=== PATIENT | male | born 1945 | race Caucasian/White ===

== ENCOUNTER 2017-09-27 11:20 | Outpatient (CLI) | payer MEDICARE | END 2017-09-28 11:21 | disposition EMS.NT | LOC: EMS 11:20 | PROVIDERS: ATTEND Surgery | DX: R68.89 Other general symptoms and signs (principal) ==

== ENCOUNTER 2021-04-19 16:29 | Outpatient (CLI) | payer MEDICARE | END 2021-04-19 16:30 | disposition critical access hospital (66) | LOC: EMS 16:29 | DX: Z03.89 Encounter for observation for other suspected diseases and conditions ruled out (principal); Z74.09 Other reduced mobility | CPT/HCPCS: A0425; A0429 ==

== ENCOUNTER 2021-04-19 17:07 | Observation (INO) | payer MEDICARE ==
--- NOTE | 2021-04-19 17:58 | ED Physician Documentation ---
History of Present Illness - Stated complaint Stated Complaint: BOARDING - Chief complaint Chief Complaint: General - Additonal information Additional information: 75-year-old diabetic male presents to the emergency department requesting that he be sent to an assisted or half-way facility. 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 He was discharged to the [facility] in [place]. After being there for less than 24 hours they do not feel that they can adequately meet his care needs. They feel that he requires too much help with transfer and the patient does not feel safe with his care by himself or with transfers. he reports falling out of his wheelcair twice after being discharged. He has no acute concerns at this time other than the inability to adequately care for himself at [facility]. Review of Systems Constitutional: denies: Fever, Chills Nose: reports: Reviewed and negative Throat: reports: Reviewed and negative Cardiac: reports: Reviewed and negative Respiratory: reports: Reviewed and negative GI: reports: Reviewed and negative : reports: Reviewed and negative Skin: reports: Reviewed and negative Musculoskeletal: reports: Other (Right BKA) PD PAST MEDICAL HISTORY - Past Medical History Cardiovascular: High cholesterol Endocrine/Autoimmune: Type 2 diabetes - Past Surgical History Past Surgical History: Yes Ortho: Spine surgery - Present Medications Home Medications: Ambulatory Orders Medication Instructions Recorded Confirmed Acetaminophen [Tylenol] 650 mg PO Q4HR PRN 04/19/21 04/19/21 Amlodipine Besylate [Norvasc] 10 mg PO DAILY 04/19/21 04/19/21 Carisoprodol [Soma] 350 mg PO DAILY PRN 04/19/21 04/19/21 Ferrous Sulfate 325 mg PO DAILY 04/19/21 04/19/21 Gabapentin [Neurontin] 300 mg PO BID 04/19/21 04/19/21 Hydralazine HCl 100 mg PO TID 04/19/21 04/19/21 Insulin Glargine [Lantus Solostar] 15 unit SQ HS 04/19/21 04/19/21 Lisinopril [Zestril] 40 mg PO DAILY 04/19/21 04/19/21 Melatonin 3 mg PO HS 04/19/21 04/19/21 Morphine ER [Morphine Sulfate ER] 15 mg PO Q4HR PRN 04/19/21 04/19/21 Multivit with Iron,Minerals 1 each PO DAILY 04/19/21 04/19/21 [Complete Senior] Naloxone HCl [Narcan] 4 mg NS PRN PRN 04/19/21 04/19/21 Oxycodone HCl [Roxicodone] 15 mg PO Q4HR PRN 04/19/21 04/19/21 Pantoprazole [Protonix] 40 mg PO DAILY 04/19/21 04/19/21 Tamsulosin [Flomax] 0.4 mg PO DAILY 04/19/21 04/19/21 polyethylene glycoL 3350 [Miralax] 17 gm PO DAILY PRN 04/19/21 04/19/21 - Allergies Allergies/Adverse Reactions: Allergies Allergy/AdvReac Type Severity Reaction Status Date / Time ceftriaxone sodium * Allergy Severe burning in Verified 04/19/21 17:36 [From Rocephin] lungs prednisone Allergy Severe breathing Verified 04/19/21 17:36 problems vancomycin Allergy Severe bleeding Verified 04/19/21 17:36 from eyes and ears NSAIDS (Non-Steroidal Allergy Intermediate stomach Verified 04/19/21 17:36 Anti-Inflamma problems amoxicillin [From Augmentin] Allergy Unknown Verified 04/19/21 17:36 bee venom protein (honey bee) Allergy Anaphylaxis Verified 04/19/21 17:36 cephalexin Allergy Unknown Verified 04/19/21 17:36 ciprofloxacin Allergy abdominal Verified 04/19/21 17:36 pain ciprofloxacin HCl * Allergy abdominal Verified 04/19/21 17:36 [From Cipro] pain clavulanic acid Allergy Unknown Verified 04/19/21 17:36 [From Augmentin] piroxicam [From Feldene] Allergy Unknown Verified 04/19/21 17:36 pravastatin [From Pravachol] Allergy Unknown Verified 04/19/21 17:36 reserpine Allergy Unknown Verified 04/19/21 17:36 rosiglitazone [From Avandia] Allergy Unknown Verified 04/19/21 17:36 - Social History Does the pt smoke?: No Smoking Status: Former smoker Does the pt drink ETOH?: Yes Does the pt have substance abuse?: No - Immunizations Immunizations are current?: Yes PD ED PE NORMAL - General General: Alert and oriented X 3, No acute distress, Well developed/nourished - HEENT HEENT: Atraumatic, Ears normal - Neck Neck: Supple, no meningeal sign - Cardiac Cardiac: RRR, No murmur - Respiratory Respiratory: No respiratory distress, Clear bilaterally - Abdomen Abdomen: Normal bowel sounds, Soft - Back Back: No CVA TTP - Derm Derm: Warm and dry, No rash, Other (Right below the knee amputation. The stump is intact with well approximated suture Lines. No associated erythema or drainage. He does have a left partial great toe amputation. Dressing shows moderate amount of serous bloody drainage. No significant surrounding erythema or edema.) - Extremities Extremities: No deformity, No tenderness to palpate, Other (Right BKA stump intact. No erythema or drainage. Suture lines well approximated.) - Neuro Neuro: Alert and oriented X 3, phlebotomy director 2-12 intact Eye Opening: Spontaneous Motor: Obeys Commands Verbal: Oriented GCS Score: 15 Results - Vitals Vitals: Vital Signs - 24 hr 04/19/21 17:10 Temperature 36.7 C Heart Rate 72 Respiratory 15 Rate Blood Pressure 182/63 H O2 Saturation 99 Oxygen O2 Source Room air - Labs Labs: Laboratory Tests 04/19/21 04/19/21 18:17 18:17 WBC 7.7 RBC 3.95 L Hgb 10.8 L Hct 32.7 L MCV 82.8 MCH 27.3 MCHC 33.0 RDW 15.1 H Plt Count 400 MPV 9.2 Neut # (Auto) 6.3 Lymph # (Auto) 0.7 L [place] # (Auto) 0.5 Eos # (Auto) 0.1 Baso # (Auto) 0.1 Absolute Nucleated RBC 0.00 Nucleated RBC % 0.0 Sodium 129 L Potassium 4.7 Chloride 90 L Carbon Dioxide 28 Anion Gap 11.0 BUN 24 H Creatinine 0.9 Estimated GFR (MDRD) 83 L Glucose 177 H Calcium 9.8 Total Bilirubin 0.5 AST 21 ALT 23 Alkaline Phosphatase 77 Total Protein 8.3 H Albumin 4.1 Globulin 4.2 Albumin/Globulin Ratio 1.0 Lipase 25 PD MEDICAL DECISION MAKING - ED course Complexity details: reviewed results, re-evaluated patient, considered differential, d/w patient ED course: 75-year-old male who has a history of type 2 diabetes presents to the emergency department requesting assistance with either half-way or assisted living. He was discharged from [facility] yesterday after quite a lengthy hospitalization for a lower extremity infection which subsequently resulted in a right BKA. He was discharged to the [facility] in [place] however he has fallen twice out of his wheelchair and they do not feel that he is safe to return there. He is hopeful for assisted living versus half-way. Patient has no other acute medical complaints. He does not feel that he can live independently at this time. The [facility] has refused to take him back Patient screening labs are without acute worrisome findings. I did discuss with the patient that transfer placement to assisted living or half-way is challenging in the emergency department especially through the holiday weekend. In the interim he will board here pending further evaluation by social work in the a.m. 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
[2021-04-19 18:25] LABS: BASOPHILS # (AUTO) 0.1 10^3/uL (0.0-0.1); BASOPHILS % (AUTO) 0.7 %; EOSINOPHILS # (AUTO) 0.1 10^3/uL (0.0-0.7); EOSINOPHILS % (AUTO) 1.3 %; HCT - HEMATOCRIT 32.7 % (42.0-52.0); HGB - HEMOGLOBIN 10.8 g/dL (14.0-18.0); LYMPHOCYTES # (AUTO) 0.7 10^3/uL (1.5-3.5); MEAN CORPUSCULAR HEMOGLOBIN 27.3 pg (27.0-31.0); MEAN CORPUSCULAR VOLUME 82.8 fL (80.0-94.0); MEAN PLATELET VOLUME 9.2 fL (7.4-11.4); MONOCYTES # (AUTO) 0.5 10^3/uL (0.0-1.0); MONOCYTES % (AUTO) 6.3 %; NEUTROPHILS # (AUTO) 6.3 10^3/uL (1.5-6.6); NEUTROPHILS % (AUTO) 82.4 %; PLT - PLATELET COUNT 400 10^3/uL (130-450); RED BLOOD COUNT 3.95 10^6/uL (4.70-6.10); RED CELL DISTRIBUTION WIDTH 15.1 % (12.0-15.0); WHITE BLOOD COUNT 7.7 x10^3/uL (4.8-10.8)
[2021-04-19 18:36] LABS: ALBUMIN 4.1 g/dL (3.2-5.5); BILIRUBIN,TOTAL 0.5 mg/dL (0.2-1.0); CALCIUM 9.8 mg/dL (8.5-10.3); CREATININE 0.9 mg/dL (0.6-1.2); POTASSIUM 4.7 mmol/L (3.5-5.0); TOTAL PROTEIN 8.3 g/dL (6.7-8.2)
--- NOTE | 2021-04-20 12:03 | ED Physician Documentation ---
ED Addendum - Addendum Addendum: 04/20/21 12:03 PT has remained in the ED overnight. Seen by ROSLYN today. He is unable to be received back at [facility] as his care needs exceed what they can provide. ROSLYN is attempting to reach [facility] rehab to discuss re-placing him there, but given the Holiday it is unlikely that this can occur. He is not safe to be discharge directly from the ED without a proper living facility given his inability to transfer from the wheel chair to bed or commode without assistance. A PT ref erral has been placed in the computer I have requested pharmacy to input all his regularly scheduled meds. Will also request glucose checks BID. Hospital bed has been ordered. It is possible that we may be able to crate a swing bed for the patient in the next few days. However until a swing bed is created or a more formal discharge plan is crated, he will continue to board here in the ED At this time he otherwise well appearing, stable vitals and engaging with staff. Eating his meals well.
[2021-04-20] MEDS: lisinopriL 20 MG TABLET PO SCH (13:13)
[2021-04-20] MEDS: FERROUS SULFATE 325 MG TABLET PO STA (13:13)
[2021-04-20] MEDS: GABAPENTIN 300 MG CAPSULE PO SCH ×2 (13:13→21:10)
[2021-04-20] MEDS: amLODIPine 5 MG TABLET PO SCH (13:13)
[2021-04-20] MEDS: TAMSULOSIN 0.4 MG CAPSULE PO SCH (13:13)
[2021-04-20] MEDS: oxyCODONE 5 MG TABLET PO PRN ×2 (14:15→19:37)
[2021-04-20] MEDS: hydrALAZINE 25 MG TABLET PO SCH ×2 (15:10→21:11)
[2021-04-20] MEDS: PANTOPRAZOLE 40 MG TABLET PO SCH (17:26)
[2021-04-20] MEDS: MORPHINE IR 15 MG TABLET PO PRN (17:27)
[2021-04-20] MEDS: INSULIN GLARGINE 300 UNIT/3 ML PEN SUBQ SCH (21:06)
[2021-04-20] MEDS: METHADONE 5 MG TABLET PO PRN (22:23)
[2021-04-21] MEDS: oxyCODONE 5 MG TABLET PO PRN ×4 (02:38→19:39)
[2021-04-21] MEDS: MORPHINE IR 15 MG TABLET PO PRN ×3 (05:39→21:35)
[2021-04-21] MEDS: hydrALAZINE 25 MG TABLET PO SCH ×3 (05:39→21:35)
[2021-04-21] MEDS: PANTOPRAZOLE 40 MG TABLET PO SCH ×2 (07:52→16:35)
[2021-04-21] MEDS: MULTIVITAMIN W/MINERALS TABLET PO SCH (07:55)
[2021-04-21] MEDS: GABAPENTIN 300 MG CAPSULE PO SCH ×2 (08:01→21:35)
[2021-04-21] MEDS: lisinopriL 20 MG TABLET PO SCH (08:01)
[2021-04-21] MEDS: amLODIPine 5 MG TABLET PO SCH (08:01)
[2021-04-21] MEDS: TAMSULOSIN 0.4 MG CAPSULE PO SCH (08:01)
[2021-04-21] MEDS: METHADONE 5 MG TABLET PO PRN ×2 (09:21→23:10)
[2021-04-21] MEDS ORDERED: methocarbamoL 500 MG TABLET PO STA (14:08)
--- NOTE | 2021-04-21 18:02 | ED Physician Documentation ---
ED Addendum - Addendum Addendum: 04/21/21 18:01 Patient remains in the emergency department and has been clinically and hemodynamically stable. He was seen by physical therapy today. Please see their note. Social work continues to look for formal disposition however given the holiday weekend this is a patient that will likely remain in our ER for an extended period of time. He does remain on the appropriately prescribed medications that he was discharged from [facility] with. He has occasionally requested oral pain medicine as well as a muscle relaxer. He has been appropriate in his interactions with staff.
[2021-04-21] MEDS: INSULIN GLARGINE 300 UNIT/3 ML PEN SUBQ SCH (21:45)
[2021-04-21] MEDS ORDERED: INSULIN GLARGINE 300 UNIT/3 ML PEN SUBQ SCH (22:00)
[2021-04-22] MEDS ORDERED: NYSTATIN CREAM 15 GM TUBE TOP STA (00:24)
[2021-04-22] MEDS: COD LIVER OIL/ZINC OXIDE 113 GM TUBE TOP SCH ×3 (00:27→21:37)
[2021-04-22] MEDS: oxyCODONE 5 MG TABLET PO PRN ×5 (01:23→21:42)
[2021-04-22] MEDS ORDERED: CYCLOBENZAPRINE 10 MG TABLET PO STA (02:09)
[2021-04-22] MEDS: MORPHINE IR 15 MG TABLET PO PRN ×2 (02:14→19:44)
[2021-04-22] MEDS: hydrALAZINE 25 MG TABLET PO SCH ×3 (06:04→21:57)
[2021-04-22] MEDS: PANTOPRAZOLE 40 MG TABLET PO SCH ×2 (06:52→15:48)
[2021-04-22] MEDS: amLODIPine 5 MG TABLET PO SCH (09:09)
[2021-04-22] MEDS: FERROUS SULFATE 325 MG TABLET PO STA (09:09)
[2021-04-22] MEDS: TAMSULOSIN 0.4 MG CAPSULE PO SCH (09:10)
[2021-04-22] MEDS: lisinopriL 20 MG TABLET PO SCH (09:10)
[2021-04-22] MEDS: GABAPENTIN 300 MG CAPSULE PO SCH ×2 (09:10→21:37)
[2021-04-22] MEDS: MULTIVITAMIN W/MINERALS TABLET PO SCH (09:10)
[2021-04-22] MEDS: FERROUS SULFATE 325 MG TABLET PO SCH (09:22)
--- NOTE | 2021-04-22 21:12 | ED Physician Documentation ---
ED Addendum - Addendum Addendum: 04/22/21 21:11 Patient remains in the emergency department and is clinically stable. His vital signs have been without worrisome findings. He is eating his meals well. I have made a dose adjustment to his Lantus to reflect blood glucose readings. His Lantus was increased from 70 units to 10 units nightly. Social work will continue to search for a swing bed or appropriate placement. Physical therapy saw the patient yesterday and he does not meet fdc facility requi rements as he is too functional.
[2021-04-22] MEDS: INSULIN GLARGINE 300 UNIT/3 ML PEN SUBQ SCH (21:37)
[2021-04-22] MEDS: polyethylene glycoL 3350 17 GM PACKET PO PRN (21:37)
[2021-04-22] MEDS: METHADONE 5 MG TABLET PO PRN (23:08)
[2021-04-23] MEDS ORDERED: CYCLOBENZAPRINE 10 MG TABLET PO STA (01:25)
[2021-04-23] MEDS: oxyCODONE 5 MG TABLET PO PRN ×5 (01:39→20:11)
[2021-04-23] MEDS: hydrALAZINE 25 MG TABLET PO SCH ×3 (06:39→21:10)
[2021-04-23] MEDS: PANTOPRAZOLE 40 MG TABLET PO SCH ×2 (06:39→16:03)
[2021-04-23] MEDS: lisinopriL 20 MG TABLET PO SCH (08:27)
[2021-04-23] MEDS: GABAPENTIN 300 MG CAPSULE PO SCH ×2 (08:28→21:10)
[2021-04-23] MEDS: amLODIPine 5 MG TABLET PO SCH (08:28)
[2021-04-23] MEDS: MORPHINE IR 15 MG TABLET PO PRN ×2 (08:28→14:03)
[2021-04-23] MEDS: MULTIVITAMIN W/MINERALS TABLET PO SCH (08:28)
[2021-04-23] MEDS: TAMSULOSIN 0.4 MG CAPSULE PO SCH (08:28)
[2021-04-23] MEDS: COD LIVER OIL/ZINC OXIDE 113 GM TUBE TOP SCH ×2 (08:30→21:09)
[2021-04-23] MEDS: CYCLOBENZAPRINE 10 MG TABLET PO PRN (16:54)
[2021-04-23] MEDS: polyethylene glycoL 3350 17 GM PACKET PO PRN (17:29)
[2021-04-23] MEDS: INSULIN GLARGINE 300 UNIT/3 ML PEN SUBQ SCH (21:09)
[2021-04-23] MEDS: METHADONE 5 MG TABLET PO PRN (22:09)
[2021-04-24] MEDS: oxyCODONE 5 MG TABLET PO PRN ×4 (00:10→20:52)
[2021-04-24] MEDS: hydrALAZINE 25 MG TABLET PO SCH ×3 (05:55→21:22)
[2021-04-24] MEDS: PANTOPRAZOLE 40 MG TABLET PO SCH ×2 (09:23→15:41)
[2021-04-24] MEDS: MULTIVITAMIN W/MINERALS TABLET PO SCH (09:23)
[2021-04-24] MEDS: amLODIPine 5 MG TABLET PO SCH (09:51)
[2021-04-24] MEDS: GABAPENTIN 300 MG CAPSULE PO SCH ×2 (09:51→20:52)
[2021-04-24] MEDS: lisinopriL 20 MG TABLET PO SCH (09:51)
[2021-04-24] MEDS: TAMSULOSIN 0.4 MG CAPSULE PO SCH (09:51)
[2021-04-24] MEDS: FERROUS SULFATE 325 MG TABLET PO SCH (09:51)
[2021-04-24] MEDS: MORPHINE IR 15 MG TABLET PO PRN ×2 (11:49→18:20)
[2021-04-24] MEDS: COD LIVER OIL/ZINC OXIDE 113 GM TUBE TOP SCH ×2 (13:13→20:55)
[2021-04-24] MEDS ORDERED: LACTULOSE 10 GM /15 ML UDC PO STA (16:36)
[2021-04-24] MEDS ORDERED: BACITRACIN ZINC OINT 1 PACKET TOP STA (16:36)
--- NOTE | 2021-04-24 16:39 | ED Physician Documentation ---
ED Addendum - Addendum Addendum: 04/24/21 16:37The patient states he has not had a bowel movement in the last several days despite MiraLAX. He asked for a little stronger medication. He states he is had "a sweet tasting liquid in the past" that worked well. I presume its lactulose. We can give a dose for him. He also asked to have his stump wound looked at which has had surgery a month ago and was due to have suture removal tomorrow by date. It is looking well at this point without any signs of infection. We can have the sutures and alfredito removed today and some ointment and rebandaged. Social work states there is a possibility he may build to go back to [facility] tomorrow if provided better care with walker or wheelchair etc. and home visits.
[2021-04-24] MEDS: INSULIN GLARGINE 300 UNIT/3 ML PEN SUBQ SCH (20:54)
[2021-04-25] MEDS: MORPHINE IR 15 MG TABLET PO PRN ×3 (00:04→17:32)
[2021-04-25] MEDS: CYCLOBENZAPRINE 10 MG TABLET PO PRN ×3 (02:15→19:01)
[2021-04-25] MEDS: oxyCODONE 5 MG TABLET PO PRN ×5 (05:43→23:52)
[2021-04-25] MEDS: hydrALAZINE 25 MG TABLET PO SCH ×3 (05:43→21:39)
[2021-04-25] MEDS: PANTOPRAZOLE 40 MG TABLET PO SCH ×2 (05:44→16:01)
[2021-04-25] MEDS: amLODIPine 5 MG TABLET PO SCH (10:09)
[2021-04-25] MEDS: MULTIVITAMIN W/MINERALS TABLET PO SCH (10:09)
[2021-04-25] MEDS: GABAPENTIN 300 MG CAPSULE PO SCH ×2 (10:09→21:31)
[2021-04-25] MEDS: FERROUS SULFATE 325 MG TABLET PO SCH (10:09)
[2021-04-25] MEDS: METHADONE 5 MG TABLET PO PRN (10:10)
[2021-04-25] MEDS: COD LIVER OIL/ZINC OXIDE 113 GM TUBE TOP SCH ×2 (10:11→21:38)
[2021-04-25] MEDS: TAMSULOSIN 0.4 MG CAPSULE PO SCH (10:13)
[2021-04-25] MEDS: lisinopriL 20 MG TABLET PO SCH (10:13)
[2021-04-25] MEDS: INSULIN GLARGINE 300 UNIT/3 ML PEN SUBQ SCH (21:31)
[2021-04-25] MEDS: polyethylene glycoL 3350 17 GM PACKET PO PRN (21:38)
[2021-04-26] MEDS: MORPHINE IR 15 MG TABLET PO PRN ×3 (02:15→21:16)
[2021-04-26] MEDS: oxyCODONE 5 MG TABLET PO PRN ×4 (04:34→23:00)
[2021-04-26] MEDS: CYCLOBENZAPRINE 10 MG TABLET PO PRN ×2 (04:34→15:31)
[2021-04-26] MEDS: hydrALAZINE 25 MG TABLET PO SCH ×3 (06:16→21:12)
[2021-04-26] MEDS: METHADONE 5 MG TABLET PO PRN ×2 (06:17→14:00)
[2021-04-26] MEDS: PANTOPRAZOLE 40 MG TABLET PO SCH ×2 (08:22→15:31)
[2021-04-26] MEDS: lisinopriL 20 MG TABLET PO SCH (08:22)
[2021-04-26] MEDS: amLODIPine 5 MG TABLET PO SCH (08:23)
[2021-04-26] MEDS: MULTIVITAMIN W/MINERALS TABLET PO SCH (08:23)
[2021-04-26] MEDS: TAMSULOSIN 0.4 MG CAPSULE PO SCH (08:23)
[2021-04-26] MEDS: GABAPENTIN 300 MG CAPSULE PO SCH ×2 (08:23→21:12)
[2021-04-26] MEDS: COD LIVER OIL/ZINC OXIDE 113 GM TUBE TOP SCH ×2 (09:07→21:13)
[2021-04-26] MEDS: polyethylene glycoL 3350 17 GM PACKET PO PRN (11:25)
[2021-04-26] MEDS: INSULIN GLARGINE 300 UNIT/3 ML PEN SUBQ SCH (21:12)
[2021-04-27] MEDS: MORPHINE IR 15 MG TABLET PO PRN ×3 (01:19→19:25)
[2021-04-27] MEDS: CYCLOBENZAPRINE 10 MG TABLET PO PRN ×2 (01:19→09:29)
[2021-04-27] MEDS: PANTOPRAZOLE 40 MG TABLET PO SCH ×2 (06:29→19:20)
[2021-04-27] MEDS: hydrALAZINE 25 MG TABLET PO SCH ×3 (06:29→20:53)
[2021-04-27] MEDS: oxyCODONE 5 MG TABLET PO PRN ×5 (06:29→23:32)
[2021-04-27] MEDS: lisinopriL 20 MG TABLET PO SCH (09:29)
[2021-04-27] MEDS: MULTIVITAMIN W/MINERALS TABLET PO SCH (09:29)
[2021-04-27] MEDS: FERROUS SULFATE 325 MG TABLET PO SCH (09:29)
[2021-04-27] MEDS: TAMSULOSIN 0.4 MG CAPSULE PO SCH (09:29)
[2021-04-27] MEDS: GABAPENTIN 300 MG CAPSULE PO SCH ×2 (09:30→20:53)
[2021-04-27] MEDS: amLODIPine 5 MG TABLET PO SCH (09:30)
[2021-04-27] MEDS: METHADONE 5 MG TABLET PO PRN (09:30)
--- NOTE | 2021-04-27 12:37 | ED Physician Documentation ---
History of Present Illness - Stated complaint Stated Complaint: BOARDING - Chief complaint Chief Complaint: General - Additonal information Additional information: 33-year-old male remains in the emergency department pending placement. It has proven difficult to find him [place] appropriate [place]. A new PT consult was ordered today and in conversation with the physical therapist she is going to make recommendations for group home facility placement. He will need group home for care of his left great toe wound as well as assistance with his ADLs. Though he is able to transfer safely he does have impulsivity and balance issues that would qualify him for group home. Review of the chart reveals that his blood sugars are consistently greater than 160. His Lantus will be increased to 15 units every afternoon. He otherwise remains hemodynamically and psychologically stable. PD PAST MEDICAL HISTORY - Past Medical History Past Medical History: Yes Cardiovascular: High cholesterol Endocrine/Autoimmune: Type 2 diabetes - Past Surgical History Past Surgical History: Yes Ortho: Spine surgery - Present Medications Home Medications: Ambulatory Orders Medication Instructions Recorded Confirmed Acetaminophen [Tylenol] 650 mg PO Q4HR PRN 04/19/21 04/19/21 Amlodipine Besylate [Norvasc] 10 mg PO DAILY 04/19/21 04/19/21 Carisoprodol [Soma] 350 mg PO DAILY PRN 04/19/21 04/19/21 Ferrous Sulfate 325 mg PO DAILY 04/19/21 04/19/21 Gabapentin [Neurontin] 300 mg PO BID 04/19/21 04/19/21 Hydralazine HCl 100 mg PO TID 04/19/21 04/19/21 Insulin Glargine [Lantus Solostar] 15 unit SQ HS 04/19/21 04/19/21 Lisinopril [Zestril] 40 mg PO DAILY 04/19/21 04/19/21 Melatonin 3 mg PO HS 04/19/21 04/19/21 Morphine ER [Morphine Sulfate ER] 15 mg PO Q4HR PRN 04/19/21 04/19/21 Multivit with Iron,Minerals 1 each PO DAILY 04/19/21 04/19/21 [Complete Senior] Naloxone HCl [Narcan] 4 mg NS PRN PRN 04/19/21 04/19/21 Oxycodone HCl [Roxicodone] 15 mg PO Q4HR PRN 04/19/21 04/19/21 Pantoprazole [Protonix] 40 mg PO DAILY 04/19/21 04/19/21 Tamsulosin [Flomax] 0.4 mg PO DAILY 04/19/21 04/19/21 polyethylene glycoL 3350 [Miralax] 17 gm PO DAILY PRN 04/19/21 04/19/21 - Allergies Allergies/Adverse Reactions: Allergies Allergy/AdvReac Type Severity Reaction Status Date / Time ceftriaxone sodium * Allergy Severe burning in Verified 04/19/21 17:36 [From Rocephin] lungs prednisone Allergy Severe breathing Verified 04/19/21 17:36 problems vancomycin Allergy Severe bleeding Verified 04/19/21 17:36 from eyes and ears NSAIDS (Non-Steroidal Allergy Intermediate stomach Verified 04/19/21 17:36 Anti-Inflamma problems amoxicillin [From Augmentin] Allergy Unknown Verified 04/19/21 17:36 bee venom protein (honey bee) Allergy Anaphylaxis Verified 04/19/21 17:36 cephalexin Allergy Unknown Verified 04/19/21 17:36 ciprofloxacin Allergy abdominal Verified 04/19/21 17:36 pain ciprofloxacin HCl * Allergy abdominal Verified 04/19/21 17:36 [From Cipro] pain clavulanic acid Allergy Unknown Verified 04/19/21 17:36 [From Augmentin] piroxicam [From Feldene] Allergy Unknown Verified 04/19/21 17:36 pravastatin [From Pravachol] Allergy Unknown Verified 04/19/21 17:36 reserpine Allergy Unknown Verified 04/19/21 17:36 rosiglitazone [From Avandia] Allergy Unknown Verified 04/19/21 17:36 - Social History Does the pt smoke?: No Smoking Status: Former smoker Does the pt drink ETOH?: Yes Does the pt have substance abuse?: No - Immunizations Immunizations are current?: Yes Results - Vitals Vitals: Vital Signs - 24 hr 04/26/21 04/26/21 04/27/21 13:55 21:11 06:17 Temperature 36.5 C Heart Rate 70 72 Respiratory 16 16 Rate Blood Pressure 143/66 H 156/54 H 149/61 H O2 Saturation 98 99 Oxygen O2 Source Room air - Labs Labs: Laboratory Tests 04/19/21 04/19/21 18:17 18:17 WBC 7.7 RBC 3.95 L Hgb 10.8 L Hct 32.7 L MCV 82.8 MCH 27.3 MCHC 33.0 RDW 15.1 H Plt Count 400 MPV 9.2 Neut # (Auto) 6.3 Lymph # (Auto) 0.7 L [place] # (Auto) 0.5 Eos # (Auto) 0.1 Baso # (Auto) 0.1 Absolute Nucleated RBC 0.00 Nucleated RBC % 0.0 Sodium 129 L Potassium 4.7 Chloride 90 L Carbon Dioxide 28 Anion Gap 11.0 BUN 24 H Creatinine 0.9 Estimated GFR (MDRD) 83 L Glucose 177 H Calcium 9.8 Total Bilirubin 0.5 AST 21 ALT 23 Alkaline Phosphatase 77 Total Protein 8.3 H Albumin 4.1 Globulin 4.2 Albumin/Globulin Ratio 1.0 Lipase 25 Departure - Departure Clinical Impression: Hx of right BKA, Left great toe amputee, Mobility impaired DMII (diabetes mellitus, type 2) Qualifiers: Diabetes mellitus termite helper insulin use: with fci use Diabetes mellitus complication status: with skin complications Diabetes mellitus complication detail: with other skin complication Qualified Code(s): E11.628 - Type 2 diabetes mellitus with other skin complications
[2021-04-27] MEDS: COD LIVER OIL/ZINC OXIDE 113 GM TUBE TOP SCH ×2 (13:00→20:42)
[2021-04-27] MEDS: INSULIN GLARGINE 300 UNIT/3 ML PEN SUBQ SCH (20:52)
[2021-04-27] MEDS: polyethylene glycoL 3350 17 GM PACKET PO PRN (23:33)
[2021-04-28] MEDS: MORPHINE IR 15 MG TABLET PO PRN ×3 (01:16→22:36)
[2021-04-28] MEDS: CYCLOBENZAPRINE 10 MG TABLET PO PRN ×2 (03:08→12:03)
[2021-04-28] MEDS: hydrALAZINE 25 MG TABLET PO SCH ×3 (06:09→21:18)
[2021-04-28] MEDS: oxyCODONE 5 MG TABLET PO PRN ×3 (06:16→19:28)
[2021-04-28] MEDS: PANTOPRAZOLE 40 MG TABLET PO SCH ×2 (06:50→15:03)
[2021-04-28] MEDS: amLODIPine 5 MG TABLET PO SCH (08:23)
[2021-04-28] MEDS: MULTIVITAMIN W/MINERALS TABLET PO SCH (08:23)
[2021-04-28] MEDS: COD LIVER OIL/ZINC OXIDE 113 GM TUBE TOP SCH ×2 (08:24→21:18)
[2021-04-28] MEDS: lisinopriL 20 MG TABLET PO SCH (08:24)
[2021-04-28] MEDS: GABAPENTIN 300 MG CAPSULE PO SCH ×2 (08:24→21:18)
[2021-04-28] MEDS: TAMSULOSIN 0.4 MG CAPSULE PO SCH (08:24)
[2021-04-28] MEDS: METHADONE 5 MG TABLET PO PRN (14:17)
[2021-04-28] MEDS: INSULIN GLARGINE 300 UNIT/3 ML PEN SUBQ SCH (21:18)
[2021-04-29] MEDS: MORPHINE IR 15 MG TABLET PO PRN ×3 (05:51→21:54)
[2021-04-29] MEDS: hydrALAZINE 25 MG TABLET PO SCH ×3 (05:52→21:51)
[2021-04-29] MEDS: PANTOPRAZOLE 40 MG TABLET PO SCH ×2 (05:52→15:40)
[2021-04-29] MEDS: oxyCODONE 5 MG TABLET PO PRN ×2 (08:24→18:16)
[2021-04-29] MEDS: GABAPENTIN 300 MG CAPSULE PO SCH ×2 (08:56→21:52)
[2021-04-29] MEDS: lisinopriL 20 MG TABLET PO SCH (08:56)
[2021-04-29] MEDS: amLODIPine 5 MG TABLET PO SCH (08:56)
[2021-04-29] MEDS: MULTIVITAMIN W/MINERALS TABLET PO SCH (08:56)
[2021-04-29] MEDS: COD LIVER OIL/ZINC OXIDE 113 GM TUBE TOP SCH ×2 (08:56→21:45)
[2021-04-29] MEDS: TAMSULOSIN 0.4 MG CAPSULE PO SCH (08:57)
[2021-04-29] MEDS: polyethylene glycoL 3350 17 GM PACKET PO PRN (11:39)
--- NOTE | 2021-04-29 11:55 | ED Physician Documentation ---
ED Addendum - Addendum Addendum: 04/29/21 11:52 75-year-old male who has a history of diabetes as well as recent right BKA and left great toe amputation remains in the emergency department pending placement. Continue to seek evaluation with social work for placement in a [place] associated retirement facility or [place] approved housing. Recently seen by us physical therapy who recommended further rehab and retirement placement. Wounds have recently been evaluated all appear clean and without signs of infection. Great toe amputation has been dressed with Xeroform and shows no signs of active infection or drainage. He remains on routine maintenance medications. Fasting sugars in the morning have been in the 150s to the 180s. We will increase his Lantus to 18 units every afternoon.
[2021-04-29] MEDS: METHADONE 5 MG TABLET PO PRN (15:04)
[2021-04-29] MEDS: CYCLOBENZAPRINE 10 MG TABLET PO PRN (15:04)
[2021-04-29] MEDS: ACETAMINOPHEN 325 MG TABLET PO PRN (18:16)
[2021-04-29] MEDS: INSULIN GLARGINE 300 UNIT/3 ML PEN SUBQ SCH (21:50)
[2021-04-30] MEDS: CYCLOBENZAPRINE 10 MG TABLET PO PRN ×2 (01:13→23:36)
[2021-04-30] MEDS: oxyCODONE 5 MG TABLET PO PRN ×4 (01:14→23:36)
[2021-04-30] MEDS: MORPHINE IR 15 MG TABLET PO PRN ×3 (04:08→21:01)
[2021-04-30] MEDS: ACETAMINOPHEN 325 MG TABLET PO PRN ×3 (04:08→21:01)
[2021-04-30] MEDS: hydrALAZINE 25 MG TABLET PO SCH ×3 (06:29→21:25)
[2021-04-30] MEDS: PANTOPRAZOLE 40 MG TABLET PO SCH ×2 (06:30→15:49)
[2021-04-30] MEDS: MULTIVITAMIN W/MINERALS TABLET PO SCH (08:48)
[2021-04-30] MEDS: TAMSULOSIN 0.4 MG CAPSULE PO SCH (08:48)
[2021-04-30] MEDS: lisinopriL 20 MG TABLET PO SCH (08:48)
[2021-04-30] MEDS: amLODIPine 5 MG TABLET PO SCH (08:49)
[2021-04-30] MEDS: GABAPENTIN 300 MG CAPSULE PO SCH ×2 (08:49→21:01)
[2021-04-30] MEDS: FERROUS SULFATE 325 MG TABLET PO SCH (08:50)
[2021-04-30] MEDS: COD LIVER OIL/ZINC OXIDE 113 GM TUBE TOP SCH ×2 (08:51→21:01)
[2021-04-30] MEDS: INSULIN GLARGINE 300 UNIT/3 ML PEN SUBQ SCH (21:03)
[2021-04-30] MEDS: polyethylene glycoL 3350 17 GM PACKET PO PRN (22:58)
[2021-05-01] MEDS: oxyCODONE 5 MG TABLET PO PRN ×4 (06:04→22:46)
[2021-05-01] MEDS: hydrALAZINE 25 MG TABLET PO SCH ×3 (06:05→22:35)
[2021-05-01] MEDS: PANTOPRAZOLE 40 MG TABLET PO SCH ×2 (06:28→16:58)
[2021-05-01] MEDS: GABAPENTIN 300 MG CAPSULE PO SCH ×2 (08:07→21:20)
[2021-05-01] MEDS: MULTIVITAMIN W/MINERALS TABLET PO SCH (08:07)
[2021-05-01] MEDS: COD LIVER OIL/ZINC OXIDE 113 GM TUBE TOP SCH ×2 (08:07→21:46)
[2021-05-01] MEDS: amLODIPine 5 MG TABLET PO SCH (08:07)
[2021-05-01] MEDS: MORPHINE IR 15 MG TABLET PO PRN (08:08)
[2021-05-01] MEDS: lisinopriL 20 MG TABLET PO SCH (08:08)
[2021-05-01] MEDS: TAMSULOSIN 0.4 MG CAPSULE PO SCH (08:08)
[2021-05-01 08:59] LABS: RAPID STREP SCREEN Negative (Negative)
--- NOTE | 2021-05-01 13:21 | ED Physician Documentation ---
ED Addendum - Addendum Addendum: 05/01/21 13:12 Patient continues to board in the emergency department pending placement at either appropriate [facility]ci facility or [place] associated [place] residency. Nursing staff has expressed concern to the provider about the volume and frequency of his chronic pain medications. I have asked our pharmacist to evaluate his current pain regimen. We will transition the methadone from as needed to scheduled dosing of15 mg of methadone 3 times daily. We will discontinue the immediate release morphine but continue the as needed oxycodone every 4 hours. Over a few days time we may be able to titrate up the methadone to a possible goal of 20-25 mg TID. However ultimately he may require a dose of 60 mg TID, though this is a titration that should be done closely over time. Our pharmacist has discussed patient's pain medication regimen with his pain physician. Their ultimate goal was to transition the patient solely to methadone and discontinue the IR oxycodone and morphine, which has proven a difficult task. Patient remains clinically stable. His fasting a.m. blood sugar was improved this morning after increasing his Lantus to 18 mg nightly. He remains hemodynamically stable tolerating diet. His wounds otherwise appear clean without signs of infection. Social work continues to evaluate placement options.
--- NOTE | 2021-05-01 13:29 | PHARMACY PROGRESS NOTE ---
- Best Possible Medication History Admit Date and Time: Patient in ED Processed by: Pharmacy Requested by LES Frank to evaluate and recommend pain regimen in this opiate tolerant gentleman. Patient is treated for chronic pain by Dr. Ash Min at [facility]. His current regimen consists of methadone 10mg q3-4H, immediate release oxycodone 15mg q4H and immediate release morphine 15mg q4H, all as needed. In an effort to reduce the use of as needed medications, I am recommending to start with a scheduled dose of methadone at 15mg three times daily with as needed oxycodone 15 mg q4h and stopping the morphine. The plan is to titrate the methadone up to 20 or 25 mg TID and to reduce the need for as needed medications. Staff should monitor for any signs or symptoms of opiate over use while we are titrating the methadone dose up.
[2021-05-01] MEDS: METHADONE 5 MG TABLET PO SCH ×2 (14:41→22:35)
[2021-05-01] MEDS: ACETAMINOPHEN 325 MG TABLET PO PRN (16:58)
[2021-05-01] MEDS: INSULIN GLARGINE 300 UNIT/3 ML PEN SUBQ SCH (22:37)
[2021-05-02] MEDS: CYCLOBENZAPRINE 10 MG TABLET PO PRN ×2 (04:02→13:42)
[2021-05-02] MEDS: oxyCODONE 5 MG TABLET PO PRN ×4 (04:02→18:21)
[2021-05-02] MEDS: METHADONE 5 MG TABLET PO SCH ×3 (06:27→21:44)
[2021-05-02] MEDS: hydrALAZINE 25 MG TABLET PO SCH ×3 (06:27→21:43)
[2021-05-02] MEDS: PANTOPRAZOLE 40 MG TABLET PO SCH ×2 (06:27→16:42)
[2021-05-02] MEDS: ACETAMINOPHEN 325 MG TABLET PO PRN ×2 (06:31→18:20)
[2021-05-02] MEDS: GABAPENTIN 300 MG CAPSULE PO SCH ×2 (09:26→21:43)
[2021-05-02] MEDS: TAMSULOSIN 0.4 MG CAPSULE PO SCH (09:26)
[2021-05-02] MEDS: MULTIVITAMIN W/MINERALS TABLET PO SCH (09:27)
[2021-05-02] MEDS: FERROUS SULFATE 325 MG TABLET PO SCH (09:27)
[2021-05-02] MEDS: amLODIPine 5 MG TABLET PO SCH (09:27)
[2021-05-02] MEDS: lisinopriL 20 MG TABLET PO SCH (09:27)
[2021-05-02] MEDS: COD LIVER OIL/ZINC OXIDE 113 GM TUBE TOP SCH ×2 (09:28→21:59)
--- NOTE | 2021-05-02 17:12 | ED Physician Documentation ---
ED Addendum - Addendum Addendum: 05/02/21 17:10Patient on regular medications and diet. Performing ADLs himself here. SW note states potential [facility] requesting updated OT notes re: IADLs as they need him to be independent on ADLs to receive him.
[2021-05-02] MEDS ORDERED: MORPHINE ER 15 MG TABLET PO STA (18:35)
--- NOTE | 2021-05-02 18:37 | ED Physician Documentation ---
ED Addendum - Addendum Addendum: 05/02/21 18:35 RN came and states that the patient is not having his pain controlled on the new medication regimen. Unclear why the morphine was stopped prior to the methadone being increased. Recommend contacting his pain doctor tomorrow for clarification.
[2021-05-02] MEDS: polyethylene glycoL 3350 17 GM PACKET PO PRN (21:42)
[2021-05-02] MEDS: INSULIN GLARGINE 300 UNIT/3 ML PEN SUBQ SCH (21:47)
[2021-05-03] MEDS: CYCLOBENZAPRINE 10 MG TABLET PO PRN ×2 (01:32→15:16)
[2021-05-03] MEDS: oxyCODONE 5 MG TABLET PO PRN ×4 (01:32→23:58)
[2021-05-03] MEDS: ACETAMINOPHEN 325 MG TABLET PO PRN ×2 (02:27→20:20)
[2021-05-03] MEDS: PANTOPRAZOLE 40 MG TABLET PO SCH ×2 (06:17→17:13)
[2021-05-03] MEDS: hydrALAZINE 25 MG TABLET PO SCH ×3 (06:17→21:19)
[2021-05-03] MEDS: METHADONE 5 MG TABLET PO SCH ×3 (06:17→21:20)
[2021-05-03] MEDS: MULTIVITAMIN W/MINERALS TABLET PO SCH (11:27)
[2021-05-03] MEDS: GABAPENTIN 300 MG CAPSULE PO SCH ×2 (11:27→21:18)
[2021-05-03] MEDS: amLODIPine 5 MG TABLET PO SCH (11:27)
[2021-05-03] MEDS: lisinopriL 20 MG TABLET PO SCH (11:27)
[2021-05-03] MEDS: COD LIVER OIL/ZINC OXIDE 113 GM TUBE TOP SCH ×2 (11:28→21:18)
[2021-05-03] MEDS: TAMSULOSIN 0.4 MG CAPSULE PO SCH (11:28)
[2021-05-03] MEDS: INSULIN GLARGINE 300 UNIT/3 ML PEN SUBQ SCH (21:18)
[2021-05-04] MEDS: CYCLOBENZAPRINE 10 MG TABLET PO PRN (02:12)
[2021-05-04] MEDS: polyethylene glycoL 3350 17 GM PACKET PO PRN (03:10)
[2021-05-04] MEDS: hydrALAZINE 25 MG TABLET PO SCH ×3 (06:17→21:10)
[2021-05-04] MEDS: METHADONE 5 MG TABLET PO SCH ×3 (06:50→21:10)
[2021-05-04] MEDS: PANTOPRAZOLE 40 MG TABLET PO SCH ×2 (06:57→16:43)
[2021-05-04] MEDS: GABAPENTIN 300 MG CAPSULE PO SCH ×2 (09:34→21:02)
[2021-05-04] MEDS: lisinopriL 20 MG TABLET PO SCH (09:34)
[2021-05-04] MEDS: FERROUS SULFATE 325 MG TABLET PO SCH (09:34)
[2021-05-04] MEDS: MULTIVITAMIN W/MINERALS TABLET PO SCH (09:34)
[2021-05-04] MEDS: amLODIPine 5 MG TABLET PO SCH (09:34)
[2021-05-04] MEDS: TAMSULOSIN 0.4 MG CAPSULE PO SCH (09:34)
[2021-05-04] MEDS: oxyCODONE 5 MG TABLET PO PRN ×3 (09:35→23:16)
[2021-05-04] MEDS: ACETAMINOPHEN 325 MG TABLET PO PRN ×2 (09:35→14:08)
[2021-05-04] MEDS: COD LIVER OIL/ZINC OXIDE 113 GM TUBE TOP SCH ×2 (09:35→21:02)
[2021-05-04] MEDS: INSULIN GLARGINE 300 UNIT/3 ML PEN SUBQ SCH (21:02)
[2021-05-05] MEDS ORDERED: CIPROFLOXACIN 250 MG TABLET PO STA (01:00)
--- NOTE | 2021-05-05 01:05 | ED Physician Documentation ---
ED Addendum - Addendum Addendum: 05/05/21 01:01 I was asked by ED RN to assess patient's left 2nd toe; patient has been noting swelling and redness of the toe. On my exam, there is erythema and swelling of the left 2nd toe without fluctuance or discharge. Will start BID cipro for possible infection (cellulitis). He lists several antibiotic allergies, but cipro is listed under "intolerance", and patient and I discussed this. He says it causes some GI upset but willing to try the cipro and this can be changed should he develop GI symptoms that he feels are too uncomfortable to tolerate.
[2021-05-05] MEDS: CYCLOBENZAPRINE 10 MG TABLET PO PRN (01:34)
[2021-05-05] MEDS: METHADONE 5 MG TABLET PO SCH ×3 (06:25→13:36)
[2021-05-05] MEDS: hydrALAZINE 25 MG TABLET PO SCH ×3 (06:27→21:32)
[2021-05-05] MEDS: PANTOPRAZOLE 40 MG TABLET PO SCH ×2 (06:27→17:23)
[2021-05-05] MEDS: lisinopriL 20 MG TABLET PO SCH (08:52)
[2021-05-05] MEDS: GABAPENTIN 300 MG CAPSULE PO SCH ×2 (08:52→21:13)
[2021-05-05] MEDS: FERROUS SULFATE 325 MG TABLET PO SCH (08:52)
[2021-05-05] MEDS: amLODIPine 5 MG TABLET PO SCH (08:54)
[2021-05-05] MEDS: COD LIVER OIL/ZINC OXIDE 113 GM TUBE TOP SCH ×2 (08:55→21:13)
[2021-05-05] MEDS: TAMSULOSIN 0.4 MG CAPSULE PO SCH (08:55)
[2021-05-05] MEDS: MULTIVITAMIN W/MINERALS TABLET PO SCH (08:55)
[2021-05-05] MEDS ORDERED: CIPROFLOXACIN 250 MG TABLET PO SCH ×2 (09:00→21:00)
--- NOTE | 2021-05-05 14:19 | CONSULTATION NOTE ---
Referring Provider Name of Referring Provider:: Dr. 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 pt report Dr. Hina Alcaraz [employer] did surgery for him at [facility]. pt was discharged to the [facility] in [place]. But The [facility] do not feel that they can adequately meet pt's care needs Per ER's note, then pt has been already boarding to our ER for 14 days. our social services specialist was consulted for replacement for pt. Today medical team was consulted for medical management for pt and Dr. Maria asked me consult for medical management for pt at ER. The only complaint pt has on today is that he just find his left second toe has mild erythema and mild swelling, comparing when he was discharged from [facility] two weeks ago. He denies fever, chill, pain, shortness of breath, chest pain. he report he has good energy and good appetite as well. History - Past Medical History Cardiovascular: reports: High cholesterol Endocrine/Autoimmune: reports: Type 2 diabetes MRSA Hx?: Yes - Past Surgical History Ortho: reports: Spine surgery Meds/Allgy - Home Medications Home Medications: Ambulatory Orders Medication Instructions Recorded Confirmed Acetaminophen [Tylenol] 650 mg PO Q4HR PRN 04/19/21 04/19/21 Amlodipine Besylate [Norvasc] 10 mg PO DAILY 04/19/21 04/19/21 Carisoprodol [Soma] 350 mg PO DAILY PRN 04/19/21 04/19/21 Ferrous Sulfate 325 mg PO DAILY 04/19/21 04/19/21 Gabapentin [Neurontin] 300 mg PO BID 04/19/21 04/19/21 Hydralazine HCl 100 mg PO TID 04/19/21 04/19/21 Insulin Glargine [Lantus Solostar] 15 unit SQ HS 04/19/21 04/19/21 Lisinopril [Zestril] 40 mg PO DAILY 04/19/21 04/19/21 Melatonin 3 mg PO HS 04/19/21 04/19/21 Morphine ER [Morphine Sulfate ER] 15 mg PO Q4HR PRN 04/19/21 04/19/21 Multivit with Iron,Minerals 1 each PO DAILY 04/19/21 04/19/21 [Complete Senior] Naloxone HCl [Narcan] 4 mg NS PRN PRN 04/19/21 04/19/21 Oxycodone HCl [Roxicodone] 15 mg PO Q4HR PRN 04/19/21 04/19/21 Pantoprazole [Protonix] 40 mg PO DAILY 04/19/21 04/19/21 Tamsulosin [Flomax] 0.4 mg PO DAILY 04/19/21 04/19/21 polyethylene glycoL 3350 [Miralax] 17 gm PO DAILY PRN 04/19/21 04/19/21 - Allergies Allergies/Adverse Reactions: Allergies Allergy/AdvReac Type Severity Reaction Status Date / Time ceftriaxone sodium * Allergy Severe burning in Verified 04/19/21 17:36 [From Rocephin] lungs prednisone Allergy Severe breathing Verified 04/19/21 17:36 problems vancomycin Allergy Severe bleeding Verified 04/19/21 17:36 from eyes and ears NSAIDS (Non-Steroidal Allergy Intermediate stomach Verified 04/19/21 17:36 Anti-Inflamma problems amoxicillin [From Augmentin] Allergy Unknown Verified 04/19/21 17:36 bee venom protein (honey bee) Allergy Anaphylaxis Verified 04/19/21 17:36 cephalexin Allergy Unknown Verified 04/19/21 17:36 ciprofloxacin Allergy abdominal Verified 04/19/21 17:36 pain ciprofloxacin HCl * Allergy abdominal Verified 04/19/21 17:36 [From Cipro] pain clavulanic acid Allergy Unknown Verified 04/19/21 17:36 [From Augmentin] piroxicam [From Feldene] Allergy Unknown Verified 04/19/21 17:36 pravastatin [From Pravachol] Allergy Unknown Verified 04/19/21 17:36 reserpine Allergy Unknown Verified 04/19/21 17:36 rosiglitazone [From Avandia] Allergy Unknown Verified 04/19/21 17:36 Review of Systems - Constitutional Constitutional: denies: Fever, Chills, Poor appetite - Eyes Eyes: denies: Pain - Ears, Nose & Throat Ears, Nose & Throat: denies: Ear pain - Cardiovascular Cariovascular: denies: Palpitations, Chest pain, Exertional dyspnea, Decr. exercise tolerance - Respiratory Respiratory: denies: Cough, Sputum production, SOB at rest, SOB with exertion - Gastrointestinal Gastrointestinal: denies: Abdominal pain, Diarrhea, Nausea, Vomiting - Genitourinary Genitourinary: denies: Dysuria - Musculoskeletal Musculoskeletal: denies: Muscle pain - Integumentary Integumentary: reports: Rash - Neurological Neurological: denies: General weakness, Focal weakness, Headache, Seizures, Incoordination, Slurred speech - Psychiatric Psychiatric: denies: Depression Exam - Vital Signs Vital Signs: Vital Signs x48h Temp Pulse Resp BP Pulse Ox 05/05/21 06:25 36.5 C 82 16 166/65 H 100 - Physical Exam General Appearance: positive: No acute distress, Alert. negative: Lethargic Eyes Bilateral: positive: Normal inspection, No lid inflammation ENT: positive: ENT inspection nml, No signs of dehydration. negative: Purulent nasal drainage Neck: positive: Nml inspection, Trachea midline. negative: Tracheal deviation Respiratory: positive: Chest non-tender, No respiratory distress. negative: Wheezes Cardiovascular: positive: Regular rate & rhythm. negative: Tachycardia, Bradycardia, Systolic murmur Peripheral Pulses: positive: 2+ Abdomen: positive: Non-tender, Nml bowel sounds, No distention. negative: Tenderness Back: positive: Nml inspection Skin: positive: Warm, Dry. negative: Cyanosis Extremities: positive: Other (pt has right BKA. left big toe is covered with xeroform, its dressing is dry and no drainage, no indication infection at surgery site on left big toe. Second toe has mild erythema and mild swelling, has well ROM.) Neurologic/Psychiatric: positive: Oriented x3, Motor nml, Sensation nml, Mood/affect nml. negative: Weakness, Sensory loss, Facial droop, Slurred/abnml speech, Depressed mood/affect Conclusion/Plan - Problem List (1) Cellulitis Conclusion/Plan: pt's left second toe appear mild erythema, and mild swelling. pt has no fever, and Hemodynamically stable. MRI of left foot on 03/28/21 at [facility] did not reveal osteomyelitis or significant concern on his left second toe. Since pt's left second toe just appear mild erythema and mild swelling, if clinically pt still does not improve after treatment, then we may consider further image study. pt has hx of many medications allergies. we will order Clindamycin and Probiotics, lab monitor, check lactic acid, and blood culture, order CBC/BMP lab monitor. Qualifiers: Site of cellulitis: extremity Site of cellulitis of extremity: lower extremity Laterality: left Qualified Code(s): L03.116 - Cellulitis of left lower limb (2) DMII (diabetes mellitus, type 2) Conclusion/Plan: pt had hx of uncontrolled diabetes and diabetes complication leading to amputation. resume home Lantus, ER already reconcile home lantus, add slide scale, hypoglycemia protocol, check A1C, check glucose ACHS, and carb control diet. 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 pt may continue followup with surgeon as out-pt, we will continue dressing change, wound care, continue consult with social services specialist for Disposition planning. (4) HTN (hypertension) Conclusion/Plan: we will resume home BP medications, and vital sign monitor (5) Chronic pain Conclusion/Plan: we will resume his home pain control regimen, pt may followup with his PCP to continue his pain management as out-pt. - Lab Results Fish Bones: 05/05/21 14:40 05/05/21 14:40
--- NOTE | 2021-05-05 14:46 | ED Physician Documentation ---
ED Addendum - Addendum Addendum: 05/05/21 14:46 Patient continues to board in the emergency department pending placement. Seen by the psychiatric social worker today. He was presented to the hospitalist to transfer to the floor given his prolonged length of stay and they are agreeable.
[2021-05-05 15:01] LABS: BASOPHILS # (AUTO) 0.1 10^3/uL (0.0-0.1); EOSINOPHILS # (AUTO) 0.3 10^3/uL (0.0-0.7); EOSINOPHILS % (AUTO) 3.6 %; HCT - HEMATOCRIT 34.1 % (42.0-52.0); HGB - HEMOGLOBIN 10.9 g/dL (14.0-18.0); LYMPHOCYTES # (AUTO) 1.4 10^3/uL (1.5-3.5); LYMPHOCYTES % (AUTO) 14.7 %; MEAN CORPUSCULAR HEMOGLOBIN 26.4 pg (27.0-31.0); MEAN CORPUSCULAR VOLUME 82.6 fL (80.0-94.0); MEAN PLATELET VOLUME 9.9 fL (7.4-11.4); MONOCYTES # (AUTO) 0.7 10^3/uL (0.0-1.0); MONOCYTES % (AUTO) 6.9 %; NEUTROPHILS # (AUTO) 6.9 10^3/uL (1.5-6.6); NEUTROPHILS % (AUTO) 73.5 %; PLT - PLATELET COUNT 326 10^3/uL (130-450); RED BLOOD COUNT 4.13 10^6/uL (4.70-6.10); RED CELL DISTRIBUTION WIDTH 15.6 % (12.0-15.0); WHITE BLOOD COUNT 9.4 x10^3/uL (4.8-10.8)
[2021-05-05 15:06] LABS: CALCIUM 9.3 mg/dL (8.5-10.3); POTASSIUM 4.6 mmol/L (3.5-5.0)
[2021-05-05 16:11] LABS: B. PARAPERTUSSIS- RESP PCR PAN NOT DETECTED; B. PERTUSSIS- RESP PCR PANEL NOT DETECTED; C. PNEUMONIAE- RESP PCR PANEL NOT DETECTED; CORONAVIRUS 229E-RESP PCR NOT DETECTED; CORONAVIRUS HKU1-RESP PCR NOT DETECTED; CORONAVIRUS NL63-RESP PCR NOT DETECTED; CORONAVIRUS OC43-RESP PCR NOT DETECTED; HUMAN METAPNEUMOVIRUS NOT DETECTED; INFLUENZA A- RESP PCR PANEL NOT DETECTED; INFLUENZA B - RESP PCR PANEL NOT DETECTED; M. PNEUMONIAE- RESP PCR PANEL NOT DETECTED; PARAINFLUENZA VIRUS 1 NOT DETECTED; PARAINFLUENZA VIRUS 2 NOT DETECTED; PARAINFLUENZA VIRUS 3 NOT DETECTED; PARAINFLUENZA VIRUS 4 NOT DETECTED; RHINOVIRUS/ENTEROVIRUS DETECTED; RSV- RESP PCR PANEL NOT DETECTED; SARS-CoV-2 -RESP PCR PANEL NOT DETECTED
[2021-05-05] MEDS: SACCHAROMYCES BOULARDII 250 MG CAPSULE PO SCH (17:23)
[2021-05-05] MEDS: CLINDAMYCIN 150 MG CAPSULE PO SCH ×2 (17:23→21:32)
[2021-05-05] MEDS: INSULIN ASPART 300 UNIT/3 ML PEN SUBQ SCH ×2 (17:24→21:12)
[2021-05-05] MEDS: oxyCODONE 5 MG TABLET PO PRN (17:48)
[2021-05-05] MEDS: SODIUM CHLORIDE 0.9% 1,000 ML IV SCH (18:07)
[2021-05-05] MEDS: INSULIN GLARGINE 300 UNIT/3 ML PEN SUBQ SCH (21:12)
[2021-05-05] MEDS: MORPHINE ER 15 MG TABLET PO PRN (21:33)
[2021-05-06] MEDS: MORPHINE ER 15 MG TABLET PO PRN ×4 (02:00→19:18)
[2021-05-06] MEDS: CYCLOBENZAPRINE 10 MG TABLET PO PRN ×3 (02:00→21:32)
[2021-05-06] MEDS: oxyCODONE 5 MG TABLET PO PRN ×4 (03:47→21:28)
[2021-05-06] MEDS: SODIUM CHLORIDE 0.9% 1,000 ML IV SCH (03:48)
[2021-05-06] MEDS: CLINDAMYCIN 150 MG CAPSULE PO SCH ×3 (05:58→21:28)
[2021-05-06] MEDS: PANTOPRAZOLE 40 MG TABLET PO SCH ×2 (05:59→16:12)
[2021-05-06] MEDS ORDERED: hydrALAZINE 25 MG TABLET PO ONE (06:15)
[2021-05-06] MEDS: hydrALAZINE 25 MG TABLET PO SCH ×3 (06:16→21:32)
[2021-05-06 07:12] LABS: BASOPHILS # (AUTO) 0.1 10^3/uL (0.0-0.1); BASOPHILS % (AUTO) 0.9 %; EOSINOPHILS # (AUTO) 0.3 10^3/uL (0.0-0.7); EOSINOPHILS % (AUTO) 3.4 %; HCT - HEMATOCRIT 32.8 % (42.0-52.0); HGB - HEMOGLOBIN 10.5 g/dL (14.0-18.0); LYMPHOCYTES # (AUTO) 1.2 10^3/uL (1.5-3.5); LYMPHOCYTES % (AUTO) 15.7 %; MEAN CORPUSCULAR HEMOGLOBIN 26.5 pg (27.0-31.0); MEAN CORPUSCULAR VOLUME 82.8 fL (80.0-94.0); MEAN PLATELET VOLUME 10.1 fL (7.4-11.4); MONOCYTES # (AUTO) 0.7 10^3/uL (0.0-1.0); MONOCYTES % (AUTO) 8.7 %; NEUTROPHILS # (AUTO) 5.4 10^3/uL (1.5-6.6); PLT - PLATELET COUNT 309 10^3/uL (130-450); RED BLOOD COUNT 3.96 10^6/uL (4.70-6.10); RED CELL DISTRIBUTION WIDTH 15.4 % (12.0-15.0); WHITE BLOOD COUNT 7.6 x10^3/uL (4.8-10.8)
[2021-05-06 07:29] LABS: CALCIUM 9.1 mg/dL (8.5-10.3); CREATININE 0.9 mg/dL (0.6-1.2); POTASSIUM 4.7 mmol/L (3.5-5.0)
[2021-05-06] MEDS: INSULIN ASPART 300 UNIT/3 ML PEN SUBQ SCH ×4 (08:27→21:29)
[2021-05-06] MEDS ORDERED: PANTOPRAZOLE 40 MG TABLET PO SCH (09:00)
[2021-05-06] MEDS ORDERED: NON FORMULARY MED (Ferrous Sulfate [Ferrous Sulfate] 325 MG Tablet.Dr) PO SCH (09:00)
[2021-05-06] MEDS ORDERED: NON FORMULARY MED (Lisinopril [Zestril] 40 MG Tablet) PO SCH (09:00)
[2021-05-06 09:04] LABS: ESTIMATED AVERAGE GLUCOSE 177 mg/dL (70-100); HEMOGLOBIN A1c% 7.8 % (4.27-6.07)
[2021-05-06] MEDS: ENOXAPARIN 40 MG/0.4 ML SYRINGE SUBQ SCH (09:23)
[2021-05-06] MEDS: lisinopriL 20 MG TABLET PO SCH (09:24)
[2021-05-06] MEDS: TAMSULOSIN 0.4 MG CAPSULE PO SCH (09:24)
[2021-05-06] MEDS: GABAPENTIN 300 MG CAPSULE PO SCH ×2 (09:24→21:27)
[2021-05-06] MEDS: amLODIPine 5 MG TABLET PO SCH (09:25)
[2021-05-06] MEDS: COD LIVER OIL/ZINC OXIDE 113 GM TUBE TOP SCH ×2 (10:29→21:33)
[2021-05-06] MEDS: MULTIVITAMIN W/MINERALS TABLET PO SCH (10:30)
[2021-05-06] MEDS: SACCHAROMYCES BOULARDII 250 MG CAPSULE PO SCH ×2 (10:30→16:12)
[2021-05-06] MEDS: polyethylene glycoL 3350 17 GM PACKET PO PRN (11:52)
--- NOTE | 2021-05-06 11:54 | PROVIDER PROGRESS NOTE ---
Subjective - Prog Note Date Prog Note Date: 05/06/21 Prog Note Time: 11:52 - Subjective Subjective: Patient is awaiting placement. He has no acute medical needs other than needing instruction in wound care for his leg. He is awaiting placement to find a formerly [facility] housing for himself since he is in a wheelchair and needs some help. Physical therapy has seen him twice in the emergency room. Other than safety issues with regards to his wheelchair use, they did not have any recommendations for formal PT needs or occupational therapy needs. Wound care has seen him once. He is getting routine wound care and patient has had a stump. He was transferred from the emergency room to [facility] on May 05 for bed management. There is no acute medical need for the patient in the hospital. Again, we are waiting him to be placed in a safe facility for discharge. He is currently getting his routine oral medications. Initially the provider who accepted the transfer from the emergency room was mistaken and thinking that this patient was an observation or inpatient. He is not. As such IV medications and routine blood draws will be discontinued. The patient himself states that he is comfortable. No new pain problems. He is afebrile. Blood pressure is consistently elevated at 161 and up to 188 systolic. Current Medications - Current Medications Current Medications: Active Medications Acetaminophen (Acetaminophen 325 Mg Tablet) 650 mg PO Q4HR PRN PRN Reason: Pain or Fever > 38C (100.4F) Last Admin: 05/04/21 14:08 Dose: 650 mg Documented by: Amlodipine Besylate (Amlodipine 5 Mg Tablet) 10 mg PO DAILY [facility] Last Admin: 05/06/21 09:25 Dose: 10 mg Documented by: Clindamycin HCl (Clindamycin 150 Mg Capsule) 300 mg PO Q8HR [facility] Last Admin: 05/06/21 05:58 Dose: 300 mg Documented by: Cyclobenzaprine HCl (Cyclobenzaprine 10 Mg Tablet) 10 mg PO TID PRN PRN Reason: Spasms Last Admin: 05/06/21 02:00 Dose: 10 mg Documented by: Enoxaparin Sodium (Enoxaparin 40 Mg/0.4 Ml Syringe) 40 mg SUBQ DAILY [facility] Last Admin: 05/06/21 09:23 Dose: 40 mg Documented by: Ferrous Sulfate (Ferrous Sulfate 325 Mg Tablet) 325 mg PO Q48H [facility] Last Admin: 12/10/21 08:52 Dose: 325 mg Documented by: Gabapentin (Gabapentin 300 Mg Capsule) 300 mg PO BID [facility] Last Admin: 05/06/21 09:24 Dose: 300 mg Documented by: Hydralazine HCl (Hydralazine 25 Mg Tablet) 100 mg PO TID [facility] Last Admin: 05/06/21 06:16 Dose: 100 mg Documented by: Insulin Aspart (Insulin Aspart 300 Unit/3 Ml Pen) 1 - 5 unit SUBQ 0800,1200,1700,2100 [facility]; Protocol Last Admin: 05/06/21 11:42 Dose: Not Given Documented by: Insulin Glargine (Insulin Glargine 300 Unit/3 Ml Pen) 18 unit SUBQ QPM [facility] Last Admin: 05/05/21 21:12 Dose: 18 unit Documented by: Lisinopril (Lisinopril 20 Mg Tablet) 40 mg PO DAILY [facility] Last Admin: 05/06/21 09:24 Dose: 40 mg Documented by: Morphine Sulfate (Morphine Er 15 Mg Tablet) 15 mg PO Q4HR PRN PRN Reason: PAIN Last Admin: 05/06/21 05:59 Dose: 15 mg Documented by: Multivitamins/Minerals (Multivitamin W/Minerals Tablet) 1 tab PO DAILYWM [facility] Last Admin: 05/06/21 10:30 Dose: 1 tab Documented by: Ondansetron HCl (Ondansetron 4 Mg/2 Ml Vial) 4 mg IVP Q6HR PRN PRN Reason: Nausea / Vomiting Oxycodone HCl (Oxycodone 5 Mg Tablet) 15 mg PO Q4HR PRN PRN Reason: PAIN Last Admin: 05/06/21 09:24 Dose: 15 mg Documented by: Pantoprazole Sodium (Pantoprazole 40 Mg Tablet) 40 mg PO BIDAC [facility] Last Admin: 05/06/21 05:59 Dose: 40 mg Documented by: Polyethylene Glycol (Polyethylene Glycol 3350 17 Gm Packet) 17 gm PO DAILY PRN PRN Reason: CONSTIPATION Last Admin: 05/04/21 03:10 Dose: 17 gm Documented by: Saccharomyces Boulardii (Saccharomyces Boulardii 250 Mg Capsule) 500 mg PO BIDWM [facility] Last Admin: 05/06/21 10:30 Dose: 500 mg Documented by: Tamsulosin HCl (Tamsulosin 0.4 Mg Capsule) 0.4 mg PO DAILY [facility] Last Admin: 05/06/21 09:24 Dose: 0.4 mg Documented by: Zinc Oxide (Cod Liver Oil/Zinc Oxide 113 Gm Tube) 1 gm TOP BID [facility] Last Admin: 05/06/21 10:29 Dose: Not Given Documented by: Acetaminophen [Tylenol] 650 mg PO Q4HR PRN 04/19/21 Amlodipine Besylate [Norvasc] 10 mg PO DAILY 04/19/21 Carisoprodol [Soma] 350 mg PO DAILY PRN 04/19/21 Ferrous Sulfate 325 mg PO DAILY 04/19/21 Gabapentin [Neurontin] 300 mg PO BID 04/19/21 Hydralazine HCl 100 mg PO TID 04/19/21 Insulin Glargine [Lantus Solostar] 15 unit SQ HS 04/19/21 Lisinopril [Zestril] 40 mg PO DAILY 04/19/21 Melatonin 3 mg PO HS 04/19/21 Morphine ER [Morphine Sulfate ER] 15 mg PO Q4HR PRN 04/19/21 Multivit with Iron,Minerals [Complete Senior] 1 each PO DAILY 04/19/21 Naloxone HCl [Narcan] 4 mg NS PRN PRN 04/19/21 Oxycodone HCl [Roxicodone] 15 mg PO Q4HR PRN 04/19/21 Pantoprazole [Protonix] 40 mg PO DAILY 04/19/21 Tamsulosin [Flomax] 0.4 mg PO DAILY 04/19/21 polyethylene glycoL 3350 [Miralax] 17 gm PO DAILY PRN 04/19/21 Objective - Vital Signs/Intake & Output Reviewed Vital Signs: Yes Vital Signs: Vital Signs x48h Temp Pulse Resp BP Pulse Ox 05/06/21 08:09 36.7 C 73 16 161/72 H 96 05/06/21 06:00 37.2 C 78 16 164/57 H 97 Intake & Output: Intake & Output 05/03/21 05/04/21 05/05/21 05/06/21 23:59 23:59 23:59 23:59 Intake Total 240 1448.333 Balance 240 1448.333 - Objective General Appearance: positive: No acute distress, Alert, Other (75-year-old white gentleman, looks older than stated age, sitting up in chair, alert, lucid) Eyes Bilateral: positive: PERRL, EOMI ENT: positive: No signs of dehydration Neck: positive: No JVD. negative: Stiff neck Respiratory: positive: No respiratory distress. negative: Wheezes, Rales, Rhonchi Cardiovascular: positive: Regular rate & rhythm, No murmur, No gallop Abdomen: positive: Non-tender, No organomegaly, Nml bowel sounds, No distention Skin: positive: Warm, Dry Extremities: positive: Full ROM, No pedal edema, Other (Right BKA stump wrapped with dressing, Left great toe partial amputation) Neurologic/Psychiatric: positive: Oriented x3, CN's nml (2-12), Motor nml - Lab Results Fish Bones: 05/06/21 06:41 05/06/21 06:41 Other Labs: Lab Results x24hrs 05/06/21 05/06/21 05/06/21 Range/Units 06:41 06:41 06:41 WBC 7.6 (4.8-10.8) x10^3/uL RBC 3.96 L (4.70-6.10) 10^6/uL Hgb 10.5 L (14.0-18.0) g/dL Hct 32.8 L (42.0-52.0) % MCV 82.8 (80.0-94.0) fL MCH 26.5 L (27.0-31.0) pg MCHC 32.0 (32.0-36.0) g/dL RDW 15.4 H (12.0-15.0) % Plt Count 309 (130-450) 10^3/uL MPV 10.1 (7.4-11.4) fL Neut # (Auto) 5.4 (1.5-6.6) 10^3/uL Lymph # (Auto) 1.2 L (1.5-3.5) 10^3/uL [place] # (Auto) 0.7 (0.0-1.0) 10^3/uL Eos # (Auto) 0.3 (0.0-0.7) 10^3/uL Baso # (Auto) 0.1 (0.0-0.1) 10^3/uL Absolute Nucleated RBC 0.00 x10^3/uL Nucleated RBC % 0.0 /100WBC Sodium 134 L (135-145) mmol/L Potassium 4.7 (3.5-5.0) mmol/L Chloride 96 L (101-111) mmol/L Carbon Dioxide 29 (21-32) mmol/L Anion Gap 9.0 (6-13) BUN 26 H (6-20) mg/dL Creatinine 0.9 (0.6-1.2) mg/dL Estimated GFR (MDRD) 83 L (>89) Glucose 110 H (70-100) mg/dL Estimat Average Glucose 177 H (70-100) mg/dL Hemoglobin A1c % 7.8 H (4.27-6.07) % Lactic Acid (0.5-2.2) mmol/L Calcium 9.1 (8.5-10.3) mg/dL Nasal Adenovirus (PCR) Nasal B. parapertussis DNA (PCR) Nasal Coronavir 229E PCR Nasal Coronavir HKU1 PCR Nasal Coronavir NL63 PCR Nasal Coronavir OC43 PCR Nasal Enterovir/Rhinovir PCR Nasal Influenza B PCR Nasal Influenza A PCR Nasal Parainfluen 1 PCR Nasal Parainfluen 2 PCR Nasal Parainfluen 3 PCR Nasal Parainfluen 4 PCR Nasal RSV (PCR) Nasal B.pertussis DNA PCR Nasal C.pneumoniae (PCR) Javi Human Metapneumo PCR Nasal M.pneumoniae (PCR) Nasal SARS-CoV-2 (PCR) 05/05/21 05/05/21 05/05/21 Range/Units 15:05 14:40 14:40 WBC (4.8-10.8) x10^3/uL RBC (4.70-6.10) 10^6/uL Hgb (14.0-18.0) g/dL Hct (42.0-52.0) % MCV (80.0-94.0) fL MCH (27.0-31.0) pg MCHC (32.0-36.0) g/dL RDW (12.0-15.0) % Plt Count (130-450) 10^3/uL MPV (7.4-11.4) fL Neut # (Auto) (1.5-6.6) 10^3/uL Lymph # (Auto) (1.5-3.5) 10^3/uL [place] # (Auto) (0.0-1.0) 10^3/uL Eos # (Auto) (0.0-0.7) 10^3/uL Baso # (Auto) (0.0-0.1) 10^3/uL Absolute Nucleated RBC x10^3/uL Nucleated RBC % /100WBC Sodium 132 L (135-145) mmol/L Potassium 4.6 (3.5-5.0) mmol/L Chloride 92 L (101-111) mmol/L Carbon Dioxide 29 (21-32) mmol/L Anion Gap 11.0 (6-13) BUN 32 H (6-20) mg/dL Creatinine 1.0 (0.6-1.2) mg/dL Estimated GFR (MDRD) 73 L (>89) Glucose 117 H (70-100) mg/dL Estimat Average Glucose (70-100) mg/dL Hemoglobin A1c % (4.27-6.07) % Lactic Acid 0.8 (0.5-2.2) mmol/L Calcium 9.3 (8.5-10.3) mg/dL Nasal Adenovirus (PCR) NOT DETECTED Nasal B. parapertussis DNA (PCR) NOT DETECTED Nasal Coronavir 229E PCR NOT DETECTED Nasal Coronavir HKU1 PCR NOT DETECTED Nasal Coronavir NL63 PCR NOT DETECTED Nasal Coronavir OC43 PCR NOT DETECTED Nasal Enterovir/Rhinovir PCR DETECTED A Nasal Influenza B PCR NOT DETECTED Nasal Influenza A PCR NOT DETECTED Nasal Parainfluen 1 PCR NOT DETECTED Nasal Parainfluen 2 PCR NOT DETECTED Nasal Parainfluen 3 PCR NOT DETECTED Nasal Parainfluen 4 PCR NOT DETECTED Nasal RSV (PCR) NOT DETECTED Nasal B.pertussis DNA PCR NOT DETECTED Nasal C.pneumoniae (PCR) NOT DETECTED Javi Human Metapneumo PCR NOT DETECTED Nasal M.pneumoniae (PCR) NOT DETECTED Nasal SARS-CoV-2 (PCR) NOT DETECTED 05/05/21 Range/Units 14:40 WBC 9.4 (4.8-10.8) x10^3/uL RBC 4.13 L (4.70-6.10) 10^6/uL Hgb 10.9 L (14.0-18.0) g/dL Hct 34.1 L (42.0-52.0) % MCV 82.6 (80.0-94.0) fL MCH 26.4 L (27.0-31.0) pg MCHC 32.0 (32.0-36.0) g/dL RDW 15.6 H (12.0-15.0) % Plt Count 326 (130-450) 10^3/uL MPV 9.9 (7.4-11.4) fL Neut # (Auto) 6.9 H (1.5-6.6) 10^3/uL Lymph # (Auto) 1.4 L (1.5-3.5) 10^3/uL [place] # (Auto) 0.7 (0.0-1.0) 10^3/uL Eos # (Auto) 0.3 (0.0-0.7) 10^3/uL Baso # (Auto) 0.1 (0.0-0.1) 10^3/uL Absolute Nucleated RBC 0.00 x10^3/uL Nucleated RBC % 0.0 /100WBC Sodium (135-145) mmol/L Potassium (3.5-5.0) mmol/L Chloride (101-111) mmol/L Carbon Dioxide (21-32) mmol/L Anion Gap (6-13) BUN (6-20) mg/dL Creatinine (0.6-1.2) mg/dL Estimated GFR (MDRD) (>89) Glucose (70-100) mg/dL Estimat Average Glucose (70-100) mg/dL Hemoglobin A1c % (4.27-6.07) % Lactic Acid (0.5-2.2) mmol/L Calcium (8.5-10.3) mg/dL Nasal Adenovirus (PCR) Nasal B. parapertussis DNA (PCR) Nasal Coronavir 229E PCR Nasal Coronavir HKU1 PCR Nasal Coronavir NL63 PCR Nasal Coronavir OC43 PCR Nasal Enterovir/Rhinovir PCR Nasal Influenza B PCR Nasal Influenza A PCR Nasal Parainfluen 1 PCR Nasal Parainfluen 2 PCR Nasal Parainfluen 3 PCR Nasal Parainfluen 4 PCR Nasal RSV (PCR) Nasal B.pertussis DNA PCR Nasal C.pneumoniae (PCR) Javi Human Metapneumo PCR Nasal M.pneumoniae (PCR) Nasal SARS-CoV-2 (PCR) ABX Reporting Has patient been on IV antibiotics over the past 48 hours?: No Assessment/Plan - Problem List (1) Cellulitis Impression: On transfer from ER: pt's left second toe appear mild erythema, and mild swelling. pt has no fever, and Hemodynamically stable. MRI of left foot on 03/28/21 at [place] did not reveal osteomyelitis or significant concern on his left second toe. Since pt's left second toe just appear mild erythema and mild swelling, if clinically pt still does not improve after treatment, then we may consider further image study. pt has hx of many medications allergies. We placed the patient on clindamycin and probiotics. Repeat lab studies showed a white cell count that is normal at 7.6. He has no fever. Lactic acid was 0.8. We will stop daily labs. We may get them once week depending on his statu s here. Qualifiers: Site of cellulitis: extremity Site of cellulitis of extremity: lower extremity Laterality: left Qualified Code(s): L03.116 - Cellulitis of left lower limb (2) DMII (diabetes mellitus, type 2) Conclusion/Plan: pt had hx of uncontrolled diabetes and diabetes complication leading to amputation. resume home Lantus, ER already reconcile home lantus, add slide scale, hypoglycemia protocol, check A1C, check glucose ACHS, and carb control diet. On review of glucose from May 03, May 04, May 05 he is relatively stable. No higher than 178 for the last 3 days. This morning he is 97, at lunch he is 138. No change in medications. 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 pt may continue followup with surgeon as out-pt, we will continue dressing change, wound care, continue consult with outreach and education social worker for Disposition planning. Physical therapy has reviewed his chart today. He was seen twice in the ER and does not have any new needs. As such she will not be getting physical therapy and we will focus on dressing changes that he can learn to do. Wound care. And we will continue to work toward discharge to a safe environment. At this time those options are: Transfer to jail facility ([facility]) with Medicaid [facility] inpatient rehab (they have no beds and as of yesterday there were 7 people ahead of him) Go home to independent transitional housing with home health in [place] (needs to be able to demonstrate ambulation and self sufficiency)[facility] voucher. He has the vouchers and now SW trying to find the hotel/house in [place]. (4) HTN (hypertension) Conclusion/Plan: we will resume home BP medications, and vital sign monitor. He is on Zestril and Norvasc with high blood pressures. Theoretically beta-blockers are contraindicated in a diabetic. Nevertheless I will add beta-lilliam to see if I can get him down to acceptable levels. (5) Chronic pain Conclusion/Plan: we will resume his home pain control regimen, pt may followup with his PCP to continue his pain management as out-pt. He states that he spends his days at the [facility], and [facility] at night. Home medications for pain are gabapentin and occasionally oxycodone. Here he has been getting extended release morphine every 4 hours. He does have a history of opioid overuse. As such I will stop the extended release and slowly tapered over the next few days. I explained to him that he can have 1 or the other but not both alternating Qualifiers: Qualified Code(s): L03.116 - Cellulitis of left lower limb
[2021-05-06] MEDS: ACETAMINOPHEN 325 MG TABLET PO PRN (21:27)
[2021-05-06] MEDS: INSULIN GLARGINE 300 UNIT/3 ML PEN SUBQ SCH (21:30)
[2021-05-07] MEDS: IBUPROFEN 400 MG TABLET PO PRN (01:10)
[2021-05-07] MEDS: MORPHINE ER 15 MG TABLET PO PRN ×5 (01:10→21:50)
[2021-05-07] MEDS: PANTOPRAZOLE 40 MG TABLET PO SCH ×2 (06:09→17:15)
[2021-05-07] MEDS: hydrALAZINE 25 MG TABLET PO SCH ×3 (06:09→21:54)
[2021-05-07] MEDS: CLINDAMYCIN 150 MG CAPSULE PO SCH ×3 (06:09→22:04)
[2021-05-07] MEDS: CYCLOBENZAPRINE 10 MG TABLET PO PRN ×2 (06:23→14:33)
[2021-05-07] MEDS: INSULIN ASPART 300 UNIT/3 ML PEN SUBQ SCH ×4 (07:41→21:57)
[2021-05-07] MEDS: MULTIVITAMIN W/MINERALS TABLET PO SCH (09:43)
[2021-05-07] MEDS: SACCHAROMYCES BOULARDII 250 MG CAPSULE PO SCH ×2 (09:43→17:15)
[2021-05-07] MEDS: COD LIVER OIL/ZINC OXIDE 113 GM TUBE TOP SCH ×2 (09:43→22:04)
[2021-05-07] MEDS: amLODIPine 5 MG TABLET PO SCH (09:43)
[2021-05-07] MEDS: lisinopriL 20 MG TABLET PO SCH (09:44)
[2021-05-07] MEDS: GABAPENTIN 300 MG CAPSULE PO SCH ×2 (09:44→21:55)
[2021-05-07] MEDS: ENOXAPARIN 40 MG/0.4 ML SYRINGE SUBQ SCH (09:44)
[2021-05-07] MEDS: TAMSULOSIN 0.4 MG CAPSULE PO SCH (09:44)
[2021-05-07] MEDS: ACETAMINOPHEN 325 MG TABLET PO PRN (10:13)
--- NOTE | 2021-05-07 18:35 | PROVIDER PROGRESS NOTE ---
Progress Note April 07, 2021. 6:32 PM Patient is continuing to await placement. He asked about outpatient work-up for bilateral shoulder pain and wondered if he can get outpatient x-rays and a shoulder injection while he was here. I explained to him that he is a border. We are merely waiting for him to be placed in a safe facility and he is not technically admitted to the hospital. While we are here to feed him, give him his medications, and teach him how to do wound dressing care, he is not in observation status or inpatient status. Medications are unchanged. We continue to supply pain medicines, and antibiotics for a left foot cellulitis. He is also on medications for GERD, pain, urinary retention. All or p.o. Temperature is 37. Pulse 68. Blood pressure 156/56. Respirations 18. 100% on room air. He is a 6 foot tall gentleman who weighs 83.9 kg in his wheelchair. Comfortable. Alert. Lucid speech patterns. Lung are clear. Regular rate and rhythm. Abdomen soft. Right BKA wrapped. Stump looks clean when wrapping and dressing is taken down. Nursing is working with him on teaching him how to do his own dressing changes. Left foot has an area of toe drainage at the great toe that was partially amputated. He is getting antibiotics for that. Minimal redness and drainage. Only in that area and nothing above that or around that. Assessment/plan patient has multiple medical problems that are not acute. We are waiting for a safe disposition for him to be sent to his facility. Physical therapy feels the patient no longer qualifies for physical therapy at a SNF. As such we are trying to discharge him to a hotel or house with vouchers from the [facility] and to be followed up by home health.
[2021-05-07] MEDS: oxyCODONE 5 MG TABLET PO PRN (19:02)
[2021-05-07] MEDS: INSULIN GLARGINE 300 UNIT/3 ML PEN SUBQ SCH (22:00)
[2021-05-08] MEDS: oxyCODONE 5 MG TABLET PO PRN ×5 (00:35→20:54)
[2021-05-08] MEDS: CYCLOBENZAPRINE 10 MG TABLET PO PRN (04:00)
[2021-05-08] MEDS: PANTOPRAZOLE 40 MG TABLET PO SCH ×2 (06:44→16:30)
[2021-05-08] MEDS: CLINDAMYCIN 150 MG CAPSULE PO SCH ×3 (06:44→20:55)
[2021-05-08] MEDS: hydrALAZINE 25 MG TABLET PO SCH ×3 (06:45→20:56)
[2021-05-08] MEDS: MORPHINE ER 15 MG TABLET PO PRN ×4 (07:06→23:54)
--- NOTE | 2021-05-08 07:51 | PROVIDER PROGRESS NOTE ---
Assessment/Plan - Problem List (1) Cellulitis Qualifiers: Site of cellulitis: extremity Site of cellulitis of extremity: toe Laterality: left Qualified Code(s): L03.032 - Cellulitis of left toe Assessment/Plan: Wound site healing well. On clindamycin 300 mg p.o. every 8 hours. Patient is able to do his own wound dressing. Awaiting placement. (2) Chronic pain Assessment/Plan: On gabapentin, morphine, oxycodone and ibuprofen p.o. 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 Sliding scale insulin. Accu-Cheks before every meal and at bedtime. (4) HTN (hypertension) Assessment/Plan: Low the pain and hydralazine p.o. - Current Meds Current Meds: Current Medications Generic Name Dose Route Start Last Admin Trade Name Freq PRN Reason Stop Dose Admin Acetaminophen 650 mg 04/20/21 12:11 05/07/21 10:13 Acetaminophen 325 Mg Tablet PO 650 mg Q4HR PRN Administration Pain or Fever > 38C (100.4F) Amlodipine Besylate 10 mg 04/20/21 13:00 05/07/21 09:43 Amlodipine 5 Mg Tablet PO 10 mg DAILY [facility] Administration Clindamycin HCl 300 mg 05/05/21 17:00 05/08/21 06:44 Clindamycin 150 Mg Capsule PO 300 mg Q8HR [facility]ET Administration Cyclobenzaprine HCl 10 mg 04/23/21 16:33 05/08/21 04:00 Cyclobenzaprine 10 Mg Tablet PO 10 mg TID PRN Administration Spasms Enoxaparin Sodium 40 mg 05/06/21 09:00 05/07/21 09:44 Enoxaparin 40 Mg/0.4 Ml Syringe SUBQ 40 mg DAILY [facility]JEET Administration Ferrous Sulfate 325 mg 04/22/21 09:00 05/05/21 08:52 Ferrous Sulfate 325 Mg Tablet PO 325 mg Q48H [facility] Administration Gabapentin 300 mg 04/20/21 13:00 05/07/21 21:55 Gabapentin 300 Mg Capsule PO 300 mg BID [facility]JEET Administration Hydralazine HCl 100 mg 04/20/21 14:00 05/08/21 06:45 Hydralazine 25 Mg Tablet PO 100 mg TID [facility]JEET Administration Ibuprofen 400 mg 05/06/21 20:27 05/07/21 01:10 Ibuprofen 400 Mg Tablet PO 400 mg Q6HR PRN Administration PAIN Insulin Aspart 1 - 5 unit 05/05/21 17:00 05/07/21 21:57 Insulin Aspart 300 Unit/3 Ml Pen SUBQ 1 unit 0800,1200,1700,2100 [facility] Administration Protocol Insulin Glargine 18 unit 04/29/21 21:00 05/07/21 22:00 Insulin Glargine 300 Unit/3 Ml Pen SUBQ 18 unit QPM [facility]JEET Administration Lisinopril 40 mg 04/20/21 13:00 05/07/21 09:44 Lisinopril 20 Mg Tablet PO 40 mg DAILY [facility] Administration Morphine Sulfate 15 mg 05/05/21 15:21 05/08/21 07:06 Morphine Er 15 Mg Tablet PO 15 mg Q4HR PRN Administration PAIN Multivitamins/Minerals 1 tab 04/21/21 08:00 05/07/21 09:43 Multivitamin W/Minerals Tablet PO 1 tab DAILYWM [facility] Administration Oxycodone HCl 15 mg 04/20/21 12:27 05/08/21 04:31 Oxycodone 5 Mg Tablet PO 15 mg Q4HR PRN Administration PAIN Pantoprazole Sodium 40 mg 04/20/21 16:00 05/08/21 06:44 Pantoprazole 40 Mg Tablet PO 40 mg BIDAC [facility] Administration Polyethylene Glycol 17 gm 04/20/21 12:19 05/06/21 11:52 Polyethylene Glycol 3350 17 Gm Packet PO 17 gm DAILY PRN Administration CONSTIPATION Saccharomyces Boulardii 500 mg 05/05/21 17:00 05/07/21 17:15 Saccharomyces Boulardii 250 Mg Capsule PO 500 mg BIDWM [facility]JE[facility] Administration Tamsulosin HCl 0.4 mg 04/20/21 13:00 05/07/21 09:44 Tamsulosin 0.4 Mg Capsule PO 0.4 mg DAILY MANJEET Administration Zinc Oxide 1 gm 04/21/21 23:45 05/07/21 22:04 Cod Liver Oil/Zinc Oxide 113 Gm Tube TOP 1 gm BID MANJEET Administration - Lab Result Fish Bone Diagrams: 05/06/21 06:41 05/06/21 06:41 Subjective - Subjective Patient Reports: Other (Patient was resting comfortably in bed at time of exam. He complained of not sleeping well last night. His shoulder pain persists. Wound site on his left big toe and second toe appears to be healing well. There is no drainage.) Objective Vital Signs: Vital Signs - 24 hr 05/07/21 05/08/21 05/08/21 21:56 00:40 06:50 Temperature 36.7 C Heart Rate [ 72 74 Brachial] Respiratory 16 Rate Blood Pressure 159/55 H 180/69 H 174/63 H [Left Brachial artery] O2 Saturation 98 Oxygen O2 Source Room air I&O (Last 24 Hrs): Intake and Output Totals x24h 05/06/21 05/07/21 05/08/21 23:59 23:59 23:59 Intake Total 3971.333 1140 240 Balance 3971.333 1140 240 General: Alert, Oriented x3, Mild distress HEENT: PERRLA, EOMI Neck: Supple, No JVD Neuro: Alert, Non Focal, Oriented Times 3 Cardiovascular: Regular rate Respiratory: Chest non-tender, No respiratory distress, Breath sounds nml Abdomen: Normal bowel sounds, Soft, No tenderness, No masses Extremities: No clubbing, No edema Skin: No rashes Comments/Notes: Wound site on left great toe and second toe appears to be healing well. There is no drainage from site. Minimal redness. - Results Results: Laboratory Results WBC 7.6 x10^3/uL (4.8-10.8) 05/06/21 06:41 RBC 3.96 10^6/uL (4.70-6.10) L 05/06/21 06:41 Hgb 10.5 g/dL (14.0-18.0) L 05/06/21 06:41 Hct 32.8 % (42.0-52.0) L 05/06/21 06:41 MCV 82.8 fL (80.0-94.0) 05/06/21 06:41 MCH 26.5 pg (27.0-31.0) L 05/06/21 06:41 MCHC 32.0 g/dL (32.0-36.0) 05/06/21 06:41 RDW 15.4 % (12.0-15.0) H 05/06/21 06:41 Plt Count 309 10^3/uL (130-450) 05/06/21 06:41 MPV 10.1 fL (7.4-11.4) 05/06/21 06:41 Neut # (Auto) 5.4 10^3/uL (1.5-6.6) 05/06/21 06:41 Lymph # (Auto) 1.2 10^3/uL (1.5-3.5) L 05/06/21 06:41 [place] # (Auto) 0.7 10^3/uL (0.0-1.0) 05/06/21 06:41 Eos # (Auto) 0.3 10^3/uL (0.0-0.7) 05/06/21 06:41 Baso # (Auto) 0.1 10^3/uL (0.0-0.1) 05/06/21 06:41 Absolute Nucleated RBC 0.00 x10^3/uL 05/06/21 06:41 Nucleated RBC % 0.0 /100WBC 05/06/21 06:41 Sodium 134 mmol/L (135-145) L 05/06/21 06:41 Potassium 4.7 mmol/L (3.5-5.0) 05/06/21 06:41 Chloride 96 mmol/L (101-111) L 05/06/21 06:41 Carbon Dioxide 29 mmol/L (21-32) 05/06/21 06:41 Anion Gap 9.0 (6-13) 05/06/21 06:41 BUN 26 mg/dL (6-20) H 05/06/21 06:41 Creatinine 0.9 mg/dL (0.6-1.2) 05/06/21 06:41 Estimated GFR (MDRD) 83 (>89) L 05/06/21 06:41 Glucose 110 mg/dL (70-100) H 05/06/21 06:41 POC Whole Bld Glucose 115 mg/dL (70 - 100) H 05/08/21 07:48 Estimat Average Glucose 177 mg/dL (70-100) H 05/06/21 06:41 Hemoglobin A1c % 7.8 % (4.27-6.07) H 05/06/21 06:41 Lactic Acid 0.8 mmol/L (0.5-2.2) 05/05/21 14:40 Calcium 9.1 mg/dL (8.5-10.3) 05/06/21 06:41 Total Bilirubin 0.5 mg/dL (0.2-1.0) 04/19/21 18:17 AST 21 IU/L (10-42) 04/19/21 18:17 ALT 23 IU/L (10-60) 04/19/21 18:17 Alkaline Phosphatase 77 IU/L (42-121) 04/19/21 18:17 Total Protein 8.3 g/dL (6.7-8.2) H 04/19/21 18:17 Albumin 4.1 g/dL (3.2-5.5) 04/19/21 18:17 Globulin 4.2 g/dL (2.1-4.2) 04/19/21 18:17 Albumin/Globulin Ratio 1.0 (1.0-2.2) 04/19/21 18:17 Lipase 25 U/L (22-51) 04/19/21 18:17 Nasal Adenovirus (PCR) NOT DETECTED 05/05/21 15:05 Nasal B. parapertussis DNA (PCR) NOT DETECTED 05/05/21 15:05 Nasal Coronavir 229E PCR NOT DETECTED 05/05/21 15:05 Nasal Coronavir HKU1 PCR NOT DETECTED 05/05/21 15:05 Nasal Coronavir NL63 PCR NOT DETECTED 05/05/21 15:05 Nasal Coronavir OC43 PCR NOT DETECTED 05/05/21 15:05 Nasal Enterovir/Rhinovir PCR DETECTED A 05/05/21 15:05 Nasal Influenza B PCR NOT DETECTED 05/05/21 15:05 Nasal Influenza A PCR NOT DETECTED 05/05/21 15:05 Nasal Parainfluen 1 PCR NOT DETECTED 05/05/21 15:05 Nasal Parainfluen 2 PCR NOT DETECTED 05/05/21 15:05 Nasal Parainfluen 3 PCR NOT DETECTED 05/05/21 15:05 Nasal Parainfluen 4 PCR NOT DETECTED 05/05/21 15:05 Nasal RSV (PCR) NOT DETECTED 05/05/21 15:05 Nasal B.pertussis DNA PCR NOT DETECTED 05/05/21 15:05 Nasal C.pneumoniae (PCR) NOT DETECTED 05/05/21 15:05 Javi Human Metapneumo PCR NOT DETECTED 05/05/21 15:05 Nasal M.pneumoniae (PCR) NOT DETECTED 05/05/21 15:05 Nasal SARS-CoV-2 (PCR) NOT DETECTED 05/05/21 15:05 Group A Strep Rapid Negative (Negative) 05/01/21 08:40 ABX Reporting Has patient been on IV antibiotics over the past 48 hours?: No
[2021-05-08] MEDS: INSULIN ASPART 300 UNIT/3 ML PEN SUBQ SCH ×4 (08:05→20:59)
[2021-05-08] MEDS: ACETAMINOPHEN 325 MG TABLET PO PRN ×3 (09:49→23:54)
[2021-05-08] MEDS: amLODIPine 5 MG TABLET PO SCH (09:52)
[2021-05-08] MEDS: SACCHAROMYCES BOULARDII 250 MG CAPSULE PO SCH ×2 (09:52→16:30)
[2021-05-08] MEDS: TAMSULOSIN 0.4 MG CAPSULE PO SCH (09:52)
[2021-05-08] MEDS: MULTIVITAMIN W/MINERALS TABLET PO SCH (09:52)
[2021-05-08] MEDS: GABAPENTIN 300 MG CAPSULE PO SCH ×2 (09:52→20:55)
[2021-05-08] MEDS: ENOXAPARIN 40 MG/0.4 ML SYRINGE SUBQ SCH (09:54)
[2021-05-08] MEDS: lisinopriL 20 MG TABLET PO SCH (09:55)
[2021-05-08] MEDS: FERROUS SULFATE 325 MG TABLET PO SCH (11:01)
[2021-05-08] MEDS: COD LIVER OIL/ZINC OXIDE 113 GM TUBE TOP SCH ×2 (11:14→20:56)
[2021-05-08] MEDS: INSULIN GLARGINE 300 UNIT/3 ML PEN SUBQ SCH (20:59)
[2021-05-09] MEDS ORDERED: SODIUM CHLORIDE FLUSH 0.9% 10 ML SYRINGE IVP PRN (02:15)
[2021-05-09] MEDS: oxyCODONE 5 MG TABLET PO PRN ×4 (03:20→18:25)
[2021-05-09] MEDS: diphenhydrAMINE 25 MG CAPSULE PO PRN (03:20)
[2021-05-09] MEDS: PANTOPRAZOLE 40 MG TABLET PO SCH ×2 (05:47→16:45)
[2021-05-09] MEDS: CYCLOBENZAPRINE 10 MG TABLET PO PRN ×3 (05:47→21:05)
[2021-05-09] MEDS: ACETAMINOPHEN 325 MG TABLET PO PRN ×3 (05:47→18:21)
[2021-05-09] MEDS: CLINDAMYCIN 150 MG CAPSULE PO SCH ×3 (05:47→21:05)
[2021-05-09] MEDS: MORPHINE ER 15 MG TABLET PO PRN ×4 (05:48→21:04)
[2021-05-09] MEDS: hydrALAZINE 25 MG TABLET PO SCH ×3 (05:48→21:05)
[2021-05-09] MEDS: TAMSULOSIN 0.4 MG CAPSULE PO SCH (08:53)
[2021-05-09] MEDS: INSULIN ASPART 300 UNIT/3 ML PEN SUBQ SCH ×4 (08:59→21:05)
[2021-05-09] MEDS: amLODIPine 5 MG TABLET PO SCH (08:59)
[2021-05-09] MEDS: SACCHAROMYCES BOULARDII 250 MG CAPSULE PO SCH ×2 (08:59→16:46)
[2021-05-09] MEDS: ENOXAPARIN 40 MG/0.4 ML SYRINGE SUBQ SCH (08:59)
[2021-05-09] MEDS: MULTIVITAMIN W/MINERALS TABLET PO SCH (08:59)
[2021-05-09] MEDS: GABAPENTIN 300 MG CAPSULE PO SCH ×2 (09:00→21:04)
[2021-05-09] MEDS: SODIUM CHLORIDE FLUSH 0.9% 10 ML SYRINGE IVP SCH ×2 (09:00→16:46)
[2021-05-09] MEDS: IBUPROFEN 400 MG TABLET PO PRN ×2 (09:00→21:05)
[2021-05-09] MEDS: lisinopriL 20 MG TABLET PO SCH (09:00)
[2021-05-09] MEDS: COD LIVER OIL/ZINC OXIDE 113 GM TUBE TOP SCH ×2 (12:54→21:06)
--- NOTE | 2021-05-09 13:26 | PROVIDER PROGRESS NOTE ---
Assessment/Plan - Problem List (1) Cellulitis Qualifiers: Site of cellulitis: extremity Site of cellulitis of extremity: toe Laterality: left Qualified Code(s): L03.032 - Cellulitis of left toe Assessment/Plan: 05/09 improved, swelling is significantly reduced, erythema also reduced. continue antibiotics and probiotics. continue wound care for first toe. pt had amputation on left first toe recently. the surgery site appear no infection but need dressing change. pt's left second toe appear mild erythema, and mild swelling. pt has no fever, and Hemodynamically stable. MRI of left foot on 03/28/21 at [facility] did not reveal osteomyelitis or significant concern on his left second toe. Since pt's left second toe just appear mild erythema and mild swelling, if clinically pt still does not improve after treatment, then we may consider further image study. pt has hx of many medications allergies. we will order Clindamycin and Probiotics, lab monitor, check lactic acid, and blood culture, order CBC/BMP lab monitor. (2) DMII (diabetes mellitus, type 2) Conclusion/Plan: 05/09, glucose is slight elevated, will increase slide scale, continue glucose check and Hypoglycemia protocol pt had hx of uncontrolled diabetes and diabetes complication leading to amputation. resume home Lantus, ER already reconcile home lantus, add slide scale, hypoglycemia protocol, check A1C, check glucose ACHS, and carb control diet. (3) Mobility impaired Conclusion/Plan: 1214, We will continue consult with social work for discharge planning. 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 pt may continue followup with surgeon as out-pt, we will continue dressing change, wound care, continue consult with social worker delinquency prevention for Disposition planning. (4) HTN (hypertension) Conclusion/Plan: we will resume home BP medications, and vital sign monitor (5) Chronic pain Conclusion/Plan: we will resume his home pain control regimen, pt may followup with his PCP to continue his pain management as out-pt. 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 - Current Meds Current Meds: Current Medications Generic Name Dose Route Start Last Admin Trade Name Freq PRN Reason Stop Dose Admin Acetaminophen 650 mg 04/20/21 12:11 05/09/21 12:53 Acetaminophen 325 Mg Tablet PO 650 mg Q4HR PRN Administration Pain or Fever > 38C (100.4F) Amlodipine Besylate 10 mg 04/20/21 13:00 05/09/21 08:59 Amlodipine 5 Mg Tablet PO 10 mg DAILY [facility]JE[facility] Administration Clindamycin HCl 300 mg 05/05/21 17:00 05/09/21 05:47 Clindamycin 150 Mg Capsule PO 300 mg Q8HR [facility]JEET Administration Cyclobenzaprine HCl 10 mg 04/23/21 16:33 05/09/21 05:47 Cyclobenzaprine 10 Mg Tablet PO 10 mg TID PRN Administration Spasms Diphenhydramine HCl 25 mg 05/08/21 17:31 05/09/21 03:20 Diphenhydramine 25 Mg Capsule PO 25 mg QPM PRN Administration Insomnia Enoxaparin Sodium 40 mg 05/06/21 09:00 05/09/21 08:59 Enoxaparin 40 Mg/0.4 Ml Syringe SUBQ 40 mg DAILY [facility]JEET Administration Ferrous Sulfate 325 mg 04/22/21 09:00 05/08/21 11:01 Ferrous Sulfate 325 Mg Tablet PO 325 mg Q48H [facility]JEET Administration Gabapentin 300 mg 04/20/21 13:00 05/09/21 09:00 Gabapentin 300 Mg Capsule PO 300 mg BID [facility]JEET Administration Hydralazine HCl 100 mg 04/20/21 14:00 05/09/21 05:48 Hydralazine 25 Mg Tablet PO 100 mg TID MANJEET Administration Ibuprofen 400 mg 05/06/21 20:27 05/09/21 09:00 Ibuprofen 400 Mg Tablet PO 400 mg Q6HR PRN Administration PAIN Insulin Aspart 1 - 5 unit 05/05/21 17:00 05/09/21 12:52 Insulin Aspart 300 Unit/3 Ml Pen SUBQ 1 unit 0800,1200,1700,2100 [facility] Administration Protocol Insulin Glargine 18 unit 04/29/21 21:00 05/08/21 20:59 Insulin Glargine 300 Unit/3 Ml Pen SUBQ 18 unit QPM [facility]JEET Administration Lisinopril 40 mg 04/20/21 13:00 05/09/21 09:00 Lisinopril 20 Mg Tablet PO 40 mg DAILY [facility]JE[facility] Administration Morphine Sulfate 15 mg 05/05/21 15:21 05/09/21 12:53 Morphine Er 15 Mg Tablet PO 15 mg Q4HR PRN Administration PAIN Multivitamins/Minerals 1 tab 04/21/21 08:00 05/09/21 08:59 Multivitamin W/Minerals Tablet PO 1 tab DAILYWM [facility] Administration Oxycodone HCl 15 mg 04/20/21 12:27 05/09/21 09:01 Oxycodone 5 Mg Tablet PO 15 mg Q4HR PRN Administration PAIN Pantoprazole Sodium 40 mg 04/20/21 16:00 05/09/21 05:47 Pantoprazole 40 Mg Tablet PO 40 mg BIDAC [facility]JE[facility] Administration Polyethylene Glycol 17 gm 04/20/21 12:19 05/06/21 11:52 Polyethylene Glycol 3350 17 Gm Packet PO 17 gm DAILY PRN Administration CONSTIPATION Saccharomyces Boulardii 500 mg 05/05/21 17:00 05/09/21 08:59 Saccharomyces Boulardii 250 Mg Capsule PO 500 mg BIDWM [facility]JE[facility] Administration Sodium Chloride 10 ml 05/09/21 09:00 05/09/21 09:00 Sodium Chloride Flush 0.9% 10 Ml Syringe IVP 10 ml 0100,0900,1700 [facility]JE[facility] Administration Tamsulosin HCl 0.4 mg 04/20/21 13:00 05/09/21 08:53 Tamsulosin 0.4 Mg Capsule PO Not Given DAILY [facility]JEET Zinc Oxide 1 gm 04/21/21 23:45 05/09/21 12:54 Cod Liver Oil/Zinc Oxide 113 Gm Tube TOP Not Given BID MANJEET - Lab Result Fish Bone Diagrams: 05/06/21 06:41 05/06/21 06:41 - Additional Planning My Orders: My Active Orders 05/09/21 02:15 Sodium Chloride Flush 0.9% [Normal Saline Flush 0.9%] 10 ml IVP PRN PRN 05/09/21 09:00 Sodium Chloride Flush 0.9% [Normal Saline Flush 0.9%] 10 ml IVP 0100,0900,1700 Subjective - Subjective Patient Reports: Resting Comfortably Objective Vital Signs: Vital Signs - 24 hr 05/08/21 05/08/21 05/09/21 16:05 23:44 07:51 Temperature 36.7 C 37 C Heart Rate [ 81 75 73 Brachial] Respiratory 16 16 Rate Blood Pressure 176/64 H 150/60 H 169/61 H [Left Brachial artery] O2 Saturation 98 97 Oxygen O2 Source Room air I&O (Last 24 Hrs): Intake and Output Totals x24h 05/07/21 05/08/21 05/09/21 23:59 23:59 23:59 Intake Total 1140 1900 540 Balance 1140 1900 540 General: Alert, Oriented x3, No acute distress HEENT: Atraumatic Neck: Supple Lymphatic: no adenopathy Neuro: Alert, Non Focal, Oriented Times 3 Cardiovascular: Regular rate, Normal S1, Normal S2 Respiratory: Chest non-tender, No respiratory distress Abdomen: Normal bowel sounds, Soft - Results Results: Laboratory Results WBC 7.6 x10^3/uL (4.8-10.8) 05/06/21 06:41 RBC 3.96 10^6/uL (4.70-6.10) L 05/06/21 06:41 Hgb 10.5 g/dL (14.0-18.0) L 05/06/21 06:41 Hct 32.8 % (42.0-52.0) L 05/06/21 06:41 MCV 82.8 fL (80.0-94.0) 05/06/21 06:41 MCH 26.5 pg (27.0-31.0) L 05/06/21 06:41 MCHC 32.0 g/dL (32.0-36.0) 05/06/21 06:41 RDW 15.4 % (12.0-15.0) H 05/06/21 06:41 Plt Count 309 10^3/uL (130-450) 05/06/21 06:41 MPV 10.1 fL (7.4-11.4) 05/06/21 06:41 Neut # (Auto) 5.4 10^3/uL (1.5-6.6) 05/06/21 06:41 Lymph # (Auto) 1.2 10^3/uL (1.5-3.5) L 05/06/21 06:41 [place] # (Auto) 0.7 10^3/uL (0.0-1.0) 05/06/21 06:41 Eos # (Auto) 0.3 10^3/uL (0.0-0.7) 05/06/21 06:41 Baso # (Auto) 0.1 10^3/uL (0.0-0.1) 05/06/21 06:41 Absolute Nucleated RBC 0.00 x10^3/uL 05/06/21 06:41 Nucleated RBC % 0.0 /100WBC 05/06/21 06:41 Sodium 134 mmol/L (135-145) L 05/06/21 06:41 Potassium 4.7 mmol/L (3.5-5.0) 05/06/21 06:41 Chloride 96 mmol/L (101-111) L 05/06/21 06:41 Carbon Dioxide 29 mmol/L (21-32) 05/06/21 06:41 Anion Gap 9.0 (6-13) 05/06/21 06:41 BUN 26 mg/dL (6-20) H 05/06/21 06:41 Creatinine 0.9 mg/dL (0.6-1.2) 05/06/21 06:41 Estimated GFR (MDRD) 83 (>89) L 05/06/21 06:41 Glucose 110 mg/dL (70-100) H 05/06/21 06:41 POC Whole Bld Glucose 156 mg/dL (70 - 100) H 05/09/21 10:56 Estimat Average Glucose 177 mg/dL (70-100) H 05/06/21 06:41 Hemoglobin A1c % 7.8 % (4.27-6.07) H 05/06/21 06:41 Lactic Acid 0.8 mmol/L (0.5-2.2) 05/05/21 14:40 Calcium 9.1 mg/dL (8.5-10.3) 05/06/21 06:41 Total Bilirubin 0.5 mg/dL (0.2-1.0) 04/19/21 18:17 AST 21 IU/L (10-42) 04/19/21 18:17 ALT 23 IU/L (10-60) 04/19/21 18:17 Alkaline Phosphatase 77 IU/L (42-121) 04/19/21 18:17 Total Protein 8.3 g/dL (6.7-8.2) H 04/19/21 18:17 Albumin 4.1 g/dL (3.2-5.5) 04/19/21 18:17 Globulin 4.2 g/dL (2.1-4.2) 04/19/21 18:17 Albumin/Globulin Ratio 1.0 (1.0-2.2) 04/19/21 18:17 Lipase 25 U/L (22-51) 04/19/21 18:17 Nasal Adenovirus (PCR) NOT DETECTED 05/05/21 15:05 Nasal B. parapertussis DNA (PCR) NOT DETECTED 05/05/21 15:05 Nasal Coronavir 229E PCR NOT DETECTED 05/05/21 15:05 Nasal Coronavir HKU1 PCR NOT DETECTED 05/05/21 15:05 Nasal Coronavir NL63 PCR NOT DETECTED 05/05/21 15:05 Nasal Coronavir OC43 PCR NOT DETECTED 05/05/21 15:05 Nasal Enterovir/Rhinovir PCR DETECTED A 05/05/21 15:05 Nasal Influenza B PCR NOT DETECTED 05/05/21 15:05 Nasal Influenza A PCR NOT DETECTED 05/05/21 15:05 Nasal Parainfluen 1 PCR NOT DETECTED 05/05/21 15:05 Nasal Parainfluen 2 PCR NOT DETECTED 05/05/21 15:05 Nasal Parainfluen 3 PCR NOT DETECTED 05/05/21 15:05 Nasal Parainfluen 4 PCR NOT DETECTED 05/05/21 15:05 Nasal RSV (PCR) NOT DETECTED 05/05/21 15:05 Nasal B.pertussis DNA PCR NOT DETECTED 05/05/21 15:05 Nasal C.pneumoniae (PCR) NOT DETECTED 05/05/21 15:05 Javi Human Metapneumo PCR NOT DETECTED 05/05/21 15:05 Nasal M.pneumoniae (PCR) NOT DETECTED 05/05/21 15:05 Nasal SARS-CoV-2 (PCR) NOT DETECTED 05/05/21 15:05 Group A Strep Rapid Negative (Negative) 05/01/21 08:40 ABX Reporting Has patient been on IV antibiotics over the past 48 hours?: Yes Current Medications - Current Medications Current Medications: Active Medications Acetaminophen (Acetaminophen 325 Mg Tablet) 650 mg PO Q4HR PRN PRN Reason: Pain or Fever > 38C (100.4F) Last Admin: 05/09/21 12:53 Dose: 650 mg Documented by: Amlodipine Besylate (Amlodipine 5 Mg Tablet) 10 mg PO DAILY [facility] Last Admin: 05/09/21 08:59 Dose: 10 mg Documented by: Clindamycin HCl (Clindamycin 150 Mg Capsule) 300 mg PO Q8HR [facility] Last Admin: 05/09/21 05:47 Dose: 300 mg Documented by: Cyclobenzaprine HCl (Cyclobenzaprine 10 Mg Tablet) 10 mg PO TID PRN PRN Reason: Spasms Last Admin: 05/09/21 05:47 Dose: 10 mg Documented by: Diphenhydramine HCl (Diphenhydramine 25 Mg Capsule) 25 mg PO QPM PRN PRN Reason: Insomnia Last Admin: 05/09/21 03:20 Dose: 25 mg Documented by: Enoxaparin Sodium (Enoxaparin 40 Mg/0.4 Ml Syringe) 40 mg SUBQ DAILY [facility] Last Admin: 05/09/21 08:59 Dose: 40 mg Documented by: Ferrous Sulfate (Ferrous Sulfate 325 Mg Tablet) 325 mg PO Q48H [facility] Last Admin: 05/08/21 11:01 Dose: 325 mg Documented by: Gabapentin (Gabapentin 300 Mg Capsule) 300 mg PO BID [facility] Last Admin: 05/09/21 09:00 Dose: 300 mg Documented by: Hydralazine HCl (Hydralazine 25 Mg Tablet) 100 mg PO TID [facility] Last Admin: 05/09/21 05:48 Dose: 100 mg Documented by: Ibuprofen (Ibuprofen 400 Mg Tablet) 400 mg PO Q6HR PRN PRN Reason: PAIN Last Admin: 05/09/21 09:00 Dose: 400 mg Documented by: Insulin Aspart (Insulin Aspart 300 Unit/3 Ml Pen) 2 - 10 unit SUBQ 0800,1200,1700,2100 [facility]; Protocol Insulin Glargine (Insulin Glargine 300 Unit/3 Ml Pen) 18 unit SUBQ QPM [facility] Last Admin: 05/08/21 20:59 Dose: 18 unit Documented by: Lisinopril (Lisinopril 20 Mg Tablet) 40 mg PO DAILY [facility] Last Admin: 05/09/21 09:00 Dose: 40 mg Documented by: Morphine Sulfate (Morphine Er 15 Mg Tablet) 15 mg PO Q4HR PRN PRN Reason: PAIN Last Admin: 05/09/21 12:53 Dose: 15 mg Documented by: Multivitamins/Minerals (Multivitamin W/Minerals Tablet) 1 tab PO DAILYWM [facility] Last Admin: 05/09/21 08:59 Dose: 1 tab Documented by: Ondansetron HCl (Ondansetron 4 Mg/2 Ml Vial) 4 mg IVP Q6HR PRN PRN Reason: Nausea / Vomiting Oxycodone HCl (Oxycodone 5 Mg Tablet) 15 mg PO Q4HR PRN PRN Reason: PAIN Last Admin: 05/09/21 09:01 Dose: 15 mg Documented by: Pantoprazole Sodium (Pantoprazole 40 Mg Tablet) 40 mg PO BIDAC [facility] Last Admin: 05/09/21 05:47 Dose: 40 mg Documented by: Polyethylene Glycol (Polyethylene Glycol 3350 17 Gm Packet) 17 gm PO DAILY PRN PRN Reason: CONSTIPATION Last Admin: 05/06/21 11:52 Dose: 17 gm Documented by: Saccharomyces Boulardii (Saccharomyces Boulardii 250 Mg Capsule) 500 mg PO BIDWM [facility] Last Admin: 05/09/21 08:59 Dose: 500 mg Documented by: Sodium Chloride (Sodium Chloride Flush 0.9% 10 Ml Syringe) 10 ml IVP 0100,0900,1700 [facility] Last Admin: 05/09/21 09:00 Dose: 10 ml Documented by: Sodium Chloride (Sodium Chloride Flush 0.9% 10 Ml Syringe) 10 ml IVP PRN PRN PRN Reason: Per Line Care protocol Tamsulosin HCl (Tamsulosin 0.4 Mg Capsule) 0.4 mg PO DAILY [facility] Last Admin: 05/09/21 08:53 Dose: Not Given Documented by: Zinc Oxide (Cod Liver Oil/Zinc Oxide 113 Gm Tube) 1 gm TOP BID [facility] Last Admin: 05/09/21 12:54 Dose: Not Given Documented by: Acetaminophen [Tylenol] 650 mg PO Q4HR PRN 04/19/21 Amlodipine Besylate [Norvasc] 10 mg PO DAILY 04/19/21 Carisoprodol [Soma] 350 mg PO DAILY PRN 04/19/21 Ferrous Sulfate 325 mg PO DAILY 04/19/21 Gabapentin [Neurontin] 300 mg PO BID 04/19/21 Hydralazine HCl 100 mg PO TID 04/19/21 Insulin Glargine [Lantus Solostar] 15 unit SQ HS 04/19/21 Lisinopril [Zestril] 40 mg PO DAILY 04/19/21 Melatonin 3 mg PO HS 04/19/21 Morphine ER [Morphine Sulfate ER] 15 mg PO Q4HR PRN 04/19/21 Multivit with Iron,Minerals [Complete Senior] 1 each PO DAILY 04/19/21 Naloxone HCl [Narcan] 4 mg NS PRN PRN 04/19/21 Oxycodone HCl [Roxicodone] 15 mg PO Q4HR PRN 04/19/21 Pantoprazole [Protonix] 40 mg PO DAILY 04/19/21 Tamsulosin [Flomax] 0.4 mg PO DAILY 04/19/21 polyethylene glycoL 3350 [Miralax] 17 gm PO DAILY PRN 04/19/21
[2021-05-09] MEDS: polyethylene glycoL 3350 17 GM PACKET PO PRN (16:46)
[2021-05-09] MEDS: INSULIN GLARGINE 300 UNIT/3 ML PEN SUBQ SCH (21:06)
[2021-05-10] MEDS: oxyCODONE 5 MG TABLET PO PRN ×4 (00:24→18:17)
[2021-05-10] MEDS: ACETAMINOPHEN 325 MG TABLET PO PRN ×4 (00:29→21:45)
[2021-05-10] MEDS: SODIUM CHLORIDE FLUSH 0.9% 10 ML SYRINGE IVP SCH ×3 (00:30→17:14)
[2021-05-10] MEDS: diphenhydrAMINE 25 MG CAPSULE PO PRN ×2 (00:36→21:51)
[2021-05-10] MEDS: CYCLOBENZAPRINE 10 MG TABLET PO PRN ×2 (00:37→21:51)
[2021-05-10] MEDS: MORPHINE ER 15 MG TABLET PO PRN ×4 (03:39→20:47)
[2021-05-10] MEDS: IBUPROFEN 400 MG TABLET PO PRN ×3 (03:40→18:17)
[2021-05-10] MEDS: hydrALAZINE 25 MG TABLET PO SCH ×3 (06:57→21:50)
[2021-05-10] MEDS: PANTOPRAZOLE 40 MG TABLET PO SCH ×2 (06:58→16:35)
[2021-05-10] MEDS: CLINDAMYCIN 150 MG CAPSULE PO SCH ×3 (06:58→21:44)
[2021-05-10] MEDS: INSULIN ASPART 300 UNIT/3 ML PEN SUBQ SCH ×4 (07:53→21:42)
--- NOTE | 2021-05-10 08:25 | XRAY Report ---
PROCEDURE: Foot 2 View LT INDICATIONS: second toe infection, pt is diabetes TECHNIQUE: 2 views of the foot were acquired. COMPARISON: None. FINDINGS: Bones: First digit distal phalanx partial resection. No osseous erosion is identified. There is oste ophytosis in the mid foot. Interphalangeal joint space narrowing. Small plantar calcaneal spur. No fr actures or dislocations. No suspicious bony lesions. Soft tissues: No tibiotalar joint effusion. Achilles tendon appears normal. IMPRESSION: No osseous erosion is identified. First digit distal phalanx partial resection. If high suspicion for osteomyelitis consider three-phase bone scan or MRI. Reviewed by: Santos Salcedo MD on 05/10/2021 8:24 AM [facility] Approved by: Santos Salcedo MD on 05/10/2021 8:24 AM [facility] Station ID: [id number]
[2021-05-10] MEDS: FERROUS SULFATE 325 MG TABLET PO SCH (09:32)
[2021-05-10] MEDS: GABAPENTIN 300 MG CAPSULE PO SCH ×2 (09:32→20:47)
[2021-05-10] MEDS: ENOXAPARIN 40 MG/0.4 ML SYRINGE SUBQ SCH (09:32)
[2021-05-10] MEDS: SACCHAROMYCES BOULARDII 250 MG CAPSULE PO SCH ×2 (09:32→17:13)
[2021-05-10] MEDS: amLODIPine 5 MG TABLET PO SCH (09:32)
[2021-05-10] MEDS: COD LIVER OIL/ZINC OXIDE 113 GM TUBE TOP SCH ×2 (09:32→21:42)
[2021-05-10] MEDS: TAMSULOSIN 0.4 MG CAPSULE PO SCH (09:32)
[2021-05-10] MEDS: lisinopriL 20 MG TABLET PO SCH (09:32)
[2021-05-10] MEDS: MULTIVITAMIN W/MINERALS TABLET PO SCH (10:48)
--- NOTE | 2021-05-10 14:35 | PROVIDER PROGRESS NOTE ---
Assessment/Plan - Problem List (1) Cellulitis Qualifiers: Site of cellulitis: extremity Site of cellulitis of extremity: toe Laterality: left Qualified Code(s): L03.032 - Cellulitis of left toe Assessment/Plan: 05/10 stable. pt had Xray of his left foot which showed no osseous erosion is identified, no suspicious bony lesion. pt is happy about the image study result. continue finish antibiotics treatment course. since pt had hx of uncontrolled diabetes foot infection and amputation from infection, expected pt had two weeks antibiotics treatment to control his infection, and continue probiotics as well. 05/09 improved, swelling is significantly reduced, erythema also reduced. contin ue antibiotics and probiotics. continue wound care for first toe. pt had amputation on left first toe recently. the surgery site appear no infection but need dressing change. pt's left second toe appear mild erythema, and mild swelling. pt has no fever, and Hemodynamically stable. MRI of left foot on 03/28/21 at [place] did not reveal osteomyelitis or significant concern on his left second toe. Since pt's left second toe just appear mild erythema and mild swelling, if clinically pt still does not improve after treatment, then we may consider further image study. pt has hx of many medications allergies. we will order Clindamycin and Probiotics, lab monitor, check lactic acid, and blood culture, order CBC/BMP lab monitor. (2) DMII (diabetes mellitus, type 2) Conclusion/Plan: 05/10 good control glucose level, continue current slide scale, continue glucose check and Hypoglycemia protocol 05/09, glucose is slight elevated, will increase slide scale, continue glucose check and Hypoglycemia protocol pt had hx of uncontrolled diabetes and diabetes complication leading to amputation. resume home Lantus, ER already reconcile home lantus, add slide scale, hypoglycemia protocol, check A1C, check glucose ACHS, and carb control diet. (3) Mobility impaired Conclusion/Plan: 05/09, We will continue consult with social work for discharge planning. 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 pt may continue followup with surgeon as out-pt, we will continue d ressing change, wound care, continue consult with director social for Disposition planning. (4) HTN (hypertension) Conclusion/Plan: we will resume home BP medications, and vital sign monitor (5) Chronic pain Conclusion/Plan: we will resume his home pain control regimen, pt may followup with his PCP to continue his pain management as out-pt. (2) DMII (diabetes mellitus, type 2) Qualifiers: Diabetes mellitus skilled nursing insulin use: with skilled nursing use Diabetes mellitus complication status: with skin complications Diabetes mellitus complication detail: with other skin complication Qualified Code(s): E11.628 - Type 2 diabetes mellitus with other skin complications; Z79.4 - long-term (cur rent) use of insulin - Current Meds Current Meds: Current Medications Generic Name Dose Route Start Last Admin Trade Name Freq PRN Reason Stop Dose Admin Acetaminophen 650 mg 04/20/21 12:11 05/10/21 09:34 Acetaminophen 325 Mg Tablet PO 650 mg Q4HR PRN Administration Pain or Fever > 38C (100.4F) Amlodipine Besylate 10 mg 04/20/21 13:00 05/10/21 09:32 Amlodipine 5 Mg Tablet PO 10 mg DAILY [facility] Administration Clindamycin HCl 300 mg 05/05/21 17:00 05/10/21 13:58 Clindamycin 150 Mg Capsule PO 300 mg Q8HR [facility] Administration Cyclobenzaprine HCl 10 mg 04/23/21 16:33 05/10/21 00:37 Cyclobenzaprine 10 Mg Tablet PO 10 mg TID PRN Administration Spasms Diphenhydramine HCl 25 mg 05/08/21 17:31 05/10/21 00:36 Diphenhydramine 25 Mg Capsule PO 25 mg QPM PRN Administration Insomnia Enoxaparin Sodium 40 mg 05/06/21 09:00 05/10/21 09:32 Enoxaparin 40 Mg/0.4 Ml Syringe SUBQ 40 mg DAILY [facility] Administration Ferrous Sulfate 325 mg 04/22/21 09:00 05/10/21 09:32 Ferrous Sulfate 325 Mg Tablet PO 325 mg Q48H [facility] Administration Gabapentin 300 mg 04/20/21 13:00 05/10/21 09:32 Gabapentin 300 Mg Capsule PO 300 mg BID [facility] Administration Hydralazine HCl 100 mg 04/20/21 14:00 05/10/21 13:57 Hydralazine 25 Mg Tablet PO 100 mg TID [facility] Administration Ibuprofen 400 mg 05/06/21 20:27 05/10/21 09:33 Ibuprofen 400 Mg Tablet PO 400 mg Q6HR PRN Administration PAIN Insulin Aspart 2 - 10 unit 05/09/21 17:00 05/10/21 11:40 Insulin Aspart 300 Unit/3 Ml Pen SUBQ Not Given 0800,1200,1700,2100 [facility] Protocol Insulin Glargine 18 unit 04/29/21 21:00 05/09/21 21:06 Insulin Glargine 300 Unit/3 Ml Pen SUBQ 18 unit QPM [facility] Administration Lisinopril 40 mg 04/20/21 13:00 05/10/21 09:32 Lisinopril 20 Mg Tablet PO 40 mg DAILY [facility] Administration Morphine Sulfate 15 mg 05/05/21 15:21 05/10/21 09:33 Morphine Er 15 Mg Tablet PO 15 mg Q4HR PRN Administration PAIN Multivitamins/Minerals 1 tab 04/21/21 08:00 05/10/21 10:48 Multivitamin W/Minerals Tablet PO 1 tab DAILYWM [facility] Administration Oxycodone HCl 15 mg 04/20/21 12:27 05/10/21 13:59 Oxycodone 5 Mg Tablet PO 15 mg Q4HR PRN Administration PAIN Pantoprazole Sodium 40 mg 04/20/21 16:00 05/10/21 06:58 Pantoprazole 40 Mg Tablet PO 40 mg BIDAC [facility] Administration Polyethylene Glycol 17 gm 04/20/21 12:19 05/09/21 16:46 Polyethylene Glycol 3350 17 Gm Packet PO 17 gm DAILY PRN Administration CONSTIPATION Saccharomyces Boulardii 500 mg 05/05/21 17:00 05/10/21 09:32 Saccharomyces Boulardii 250 Mg Capsule PO 500 mg BIDWM [facility] Administration Sodium Chloride 10 ml 05/09/21 09:00 05/10/21 09:32 Sodium Chloride Flush 0.9% 10 Ml Syringe IVP 10 ml 0100,0900,1700 [facility] Administration Tamsulosin HCl 0.4 mg 04/20/21 13:00 05/10/21 09:32 Tamsulosin 0.4 Mg Capsule PO Not Given DAILY [facility] Zinc Oxide 1 gm 04/21/21 23:45 05/10/21 09:32 Cod Liver Oil/Zinc Oxide 113 Gm Tube TOP Not Given BID [facility] - Lab Result Fish Bone Diagrams: 05/06/21 06:41 05/06/21 06:41 - Additional Planning My Orders: My Active Orders 05/09/21 17:00 Insulin Aspart [NovoLOG] 2 - 10 unit SUBQ 0800,1200,1700,2100 Subjective - Subjective Patient Reports: Feeling Better, Resting Comfortably Objective Vital Signs: Vital Signs - 24 hr 05/09/21 05/10/21 21:07 07:48 Temperature 36.6 C Heart Rate [ 77 64 Brachial] Respiratory 16 Rate Blood Pressure 162/68 H 161/62 H [Left Brachial artery] O2 Saturation 97 Oxygen O2 Source Room air I&O (Last 24 Hrs): Intake and Output Totals x24h 05/08/21 05/09/21 05/10/21 23:59 23:59 23:59 Intake Total 1900 1820 960 Balance 1900 1820 960 General: Alert, Oriented x3, Cooperative, No acute distress HEENT: Atraumatic Neck: Supple Lymphatic: no adenopathy Neuro: Alert, Non Focal, Oriented Times 3 Cardiovascular: Regular rate, Normal S1, Normal S2 Respiratory: Chest non-tender, No respiratory distress Abdomen: Normal bowel sounds, Soft, No tenderness Extremities: Other (left second toe has slight erythema, improved from previous, and swelling is nearly resolved.) - Results Results: Laboratory Results WBC 7.6 x10^3/uL (4.8-10.8) 05/06/21 06:41 RBC 3.96 10^6/uL (4.70-6.10) L 05/06/21 06:41 Hgb 10.5 g/dL (14.0-18.0) L 05/06/21 06:41 Hct 32.8 % (42.0-52.0) L 05/06/21 06:41 MCV 82.8 fL (80.0-94.0) 05/06/21 06:41 MCH 26.5 pg (27.0-31.0) L 05/06/21 06:41 MCHC 32.0 g/dL (32.0-36.0) 05/06/21 06:41 RDW 15.4 % (12.0-15.0) H 05/06/21 06:41 Plt Count 309 10^3/uL (130-450) 05/06/21 06:41 MPV 10.1 fL (7.4-11.4) 05/06/21 06:41 Neut # (Auto) 5.4 10^3/uL (1.5-6.6) 05/06/21 06:41 Lymph # (Auto) 1.2 10^3/uL (1.5-3.5) L 05/06/21 06:41 [place] # (Auto) 0.7 10^3/uL (0.0-1.0) 05/06/21 06:41 Eos # (Auto) 0.3 10^3/uL (0.0-0.7) 05/06/21 06:41 Baso # (Auto) 0.1 10^3/uL (0.0-0.1) 05/06/21 06:41 Absolute Nucleated RBC 0.00 x10^3/uL 05/06/21 06:41 Nucleated RBC % 0.0 /100WBC 05/06/21 06:41 Sodium 134 mmol/L (135-145) L 05/06/21 06:41 Potassium 4.7 mmol/L (3.5-5.0) 05/06/21 06:41 Chloride 96 mmol/L (101-111) L 05/06/21 06:41 Carbon Dioxide 29 mmol/L (21-32) 05/06/21 06:41 Anion Gap 9.0 (6-13) 05/06/21 06:41 BUN 26 mg/dL (6-20) H 05/06/21 06:41 Creatinine 0.9 mg/dL (0.6-1.2) 05/06/21 06:41 Estimated GFR (MDRD) 83 (>89) L 05/06/21 06:41 Glucose 110 mg/dL (70-100) H 05/06/21 06:41 POC Whole Bld Glucose 134 mg/dL (70 - 100) H 05/10/21 11:03 Estimat Average Glucose 177 mg/dL (70-100) H 05/06/21 06:41 Hemoglobin A1c % 7.8 % (4.27-6.07) H 05/06/21 06:41 Lactic Acid 0.8 mmol/L (0.5-2.2) 05/05/21 14:40 Calcium 9.1 mg/dL (8.5-10.3) 05/06/21 06:41 Total Bilirubin 0.5 mg/dL (0.2-1.0) 04/19/21 18:17 AST 21 IU/L (10-42) 04/19/21 18:17 ALT 23 IU/L (10-60) 04/19/21 18:17 Alkaline Phosphatase 77 IU/L (42-121) 04/19/21 18:17 Total Protein 8.3 g/dL (6.7-8.2) H 04/19/21 18:17 Albumin 4.1 g/dL (3.2-5.5) 04/19/21 18:17 Globulin 4.2 g/dL (2.1-4.2) 04/19/21 18:17 Albumin/Globulin Ratio 1.0 (1.0-2.2) 04/19/21 18:17 Lipase 25 U/L (22-51) 04/19/21 18:17 Nasal Adenovirus (PCR) NOT DETECTED 05/05/21 15:05 Nasal B. parapertussis DNA (PCR) NOT DETECTED 05/05/21 15:05 Nasal Coronavir 229E PCR NOT DETECTED 05/05/21 15:05 Nasal Coronavir HKU1 PCR NOT DETECTED 05/05/21 15:05 Nasal Coronavir NL63 PCR NOT DETECTED 05/05/21 15:05 Nasal Coronavir OC43 PCR NOT DETECTED 05/05/21 15:05 Nasal Enterovir/Rhinovir PCR DETECTED A 05/05/21 15:05 Nasal Influenza B PCR NOT DETECTED 05/05/21 15:05 Nasal Influenza A PCR NOT DETECTED 05/05/21 15:05 Nasal Parainfluen 1 PCR NOT DETECTED 05/05/21 15:05 Nasal Parainfluen 2 PCR NOT DETECTED 05/05/21 15:05 Nasal Parainfluen 3 PCR NOT DETECTED 05/05/21 15:05 Nasal Parainfluen 4 PCR NOT DETECTED 05/05/21 15:05 Nasal RSV (PCR) NOT DETECTED 05/05/21 15:05 Nasal B.pertussis DNA PCR NOT DETECTED 05/05/21 15:05 Nasal C.pneumoniae (PCR) NOT DETECTED 05/05/21 15:05 Javi Human Metapneumo PCR NOT DETECTED 05/05/21 15:05 Nasal M.pneumoniae (PCR) NOT DETECTED 05/05/21 15:05 Nasal SARS-CoV-2 (PCR) NOT DETECTED 05/05/21 15:05 Group A Strep Rapid Negative (Negative) 05/01/21 08:40 ABX Reporting Has patient been on IV antibiotics over the past 48 hours?: Yes Current Medications - Current Medications Current Medications: Active Medications Acetaminophen (Acetaminophen 325 Mg Tablet) 650 mg PO Q4HR PRN PRN Reason: Pain or Fever > 38C (100.4F) Last Admin: 05/10/21 09:34 Dose: 650 mg Documented by: Amlodipine Besylate (Amlodipine 5 Mg Tablet) 10 mg PO DAILY [facility] Last Admin: 05/10/21 09:32 Dose: 10 mg Documented by: Clindamycin HCl (Clindamycin 150 Mg Capsule) 300 mg PO Q8HR [facility] Last Admin: 05/10/21 13:58 Dose: 300 mg Documented by: Cyclobenzaprine HCl (Cyclobenzaprine 10 Mg Tablet) 10 mg PO TID PRN PRN Reason: Spasms Last Admin: 05/10/21 00:37 Dose: 10 mg Documented by: Diphenhydramine HCl (Diphenhydramine 25 Mg Capsule) 25 mg PO QPM PRN PRN Reason: Insomnia Last Admin: 05/10/21 00:36 Dose: 25 mg Documented by: Enoxaparin Sodium (Enoxaparin 40 Mg/0.4 Ml Syringe) 40 mg SUBQ DAILY [facility] Last Admin: 05/10/21 09:32 Dose: 40 mg Documented by: Ferrous Sulfate (Ferrous Sulfate 325 Mg Tablet) 325 mg PO Q48H [facility] Last Admin: 05/10/21 09:32 Dose: 325 mg Documented by: Gabapentin (Gabapentin 300 Mg Capsule) 300 mg PO BID [facility] Last Admin: 05/10/21 09:32 Dose: 300 mg Documented by: Hydralazine HCl (Hydralazine 25 Mg Tablet) 100 mg PO TID [facility] Last Admin: 05/10/21 13:57 Dose: 100 mg Documented by: Ibuprofen (Ibuprofen 400 Mg Tablet) 400 mg PO Q6HR PRN PRN Reason: PAIN Last Admin: 05/10/21 09:33 Dose: 400 mg Documented by: Insulin Aspart (Insulin Aspart 300 Unit/3 Ml Pen) 2 - 10 unit SUBQ 0800,1200,1700,2100 [facility]; Protocol Last Admin: 05/10/21 11:40 Dose: Not Given Documented by: Insulin Glargine (Insulin Glargine 300 Unit/3 Ml Pen) 18 unit SUBQ QPM [facility] Last Admin: 05/09/21 21:06 Dose: 18 unit Documented by: Lisinopril (Lisinopril 20 Mg Tablet) 40 mg PO DAILY [facility] Last Admin: 05/10/21 09:32 Dose: 40 mg Documented by: Morphine Sulfate (Morphine Er 15 Mg Tablet) 15 mg PO Q4HR PRN PRN Reason: PAIN Last Admin: 05/10/21 09:33 Dose: 15 mg Documented by: Multivitamins/Minerals (Multivitamin W/Minerals Tablet) 1 tab PO DAILYWM [facility] Last Admin: 05/10/21 10:48 Dose: 1 tab Documented by: Ondansetron HCl (Ondansetron 4 Mg/2 Ml Vial) 4 mg IVP Q6HR PRN PRN Reason: Nausea / Vomiting Oxycodone HCl (Oxycodone 5 Mg Tablet) 15 mg PO Q4HR PRN PRN Reason: PAIN Last Admin: 05/10/21 13:59 Dose: 15 mg Documented by: Pantoprazole Sodium (Pantoprazole 40 Mg Tablet) 40 mg PO BIDAC [facility] Last Admin: 05/10/21 06:58 Dose: 40 mg Documented by: Polyethylene Glycol (Polyethylene Glycol 3350 17 Gm Packet) 17 gm PO DAILY PRN PRN Reason: CONSTIPATION Last Admin: 05/09/21 16:46 Dose: 17 gm Documented by: Saccharomyces Boulardii (Saccharomyces Boulardii 250 Mg Capsule) 500 mg PO BIDW M [facility] Last Admin: 05/10/21 09:32 Dose: 500 mg Documented by: Sodium Chloride (Sodium Chloride Flush 0.9% 10 Ml Syringe) 10 ml IVP 0100,0900,1700 [facility] Last Admin: 05/10/21 09:32 Dose: 10 ml Documented by: Sodium Chloride (Sodium Chloride Flush 0.9% 10 Ml Syringe) 10 ml IVP PRN PRN PRN Reason: Per Line Care protocol Tamsulosin HCl (Tamsulosin 0.4 Mg Capsule) 0.4 mg PO DAILY [facility] Last Admin: 05/10/21 09:32 Dose: Not Given Documented by: Zinc Oxide (Cod Liver Oil/Zinc Oxide 113 Gm Tube) 1 gm TOP BID [facility] Last Admin: 05/10/21 09:32 Dose: Not Given Documented by: Acetaminophen [Tylenol] 650 mg PO Q4HR PRN 04/19/21 Amlodipine Besylate [Norvasc] 10 mg PO DAILY 04/19/21 Carisoprodol [Soma] 350 mg PO DAILY PRN 04/19/21 Ferrous Sulfate 325 mg PO DAILY 04/19/21 Gabapentin [Neurontin] 300 mg PO BID 04/19/21 Hydralazine HCl 100 mg PO TID 04/19/21 Insulin Glargine [Lantus Solostar] 15 unit SQ HS 04/19/21 Lisinopril [Zestril] 40 mg PO DAILY 04/19/21 Melatonin 3 mg PO HS 04/19/21 Morphine ER [Morphine Sulfate ER] 15 mg PO Q4HR PRN 04/19/21 Multivit with Iron,Minerals [Complete Senior] 1 each PO DAILY 04/19/21 Naloxone HCl [Narcan] 4 mg NS PRN PRN 04/19/21 Oxycodone HCl [Roxicodone] 15 mg PO Q4HR PRN 04/19/21 Pantoprazole [Protonix] 40 mg PO DAILY 04/19/21 Tamsulosin [Flomax] 0.4 mg PO DAILY 04/19/21 polyethylene glycoL 3350 [Miralax] 17 gm PO DAILY PRN 04/19/21
[2021-05-10] MEDS: INSULIN GLARGINE 300 UNIT/3 ML PEN SUBQ SCH (21:43)
[2021-05-11] MEDS: oxyCODONE 5 MG TABLET PO PRN ×4 (01:02→17:19)
[2021-05-11] MEDS: IBUPROFEN 400 MG TABLET PO PRN ×2 (01:03→21:29)
[2021-05-11] MEDS: SODIUM CHLORIDE FLUSH 0.9% 10 ML SYRINGE IVP SCH ×3 (01:04→17:20)
[2021-05-11] MEDS: MORPHINE ER 15 MG TABLET PO PRN ×4 (03:45→21:28)
[2021-05-11] MEDS: ACETAMINOPHEN 325 MG TABLET PO PRN ×2 (03:45→17:19)
[2021-05-11] MEDS: hydrALAZINE 25 MG TABLET PO SCH ×3 (06:16→21:31)
[2021-05-11] MEDS: CYCLOBENZAPRINE 10 MG TABLET PO PRN (06:17)
[2021-05-11] MEDS: CLINDAMYCIN 150 MG CAPSULE PO SCH ×3 (06:17→21:28)
[2021-05-11] MEDS: PANTOPRAZOLE 40 MG TABLET PO SCH ×2 (06:17→17:20)
[2021-05-11] MEDS: INSULIN ASPART 300 UNIT/3 ML PEN SUBQ SCH ×4 (09:13→21:30)
[2021-05-11] MEDS: MULTIVITAMIN W/MINERALS TABLET PO SCH (09:14)
[2021-05-11] MEDS: amLODIPine 5 MG TABLET PO SCH (09:14)
[2021-05-11] MEDS: SACCHAROMYCES BOULARDII 250 MG CAPSULE PO SCH ×2 (09:14→17:20)
[2021-05-11] MEDS: COD LIVER OIL/ZINC OXIDE 113 GM TUBE TOP SCH ×2 (09:15→21:28)
[2021-05-11] MEDS: lisinopriL 20 MG TABLET PO SCH (09:15)
[2021-05-11] MEDS: GABAPENTIN 300 MG CAPSULE PO SCH ×2 (09:15→21:28)
[2021-05-11] MEDS: TAMSULOSIN 0.4 MG CAPSULE PO SCH (09:16)
[2021-05-11] MEDS: ENOXAPARIN 40 MG/0.4 ML SYRINGE SUBQ SCH (09:19)
--- NOTE | 2021-05-11 14:16 | PROVIDER PROGRESS NOTE ---
Assessment/Plan - Problem List (1) Cellulitis Qualifiers: Site of cellulitis: extremity Site of cellulitis of extremity: toe Laterality: left Qualified Code(s): L03.032 - Cellulitis of left toe Assessment/Plan: 05/11 stable, pt is comfortable sleeping at the bed, no complaints per nurse. pt has hx of chronic pain, he ask his pain meds on time per nurse report. 05/10 stable. pt had Xray of his left foot which showed no osseous erosion is identified, no suspicious bony lesion. pt is happy about the image study result. continue finish antibiotics treatment course. since pt had hx of uncontrolled diabetes foot infection and amputation from infection, expected pt had two weeks antibiotics treatment to control his infection, and continue probiotics as well. 05/09 improved, swelling is significantly reduced, erythema also reduced. continue antibiotics and probiotics. continue wound care for first toe. pt had amputation on left first toe recently. the surgery site appear no infection but need dressing change. pt's left second toe appear mild erythema, and mild swelling. pt has no fever, and Hemodynamically stable. MRI of left foot on 03/28/21 at [facility] did not reveal osteomyelitis or significant concern on his left second toe. Since pt's left second toe just appear mild erythema and mild swelling, if clinically pt still does not improve after treatment, then we may consider further image study. pt has hx of many medications allergies. we will order Clindamycin and Pr obiotics, lab monitor, check lactic acid, and blood culture, order CBC/BMP lab monitor. (2) DMII (diabetes mellitus, type 2) Conclusion/Plan: 05/11 controlled glucose level, continue slide scale, glucose check and Hypoglycemia protocol 05/10 good control glucose level, continue current slide scale, continue glucose check and Hypoglycemia protocol 05/09, glucose is slight elevated, will increase slide scale, continue glucose check and Hypoglycemia protocol pt had hx of uncontrolled diabetes and diabetes complication leading to amputation. resume home Lantus, ER already reconcile home lantus, add slide scale, hypoglycemia protocol, check A1C, check glucose ACHS, and carb control diet. (3) Mobility impaired Conclusion/Plan: 05/09, We will continue consult with social work for discharge planning. 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 pt may continue followup with surgeon as out-pt, we will continue dressing change, wound care, continue consult with health social work professor for Disposition planning. (4) HTN (hypertension) Conclusion/Plan: we will resume home BP medications, and vital sign monitor (5) Chronic pain Conclusion/Plan: we will resume his home pain control regimen, pt may followup with his PCP to continue his pain management as out-pt. (2) DMII (diabetes mellitus, type 2) Qualifiers: Diabetes mellitus watermelon inspector insulin use: with correction use Diabetes mellitus complication status: with skin complications Diabetes mellitus complication detail: with other skin complication Qualified Code(s): E11.628 - Type 2 diabetes mellitus with other skin complications; Z79.4 - group home (current) use of insulin - Current Meds Current Meds: Current Medications Generic Name Dose Route Start Last Admin Trade Name Freq PRN Reason Stop Dose Admin Acetaminophen 650 mg 04/20/21 12:11 05/11/21 03:45 Acetaminophen 325 Mg Tablet PO 650 mg Q4HR PRN Administration Pain or Fever > 38C (100.4F) Amlodipine Besylate 10 mg 04/20/21 13:00 05/11/21 09:14 Amlodipine 5 Mg Tablet PO 10 mg DAILY [facility] Administration Clindamycin HCl 300 mg 05/05/21 17:00 05/11/21 06:17 Clindamycin 150 Mg Capsule PO 300 mg Q8HR [facility] Administration Cyclobenzaprine HCl 10 mg 04/23/21 16:33 05/11/21 06:17 Cyclobenzaprine 10 Mg Tablet PO 10 mg TID PRN Administration Spasms Diphenhydramine HCl 25 mg 05/08/21 17:31 05/10/21 21:51 Diphenhydramine 25 Mg Capsule PO 25 mg QPM PRN Administration Insomnia Enoxaparin Sodium 40 mg 05/06/21 09:00 05/11/21 09:19 Enoxaparin 40 Mg/0.4 Ml Syringe SUBQ 40 mg DAILY [facility] Administration Ferrous Sulfate 325 mg 04/22/21 09:00 05/10/21 09:32 Ferrous Sulfate 325 Mg Tablet PO 325 mg Q48H [facility] Administration Gabapentin 300 mg 04/20/21 13:00 05/11/21 09:15 Gabapentin 300 Mg Capsule PO 300 mg BID [facility] Administration Hydralazine HCl 100 mg 04/20/21 14:00 05/11/21 06:16 Hydralazine 25 Mg Tablet PO 100 mg TID [facility] Administration Ibuprofen 400 mg 05/06/21 20:27 05/11/21 01:03 Ibuprofen 400 Mg Tablet PO 400 mg Q6HR PRN Administration PAIN Insulin Aspart 2 - 10 unit 05/09/21 17:00 05/11/21 11:59 Insulin Aspart 300 Unit/3 Ml Pen SUBQ Not Given 0800,1200,1700,2100 [facility] Protocol Insulin Glargine 18 unit 04/29/21 21:00 05/10/21 21:43 Insulin Glargine 300 Unit/3 Ml Pen SUBQ 18 unit QPM [facility] Administration Lisinopril 40 mg 04/20/21 13:00 05/11/21 09:15 Lisinopril 20 Mg Tablet PO 40 mg DAILY [facility] Administration Morphine Sulfate 15 mg 05/05/21 15:21 05/11/21 09:28 Morphine Er 15 Mg Tablet PO 15 mg Q4HR PRN Administration PAIN Multivitamins/Minerals 1 tab 04/21/21 08:00 05/11/21 09:14 Multivitamin W/Minerals Tablet PO 1 tab DAILYWM [facility] Administration Oxycodone HCl 15 mg 04/20/21 12:27 05/11/21 12:07 Oxycodone 5 Mg Tablet PO 15 mg Q4HR PRN Administration PAIN Pantoprazole Sodium 40 mg 04/20/21 16:00 05/11/21 06:17 Pantoprazole 40 Mg Tablet PO 40 mg BIDAC [facility] Administration Polyethylene Glycol 17 gm 04/20/21 12:19 05/09/21 16:46 Polyethylene Glycol 3350 17 Gm Packet PO 17 gm DAILY PRN Administration CONSTIPATION Saccharomyces Boulardii 500 mg 05/05/21 17:00 05/11/21 09:14 Saccharomyces Boulardii 250 Mg Capsule PO 500 mg BIDWM [facility] Administration Sodium Chloride 10 ml 05/09/21 09:00 05/11/21 09:16 Sodium Chloride Flush 0.9% 10 Ml Syringe IVP 10 ml 0100,0900,1700 [facility] Administration Tamsulosin HCl 0.4 mg 04/20/21 13:00 05/11/21 09:16 Tamsulosin 0.4 Mg Capsule PO 0.4 mg DAILY [facility] Administration Zinc Oxide 1 gm 04/21/21 23:45 05/11/21 09:15 Cod Liver Oil/Zinc Oxide 113 Gm Tube TOP 1 gm BID [facility] Administration - Lab Result Fish Bone Diagrams: 05/06/21 06:41 05/06/21 06:41 Subjective - Subjective Patient Reports: Resting Comfortably Objective Vital Signs: Vital Signs - 24 hr 05/10/21 05/10/21 05/11/21 15:41 21:49 08:19 Temperature 36.8 C 36.7 C Heart Rate [ 68 68 71 Brachial] Respiratory 16 20 Rate Blood Pressure 163/57 H 150/56 H 170/65 H [Left Brachial artery] O2 Saturation 98 97 Oxygen O2 Source Room air I&O (Last 24 Hrs): Intake and Output Totals x24h 05/09/21 05/10/21 05/11/21 23:59 23:59 23:59 Intake Total 1820 1360 1840 Balance 1820 1360 1840 General: Alert, No acute distress HEENT: Atraumatic Neck: Supple Lymphatic: no adenopathy Neuro: Alert, Non Focal, Oriented Times 3 Cardiovascular: Regular rate, Normal S1, Normal S2 Respiratory: Chest non-tender, No respiratory distress Abdomen: Normal bowel sounds, Soft Extremities: Other (slight erythema at left second toe) - Results Results: Laboratory Results WBC 7.6 x10^3/uL (4.8-10.8) 05/06/21 06:41 RBC 3.96 10^6/uL (4.70-6.10) L 05/06/21 06:41 Hgb 10.5 g/dL (14.0-18.0) L 05/06/21 06:41 Hct 32.8 % (42.0-52.0) L 05/06/21 06:41 MCV 82.8 fL (80.0-94.0) 05/06/21 06:41 MCH 26.5 pg (27.0-31.0) L 05/06/21 06:41 MCHC 32.0 g/dL (32.0-36.0) 05/06/21 06:41 RDW 15.4 % (12.0-15.0) H 05/06/21 06:41 Plt Count 309 10^3/uL (130-450) 05/06/21 06:41 MPV 10.1 fL (7.4-11.4) 05/06/21 06:41 Neut # (Auto) 5.4 10^3/uL (1.5-6.6) 05/06/21 06:41 Lymph # (Auto) 1.2 10^3/uL (1.5-3.5) L 05/06/21 06:41 Ponce # (Auto) 0.7 10^3/uL (0.0-1.0) 05/06/21 06:41 Eos # (Auto) 0.3 10^3/uL (0.0-0.7) 05/06/21 06:41 Baso # (Auto) 0.1 10^3/uL (0.0-0.1) 05/06/21 06:41 Absolute Nucleated RBC 0.00 x10^3/uL 05/06/21 06:41 Nucleated RBC % 0.0 /100WBC 05/06/21 06:41 Sodium 134 mmol/L (135-145) L 05/06/21 06:41 Potassium 4.7 mmol/L (3.5-5.0) 05/06/21 06:41 Chloride 96 mmol/L (101-111) L 05/06/21 06:41 Carbon Dioxide 29 mmol/L (21-32) 05/06/21 06:41 Anion Gap 9.0 (6-13) 05/06/21 06:41 BUN 26 mg/dL (6-20) H 05/06/21 06:41 Creatinine 0.9 mg/dL (0.6-1.2) 05/06/21 06:41 Estimated GFR (MDRD) 83 (>89) L 05/06/21 06:41 Glucose 110 mg/dL (70-100) H 05/06/21 06:41 POC Whole Bld Glucose 131 mg/dL (70 - 100) H 05/11/21 11:55 Estimat Average Glucose 177 mg/dL (70-100) H 05/06/21 06:41 Hemoglobin A1c % 7.8 % (4.27-6.07) H 05/06/21 06:41 Lactic Acid 0.8 mmol/L (0.5-2.2) 05/05/21 14:40 Calcium 9.1 mg/dL (8.5-10.3) 05/06/21 06:41 Total Bilirubin 0.5 mg/dL (0.2-1.0) 04/19/21 18:17 AST 21 IU/L (10-42) 04/19/21 18:17 ALT 23 IU/L (10-60) 04/19/21 18:17 Alkaline Phosphatase 77 IU/L (42-121) 04/19/21 18:17 Total Protein 8.3 g/dL (6.7-8.2) H 04/19/21 18:17 Albumin 4.1 g/dL (3.2-5.5) 04/19/21 18:17 Globulin 4.2 g/dL (2.1-4.2) 04/19/21 18:17 Albumin/Globulin Ratio 1.0 (1.0-2.2) 04/19/21 18:17 Lipase 25 U/L (22-51) 04/19/21 18:17 Nasal Adenovirus (PCR) NOT DETECTED 05/05/21 15:05 Nasal B. parapertussis DNA (PCR) NOT DETECTED 05/05/21 15:05 Nasal Coronavir 229E PCR NOT DETECTED 05/05/21 15:05 Nasal Coronavir HKU1 PCR NOT DETECTED 05/05/21 15:05 Nasal Coronavir NL63 PCR NOT DETECTED 05/05/21 15:05 Nasal Coronavir OC43 PCR NOT DETECTED 05/05/21 15:05 Nasal Enterovir/Rhinovir PCR DETECTED A 05/05/21 15:05 Nasal Influenza B PCR NOT DETECTED 05/05/21 15:05 Nasal Influenza A PCR NOT DETECTED 05/05/21 15:05 Nasal Parainfluen 1 PCR NOT DETECTED 05/05/21 15:05 Nasal Parainfluen 2 PCR NOT DETECTED 05/05/21 15:05 Nasal Parainfluen 3 PCR NOT DETECTED 05/05/21 15:05 Nasal Parainfluen 4 PCR NOT DETECTED 05/05/21 15:05 Nasal RSV (PCR) NOT DETECTED 05/05/21 15:05 Nasal B.pertussis DNA PCR NOT DETECTED 05/05/21 15:05 Nasal C.pneumoniae (PCR) NOT DETECTED 05/05/21 15:05 Javi Human Metapneumo PCR NOT DETECTED 05/05/21 15:05 Nasal M.pneumoniae (PCR) NOT DETECTED 05/05/21 15:05 Nasal SARS-CoV-2 (PCR) NOT DETECTED 05/05/21 15:05 Group A Strep Rapid Negative (Negative) 05/01/21 08:40 ABX Reporting Has patient been on IV antibiotics over the past 48 hours?: Yes Current Medications - Current Medications Current Medications: Active Medications Acetaminophen (Acetaminophen 325 Mg Tablet) 650 mg PO Q4HR PRN PRN Reason: Pain or Fever > 38C (100.4F) Last Admin: 05/11/21 03:45 Dose: 650 mg Documented by: Amlodipine Besylate (Amlodipine 5 Mg Tablet) 10 mg PO DAILY [facility] Last Admin: 05/11/21 09:14 Dose: 10 mg Documented by: Clindamycin HCl (Clindamycin 150 Mg Capsule) 300 mg PO Q8HR [facility] Last Admin: 05/11/21 06:17 Dose: 300 mg Documented by: Cyclobenzaprine HCl (Cyclobenzaprine 10 Mg Tablet) 10 mg PO TID PRN PRN Reason: Spasms Last Admin: 05/11/21 06:17 Dose: 10 mg Documented by: Diphenhydramine HCl (Diphenhydramine 25 Mg Capsule) 25 mg PO QPM PRN PRN Reason: Insomnia Last Admin: 05/10/21 21:51 Dose: 25 mg Documented by: Enoxaparin Sodium (Enoxaparin 40 Mg/0.4 Ml Syringe) 40 mg SUBQ DAILY [facility] Last Admin: 05/11/21 09:19 Dose: 40 mg Documented by: Ferrous Sulfate (Ferrous Sulfate 325 Mg Tablet) 325 mg PO Q48H [facility] Last Admin: 05/10/21 09:32 Dose: 325 mg Documented by: Gabapentin (Gabapentin 300 Mg Capsule) 300 mg PO BID [facility] Last Admin: 05/11/21 09:15 Dose: 300 mg Documented by: Hydralazine HCl (Hydralazine 25 Mg Tablet) 100 mg PO TID [facility] Last Admin: 05/11/21 06:16 Dose: 100 mg Documented by: Ibuprofen (Ibuprofen 400 Mg Tablet) 400 mg PO Q6HR PRN PRN Reason: PAIN Last Admin: 05/11/21 01:03 Dose: 400 mg Documented by: Insulin Aspart (Insulin Aspart 300 Unit/3 Ml Pen) 2 - 10 unit SUBQ 0800,1200,1700,2100 [facility]; Protocol Last Admin: 05/11/21 11:59 Dose: Not Given Documented by: Insulin Glargine (Insulin Glargine 300 Unit/3 Ml Pen) 18 unit SUBQ QPM [facility] Last Admin: 05/10/21 21:43 Dose: 18 unit Documented by: Lisinopril (Lisinopril 20 Mg Tablet) 40 mg PO DAILY [facility] Last Admin: 05/11/21 09:15 Dose: 40 mg Documented by: Morphine Sulfate (Morphine Er 15 Mg Tablet) 15 mg PO Q4HR PRN PRN Reason: PAIN Last Admin: 05/11/21 09:28 Dose: 15 mg Documented by: Multivitamins/Minerals (Multivitamin W/Minerals Tablet) 1 tab PO DAILYWM [facility] Last Admin: 05/11/21 09:14 Dose: 1 tab Documented by: Ondansetron HCl (Ondansetron 4 Mg/2 Ml Vial) 4 mg IVP Q6HR PRN PRN Reason: Nausea / Vomiting Oxycodone HCl (Oxycodone 5 Mg Tablet) 15 mg PO Q4HR PRN PRN Reason: PAIN Last Admin: 05/11/21 12:07 Dose: 15 mg Documented by: Pantoprazole Sodium (Pantoprazole 40 Mg Tablet) 40 mg PO BIDAC [facility] Last Admin: 05/11/21 06:17 Dose: 40 mg Documented by: Polyethylene Glycol (Polyethylene Glycol 3350 17 Gm Packet) 17 gm PO DAILY PRN PRN Reason: CONSTIPATION Last Admin: 05/09/21 16:46 Dose: 17 gm Documented by: Saccharomyces Boulardii (Saccharomyces Boulardii 250 Mg Capsule) 500 mg PO BIDWM [facility] Last Admin: 05/11/21 09:14 Dose: 500 mg Documented by: Sodium Chloride (Sodium Chloride Flush 0.9% 10 Ml Syringe) 10 ml IVP 0100,0900,1700 [facility] Last Admin: 05/11/21 09:16 Dose: 10 ml Documented by: Sodium Chloride (Sodium Chloride Flush 0.9% 10 Ml Syringe) 10 ml IVP PRN PRN PRN Reason: Per Line Care protocol Tamsulosin HCl (Tamsulosin 0.4 Mg Capsule) 0.4 mg PO DAILY [facility] Last Admin: 05/11/21 09:16 Dose: 0.4 mg Documented by: Zinc Oxide (Cod Liver Oil/Zinc Oxide 113 Gm Tube) 1 gm TOP BID [facility] Last Admin: 05/11/21 09:15 Dose: 1 gm Documented by: Acetaminophen [Tylenol] 650 mg PO Q4HR PRN 04/19/21 Amlodipine Besylate [Norvasc] 10 mg PO DAILY 04/19/21 Carisoprodol [Soma] 350 mg PO DAILY PRN 04/19/21 Ferrous Sulfate 325 mg PO DAILY 04/19/21 Gabapentin [Neurontin] 300 mg PO BID 04/19/21 Hydralazine HCl 100 mg PO TID 04/19/21 Insulin Glargine [Lantus Solostar] 15 unit SQ HS 04/19/21 Lisinopril [Zestril] 40 mg PO DAILY 04/19/21 Melatonin 3 mg PO HS 04/19/21 Morphine ER [Morphine Sulfate ER] 15 mg PO Q4HR PRN 04/19/21 Multivit with Iron,Minerals [Complete Senior] 1 each PO DAILY 04/19/21 Naloxone HCl [Narcan] 4 mg NS PRN PRN 04/19/21 Oxycodone HCl [Roxicodone] 15 mg PO Q4HR PRN 04/19/21 Pantoprazole [Protonix] 40 mg PO DAILY 04/19/21 Tamsulosin [Flomax] 0.4 mg PO DAILY 04/19/21 polyethylene glycoL 3350 [Miralax] 17 gm PO DAILY PRN 04/19/21
[2021-05-11] MEDS: INSULIN GLARGINE 300 UNIT/3 ML PEN SUBQ SCH (21:30)
[2021-05-12] MEDS: polyethylene glycoL 3350 17 GM PACKET PO PRN (01:39)
[2021-05-12] MEDS: SODIUM CHLORIDE FLUSH 0.9% 10 ML SYRINGE IVP SCH ×3 (01:39→17:23)
[2021-05-12] MEDS: oxyCODONE 5 MG TABLET PO PRN ×5 (01:40→21:49)
[2021-05-12] MEDS: diphenhydrAMINE 25 MG CAPSULE PO PRN (01:40)
[2021-05-12] MEDS: ACETAMINOPHEN 325 MG TABLET PO PRN ×5 (01:40→21:48)
[2021-05-12] MEDS: hydrALAZINE 25 MG TABLET PO SCH ×3 (07:19→21:48)
[2021-05-12] MEDS: PANTOPRAZOLE 40 MG TABLET PO SCH ×2 (07:19→17:20)
[2021-05-12] MEDS: CLINDAMYCIN 150 MG CAPSULE PO SCH ×3 (07:19→21:48)
[2021-05-12] MEDS: INSULIN ASPART 300 UNIT/3 ML PEN SUBQ SCH ×4 (10:13→20:37)
[2021-05-12] MEDS: lisinopriL 20 MG TABLET PO SCH (11:06)
[2021-05-12] MEDS: GABAPENTIN 300 MG CAPSULE PO SCH ×2 (11:07→21:47)
[2021-05-12] MEDS: MULTIVITAMIN W/MINERALS TABLET PO SCH (11:08)
[2021-05-12] MEDS: FERROUS SULFATE 325 MG TABLET PO SCH (11:08)
[2021-05-12] MEDS: TAMSULOSIN 0.4 MG CAPSULE PO SCH (11:09)
[2021-05-12] MEDS: SACCHAROMYCES BOULARDII 250 MG CAPSULE PO SCH ×2 (11:09→11:11)
[2021-05-12] MEDS: ENOXAPARIN 40 MG/0.4 ML SYRINGE SUBQ SCH (11:15)
[2021-05-12] MEDS: COD LIVER OIL/ZINC OXIDE 113 GM TUBE TOP SCH ×2 (11:19→21:49)
[2021-05-12] MEDS: amLODIPine 5 MG TABLET PO SCH (11:36)
[2021-05-12] MEDS: guaiFENesin 600 MG TABLET PO SCH ×2 (13:07→21:48)
--- NOTE | 2021-05-12 13:10 | XRAY Report ---
PROCEDURE: Chest 1 View X-Ray INDICATIONS: Cough, SOB TECHNIQUE: One view of the chest was acquired. COMPARISON: None. FINDINGS: SUPPORT DEVICES: Left chest wall surgical clips. LUNGS/PLEURA: No focal consolidation, pleural effusion or space-occupying pneumothorax. MEDIASTINUM: The cardiomediastinal silhouette is within normal limits. BONES/SOFT TISSUES: No acute abnormality. IMPRESSION: 1.No acute cardiopulmonary abnormality. Reviewed by: Danis Latham MD on 05/12/2021 1:09 PM [facility] Approved by: Danis Latham MD on 05/12/2021 1:09 PM [facility] Station ID: [id number]
[2021-05-12] MEDS: MORPHINE ER 15 MG TABLET PO PRN ×2 (14:01→19:52)
[2021-05-12] MEDS: IBUPROFEN 400 MG TABLET PO PRN ×2 (14:02→19:52)
--- NOTE | 2021-05-12 14:32 | PROVIDER PROGRESS NOTE ---
Assessment/Plan - Problem List (1) Cellulitis Qualifiers: Site of cellulitis: extremity Site of cellulitis of extremity: toe Laterality: left Qualified Code(s): L03.032 - Cellulitis of left toe Assessment/Plan: 05/12 continue improved. pt is happy with the progress of his left second toe cellulitis. Xray of his left foot which showed no osseous erosion is identified. we will finish 14 days PO antibiotics clindamycin with probiotics. consult with social sciences professor for replacement. 05/11 stable, pt is comfortable sleeping at the bed, no complaints per nurse. pt has hx of chronic pain, he ask his pain meds on time per nurse report. 05/10 stable. pt had Xray of his left foot which showed no osseous erosion is identified, no suspicious bony lesion. pt is happy about the image study result. continue finish antibiotics treatment course. since pt had hx of uncontrolled diabetes foot infection and amputation from infection, expected pt had two weeks antibiotics treatment to control his infection, and continue probiotics as well. 05/09 improved, swelling is significantly reduced, erythema also reduced. continue antibiotics and probiotics. continue wound care for first toe. pt had amputation on left first toe recently. the surgery site appear no infection but need dressing change. pt's left second toe appear mild erythema, and mild swelling. pt has no fever, and Hemodynamically stable. MRI of left foot on 03/28/21 at [facility] did not reveal osteomyelitis or significant concern on his left second toe. Since pt's left second toe just appear mild erythema and mild swelling, if clinically pt still does not improve after treatment, then we may consider further image study. pt has hx of many medications allergies. we will order Clindamycin and Probiotics, lab monitor, check lactic acid, and blood culture, order CBC/BMP lab monitor. (2) DMII (diabetes mellitus, type 2) Conclusion/Plan: 05/11 controlled glucose level, continue slide scale, glucose check and Hypoglycemia protocol 05/10 good control glucose level, continue current slide scale, continue glucose check and Hypoglycemia protocol 05/09, glucose is slight elevated, will increase slide scale, continue glucose check and Hypoglycemia protocol pt had hx of uncontrolled diabetes and diabetes complication leading to amputation. resume home Lantus, ER already reconcile home lantus, add slide scale, hypoglycemia protocol, check A1C, check glucose ACHS, and carb control diet. (3) Mobility impaired Conclusion/Plan: 05/09, We will continue consult with social work for discharge planning. 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 pt may continue followup with surgeon as out-pt, we will continue dressing change, wound care, continue consult with social sciences professor for Disposition planning. (4) HTN (hypertension) Conclusion/Plan: we will resume home BP medications, and vital sign monitor (5) Chronic pain Conclusion/Plan: we will resume his home pain control regimen, pt may followup with his PCP to continue his pain management as out-pt. (6)cough pt present mild cough with sputum, no acute respiratory distress. pt Has 95% oxygen saturation on room air. Chest x-ray show no acute process. 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 - Current Meds Current Meds: Current Medications Generic Name Dose Route Start Last Admin Trade Name Freq PRN Reason Stop Dose Admin Acetaminophen 650 mg 04/20/21 12:11 05/12/21 11:04 Acetaminophen 325 Mg Tablet PO 650 mg Q4HR PRN Administration Pain or Fever > 38C (100.4F) Amlodipine Besylate 10 mg 04/20/21 13:00 05/12/21 11:36 Amlodipine 5 Mg Tablet PO 10 mg DAILY MANJEET Administration Clindamycin HCl 300 mg 05/05/21 17:00 05/12/21 14:01 Clindamycin 150 Mg Capsule PO 300 mg Q8HR MANJEET Administration Cyclobenzaprine HCl 10 mg 04/23/21 16:33 05/11/21 06:17 Cyclobenzaprine 10 Mg Tablet PO 10 mg TID PRN Administration Spasms Diphenhydramine HCl 25 mg 05/08/21 17:31 05/12/21 01:40 Diphenhydramine 25 Mg Capsule PO 25 mg QPM PRN Administration Insomnia Enoxaparin Sodium 40 mg 05/06/21 09:00 05/12/21 11:15 Enoxaparin 40 Mg/0.4 Ml Syringe SUBQ 40 mg DAILY MANJEET Administration Ferrous Sulfate 325 mg 04/22/21 09:00 05/12/21 11:08 Ferrous Sulfate 325 Mg Tablet PO 325 mg Q48H MANJEET Administration Gabapentin 300 mg 04/20/21 13:00 05/12/21 11:07 Gabapentin 300 Mg Capsule PO 300 mg BID MANJEET Administration Guaifenesin 600 mg 05/12/21 13:00 05/12/21 13:07 Guaifenesin 600 Mg Tablet PO 600 mg BID MANJEET Administration Hydralazine HCl 100 mg 04/20/21 14:00 05/12/21 14:03 Hydralazine 25 Mg Tablet PO 100 mg TID MANJEET Administration Ibuprofen 400 mg 05/06/21 20:27 05/12/21 14:02 Ibuprofen 400 Mg Tablet PO 400 mg Q6HR PRN Administration PAIN Insulin Aspart 2 - 10 unit 05/09/21 17:00 05/12/21 11:12 Insulin Aspart 300 Unit/3 Ml Pen SUBQ Not Given 0800,1200,1700,2100 [facility] Protocol Insulin Glargine 18 unit 04/29/21 21:00 05/11/21 21:30 Insulin Glargine 300 Unit/3 Ml Pen SUBQ 18 unit QPM MANJEET Administration Lisinopril 40 mg 04/20/21 13:00 05/12/21 11:06 Lisinopril 20 Mg Tablet PO 40 mg DAILY MANJEET Administration Morphine Sulfate 15 mg 05/05/21 15:21 05/12/21 14:01 Morphine Er 15 Mg Tablet PO 15 mg Q4HR PRN Administration PAIN Multivitamins/Minerals 1 tab 04/21/21 08:00 05/12/21 11:08 Multivitamin W/Minerals Tablet PO 1 tab DAILYWM MANJEET Administration Oxycodone HCl 15 mg 04/20/21 12:27 05/12/21 11:01 Oxycodone 5 Mg Tablet PO 15 mg Q4HR PRN Administration PAIN Pantoprazole Sodium 40 mg 04/20/21 16:00 05/12/21 07:19 Pantoprazole 40 Mg Tablet PO 40 mg BIDAC MANJEET Administration Polyethylene Glycol 17 gm 04/20/21 12:19 05/12/21 01:39 Polyethylene Glycol 3350 17 Gm Packet PO 17 gm DAILY PRN Administration CONSTIPATION Saccharomyces Boulardii 500 mg 05/05/21 17:00 05/12/21 11:11 Saccharomyces Boulardii 250 Mg Capsule PO 500 mg BIDWM MANJEET Administration Sodium Chloride 10 ml 05/09/21 09:00 05/12/21 11:18 Sodium Chloride Flush 0.9% 10 Ml Syringe IVP 10 ml 0100,0900,1700 MANJEET Administration Tamsulosin HCl 0.4 mg 04/20/21 13:00 05/12/21 11:09 Tamsulosin 0.4 Mg Capsule PO Not Given DAILY MANJEET Zinc Oxide 1 gm 04/21/21 23:45 05/12/21 11:19 Cod Liver Oil/Zinc Oxide 113 Gm Tube TOP 1 applic BID MANJEET Administration - Lab Result Fish Bone Diagrams: 05/06/21 06:41 05/06/21 06:41 - Additional Planning My Orders: My Active Orders 05/12/21 CUL, RESPIRATORY [RM] Urgent 05/12/21 13:00 guaiFENesin [Mucinex] 600 mg PO BID Subjective - Subjective Patient Reports: Resting Comfortably Objective Vital Signs: Vital Signs - 24 hr 05/12/21 07:48 Temperature 36.7 C Heart Rate [ 70 Brachial] Respiratory 18 Rate Blood Pressure 153/60 H [Left Brachial artery] O2 Saturation 95 Oxygen O2 Source Room air I&O (Last 24 Hrs): Intake and Output Totals x24h 05/10/21 05/11/21 05/12/21 23:59 23:59 23:59 Intake Total 1360 2690 2030 Balance 1360 2690 2030 General: Alert, Oriented x3, No acute distress HEENT: Atraumatic Neck: Supple Lymphatic: no adenopathy Neuro: Alert, Non Focal, Oriented Times 3 Cardiovascular: Regular rate, Normal S1, Normal S2 Respiratory: Chest non-tender, No respiratory distress Abdomen: Normal bowel sounds, Soft, No tenderness Extremities: Normal pulses, Other (mild erythema on left second toe without sw elling) - Results Results: Laboratory Results WBC 7.6 x10^3/uL (4.8-10.8) 05/06/21 06:41 RBC 3.96 10^6/uL (4.70-6.10) L 05/06/21 06:41 Hgb 10.5 g/dL (14.0-18.0) L 05/06/21 06:41 Hct 32.8 % (42.0-52.0) L 05/06/21 06:41 MCV 82.8 fL (80.0-94.0) 05/06/21 06:41 MCH 26.5 pg (27.0-31.0) L 05/06/21 06:41 MCHC 32.0 g/dL (32.0-36.0) 05/06/21 06:41 RDW 15.4 % (12.0-15.0) H 05/06/21 06:41 Plt Count 309 10^3/uL (130-450) 05/06/21 06:41 MPV 10.1 fL (7.4-11.4) 05/06/21 06:41 Neut # (Auto) 5.4 10^3/uL (1.5-6.6) 05/06/21 06:41 Lymph # (Auto) 1.2 10^3/uL (1.5-3.5) L 05/06/21 06:41 [place] # (Auto) 0.7 10^3/uL (0.0-1.0) 05/06/21 06:41 Eos # (Auto) 0.3 10^3/uL (0.0-0.7) 05/06/21 06:41 Baso # (Auto) 0.1 10^3/uL (0.0-0.1) 05/06/21 06:41 Absolute Nucleated RBC 0.00 x10^3/uL 05/06/21 06:41 Nucleated RBC % 0.0 /100WBC 05/06/21 06:41 Sodium 134 mmol/L (135-145) L 05/06/21 06:41 Potassium 4.7 mmol/L (3.5-5.0) 05/06/21 06:41 Chloride 96 mmol/L (101-111) L 05/06/21 06:41 Carbon Dioxide 29 mmol/L (21-32) 05/06/21 06:41 Anion Gap 9.0 (6-13) 05/06/21 06:41 BUN 26 mg/dL (6-20) H 05/06/21 06:41 Creatinine 0.9 mg/dL (0.6-1.2) 05/06/21 06:41 Estimated GFR (MDRD) 83 (>89) L 05/06/21 06:41 Glucose 110 mg/dL (70-100) H 05/06/21 06:41 POC Whole Bld Glucose 129 mg/dL (70 - 100) H 05/12/21 11:11 Estimat Average Glucose 177 mg/dL (70-100) H 05/06/21 06:41 Hemoglobin A1c % 7.8 % (4.27-6.07) H 05/06/21 06:41 Lactic Acid 0.8 mmol/L (0.5-2.2) 05/05/21 14:40 Calcium 9.1 mg/dL (8.5-10.3) 05/06/21 06:41 Total Bilirubin 0.5 mg/dL (0.2-1.0) 04/19/21 18:17 AST 21 IU/L (10-42) 04/19/21 18:17 ALT 23 IU/L (10-60) 04/19/21 18:17 Alkaline Phosphatase 77 IU/L (42-121) 04/19/21 18:17 Total Protein 8.3 g/dL (6.7-8.2) H 04/19/21 18:17 Albumin 4.1 g/dL (3.2-5.5) 04/19/21 18:17 Globulin 4.2 g/dL (2.1-4.2) 04/19/21 18:17 Albumin/Globulin Ratio 1.0 (1.0-2.2) 04/19/21 18:17 Lipase 25 U/L (22-51) 04/19/21 18:17 Nasal Adenovirus (PCR) NOT DETECTED 05/05/21 15:05 Nasal B. parapertussis DNA (PCR) NOT DETECTED 05/05/21 15:05 Nasal Coronavir 229E PCR NOT DETECTED 05/05/21 15:05 Nasal Coronavir HKU1 PCR NOT DETECTED 05/05/21 15:05 Nasal Coronavir NL63 PCR NOT DETECTED 05/05/21 15:05 Nasal Coronavir OC43 PCR NOT DETECTED 05/05/21 15:05 Nasal Enterovir/Rhinovir PCR DETECTED A 05/05/21 15:05 Nasal Influenza B PCR NOT DETECTED 05/05/21 15:05 Nasal Influenza A PCR NOT DETECTED 05/05/21 15:05 Nasal Parainfluen 1 PCR NOT DETECTED 05/05/21 15:05 Nasal Parainfluen 2 PCR NOT DETECTED 05/05/21 15:05 Nasal Parainfluen 3 PCR NOT DETECTED 05/05/21 15:05 Nasal Parainfluen 4 PCR NOT DETECTED 05/05/21 15:05 Nasal RSV (PCR) NOT DETECTED 05/05/21 15:05 Nasal B.pertussis DNA PCR NOT DETECTED 05/05/21 15:05 Nasal C.pneumoniae (PCR) NOT DETECTED 05/05/21 15:05 Javi Human Metapneumo PCR NOT DETECTED 05/05/21 15:05 Nasal M.pneumoniae (PCR) NOT DETECTED 05/05/21 15:05 Nasal SARS-CoV-2 (PCR) NOT DETECTED 05/05/21 15:05 Group A Strep Rapid Negative (Negative) 05/01/21 08:40 ABX Reporting Has patient been on IV antibiotics over the past 48 hours?: Yes Current Medications - Current Medications Current Medications: Active Medications Acetaminophen (Acetaminophen 325 Mg Tablet) 650 mg PO Q4HR PRN PRN Reason: Pain or Fever > 38C (100.4F) Last Admin: 05/12/21 11:04 Dose: 650 mg Documented by: Amlodipine Besylate (Amlodipine 5 Mg Tablet) 10 mg PO DAILY [facility] Last Admin: 05/12/21 11:36 Dose: 10 mg Documented by: Clindamycin HCl (Clindamycin 150 Mg Capsule) 300 mg PO Q8HR [facility] Last Admin: 05/12/21 14:01 Dose: 300 mg Documented by: Cyclobenzaprine HCl (Cyclobenzaprine 10 Mg Tablet) 10 mg PO TID PRN PRN Reason: Spasms Last Admin: 05/11/21 06:17 Dose: 10 mg Documented by: Diphenhydramine HCl (Diphenhydramine 25 Mg Capsule) 25 mg PO QPM PRN PRN Reason: Insomnia Last Admin: 05/12/21 01:40 Dose: 25 mg Documented by: Enoxaparin Sodium (Enoxaparin 40 Mg/0.4 Ml Syringe) 40 mg SUBQ DAILY [facility] Last Admin: 05/12/21 11:15 Dose: 40 mg Documented by: Ferrous Sulfate (Ferrous Sulfate 325 Mg Tablet) 325 mg PO Q48H [facility] Last Admin: 05/12/21 11:08 Dose: 325 mg Documented by: Gabapentin (Gabapentin 300 Mg Capsule) 300 mg PO BID [facility] Last Admin: 05/12/21 11:07 Dose: 300 mg Documented by: Guaifenesin (Guaifenesin 600 Mg Tablet) 600 mg PO BID [facility] Last Admin: 05/12/21 13:07 Dose: 600 mg Documented by: Hydralazine HCl (Hydralazine 25 Mg Tablet) 100 mg PO TID [facility] Last Admin: 05/12/21 14:03 Dose: 100 mg Documented by: Ibuprofen (Ibuprofen 400 Mg Tablet) 400 mg PO Q6HR PRN PRN Reason: PAIN Last Admin: 05/12/21 14:02 Dose: 400 mg Documented by: Insulin Aspart (Insulin Aspart 300 Unit/3 Ml Pen) 2 - 10 unit SUBQ 0800,120 0,1700,2100 [facility]; Protocol Last Admin: 05/12/21 11:12 Dose: Not Given Documented by: Insulin Glargine (Insulin Glargine 300 Unit/3 Ml Pen) 18 unit SUBQ QPM [facility] Last Admin: 05/11/21 21:30 Dose: 18 unit Documented by: Lisinopril (Lisinopril 20 Mg Tablet) 40 mg PO DAILY [facility] Last Admin: 05/12/21 11:06 Dose: 40 mg Documented by: Morphine Sulfate (Morphine Er 15 Mg Tablet) 15 mg PO Q4HR PRN PRN Reason: PAIN Last Admin: 05/12/21 14:01 Dose: 15 mg Documented by: Multivitamins/Minerals (Multivitamin W/Minerals Tablet) 1 tab PO DAILYWM [facility] Last Admin: 05/12/21 11:08 Dose: 1 tab Documented by: Ondansetron HCl (Ondansetron 4 Mg/2 Ml Vial) 4 mg IVP Q6HR PRN PRN Reason: Nausea / Vomiting Oxycodone HCl (Oxycodone 5 Mg Tablet) 15 mg PO Q4HR PRN PRN Reason: PAIN Last Admin: 05/12/21 11:01 Dose: 15 mg Documented by: Pantoprazole Sodium (Pantoprazole 40 Mg Tablet) 40 mg PO BIDAC [facility] Last Admin: 05/12/21 07:19 Dose: 40 mg Documented by: Polyethylene Glycol (Polyethylene Glycol 3350 17 Gm Packet) 17 gm PO DAILY PRN PRN Reason: CONSTIPATION Last Admin: 05/12/21 01:39 Dose: 17 gm Documented by: Saccharomyces Boulardii (Saccharomyces Boulardii 250 Mg Capsule) 500 mg PO BIDWM [facility] Last Admin: 05/12/21 11:11 Dose: 500 mg Documented by: Sodium Chloride (Sodium Chloride Flush 0.9% 10 Ml Syringe) 10 ml IVP 0100,0900,1700 [facility] Last Admin: 05/12/21 11:18 Dose: 10 ml Documented by: Sodium Chloride (Sodium Chloride Flush 0.9% 10 Ml Syringe) 10 ml IVP PRN PRN PRN Reason: Per Line Care protocol Tamsulosin HCl (Tamsulosin 0.4 Mg Capsule) 0.4 mg PO DAILY [facility] Last Admin: 05/12/21 11:09 Dose: Not Given Documented by: Zinc Oxide (Cod Liver Oil/Zinc Oxide 113 Gm Tube) 1 gm TOP BID [facility] Last Admin: 05/12/21 11:19 Dose: 1 applic Documented by: Acetaminophen [Tylenol] 650 mg PO Q4HR PRN 04/19/21 Amlodipine Besylate [Norvasc] 10 mg PO DAILY 04/19/21 Carisoprodol [Soma] 350 mg PO DAILY PRN 04/19/21 Ferrous Sulfate 325 mg PO DAILY 04/19/21 Gabapentin [Neurontin] 300 mg PO BID 04/19/21 Hydralazine HCl 100 mg PO TID 04/19/21 Insulin Glargine [Lantus Solostar] 15 unit SQ HS 04/19/21 Lisinopril [Zestril] 40 mg PO DAILY 04/19/21 Melatonin 3 mg PO HS 04/19/21 Morphine ER [Morphine Sulfate ER] 15 mg PO Q4HR PRN 04/19/21 Multivit with Iron,Minerals [Complete Senior] 1 each PO DAILY 04/19/21 Naloxone HCl [Narcan] 4 mg NS PRN PRN 04/19/21 Oxycodone HCl [Roxicodone] 15 mg PO Q4HR PRN 04/19/21 Pantoprazole [Protonix] 40 mg PO DAILY 04/19/21 Tamsulosin [Flomax] 0.4 mg PO DAILY 04/19/21 polyethylene glycoL 3350 [Miralax] 17 gm PO DAILY PRN 04/19/21
[2021-05-12] MEDS: CYCLOBENZAPRINE 10 MG TABLET PO PRN (17:20)
[2021-05-12] MEDS: INSULIN GLARGINE 300 UNIT/3 ML PEN SUBQ SCH (21:54)
[2021-05-12] MEDS ORDERED: BENZOCAINE SPRAY MM PRN (22:05)
[2021-05-12] MEDS: BENZOCAINE/MENTHOL LOZENGE MM PRN (22:51)
[2021-05-13] MEDS: diphenhydrAMINE 25 MG CAPSULE PO PRN (00:33)
[2021-05-13] MEDS: MORPHINE ER 15 MG TABLET PO PRN ×5 (00:34→21:44)
[2021-05-13] MEDS: SODIUM CHLORIDE FLUSH 0.9% 10 ML SYRINGE IVP SCH ×3 (00:35→16:29)
[2021-05-13] MEDS: ACETAMINOPHEN 325 MG TABLET PO PRN ×4 (02:48→19:47)
[2021-05-13] MEDS: oxyCODONE 5 MG TABLET PO PRN ×4 (02:49→19:47)
[2021-05-13] MEDS: CYCLOBENZAPRINE 10 MG TABLET PO PRN ×3 (02:49→16:28)
[2021-05-13] MEDS: hydrALAZINE 25 MG TABLET PO SCH ×3 (05:52→21:43)
[2021-05-13] MEDS: PANTOPRAZOLE 40 MG TABLET PO SCH ×2 (05:53→16:28)
[2021-05-13] MEDS: CLINDAMYCIN 150 MG CAPSULE PO SCH ×3 (05:53→21:44)
[2021-05-13] MEDS: IBUPROFEN 400 MG TABLET PO PRN ×3 (05:53→21:43)
[2021-05-13] MEDS: INSULIN ASPART 300 UNIT/3 ML PEN SUBQ SCH ×4 (08:23→21:45)
[2021-05-13] MEDS: SACCHAROMYCES BOULARDII 250 MG CAPSULE PO SCH ×2 (08:38→16:28)
[2021-05-13] MEDS: amLODIPine 5 MG TABLET PO SCH (08:40)
--- NOTE | 2021-05-13 08:40 | PROVIDER PROGRESS NOTE ---
Assessment/Plan - Problem List (1) Cellulitis Qualifiers: Site of cellulitis: extremity Site of cellulitis of extremity: toe Laterality: left Qualified Code(s): L03.032 - Cellulitis of left toe Assessment/Plan: 05/13, pt report he feel good, mucinex did help his mild cough, his chronic headache is better, no other complaint. pt is pending for replacement. 05/12 continue improved. pt is happy with the progress of his left second toe cellulitis. Xray of his left foot which showed no osseous erosion is identified. we will finish 14 days PO antibiotics clindamycin with probiotics. consult with social insurance administrator for replacement. 05/11 stable, pt is comfortable sleeping at the bed, no complaints per nurse. pt has hx of chronic pain, he ask his pain meds on time per nurse report. 05/10 stable. pt had Xray of his left foot which showed no osseous erosion is identified, no suspicious bony lesion. pt is happy about the image study result. continue finish antibiotics treatment course. since pt had hx of uncontrolled diabetes foot infection and amputation from infection, expected pt had two weeks antibiotics treatment to control his infection, and continue probiotics as well. 05/09 improved, swelling is significantly reduced, erythema also reduced. continue antibiotics and probiotics. continue wound care for first toe. pt had amputation on left first toe recently. the surgery site appear no infection but need dressing change. pt's left second toe appear mild erythema, and mild swelling. pt has no fever, and Hemodynamically stable. MRI of left foot on 03/28/21 at [place] did not reveal osteomyelitis or significant concern on his left second toe. Since pt's left second toe just appear mild erythema and mild swelling, if clinically pt still does not improve after treatment, then we may consider further image study. pt has hx of many medications allergies. we will order Clindamycin and Probiotics, lab monitor, check lactic acid, and blood culture, order CBC/BMP lab monitor. (2) DMII (diabetes mellitus, type 2) Conclusion/Plan: 05/13 glucose is controlled, continue home insulin regimen and slide scale 05/11 controlled glucose level, continue slide scale, glucose check and Hypoglycemia protocol 05/10 good control glucose level, continue current slide scale, continue glucose check and Hypoglycemia protocol 05/09, glucose is slight elevated, will increase slide scale, continue glucose check and Hypoglycemia protocol pt had hx of uncontrolled diabetes and diabetes complication leading to amputation. resume home Lantus, ER already reconcile home lantus, add slide scale, hypoglycemia protocol, check A1C, check glucose ACHS, and carb control diet. (3) Mobility impaired Conclusion/Plan: 05/09, We will continue consult with social work for discharge planning. 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 pt may continue followup with surgeon as out-pt, we will continue dressing change, wound care, continue consult with social insurance administrator for Disposition planning. (4) HTN (hypertension) Conclusion/Plan: we will resume home BP medications, and vital sign monitor (5) Chronic pain Conclusion/Plan: we will resume his home pain control regimen, pt may followup with his PCP to continue his pain management as out-pt. (6)cough pt present mild cough with sputum, no acute respiratory distress. pt Has 95% oxygen saturation on room air. Chest x-ray show no acute process. order Mucinex, and sputum culture (2) DMII (diabetes mellitus, type 2) Qualifiers: Diabetes mellitus intermediate insulin use: with intermediate use Diabetes mellitus complication status: with skin complications Diabetes mellitus complication detail: with other skin complication Qualified Code(s): E11.628 - Type 2 diabetes mellitus with other skin complications; Z79.4 - USP (current) use of insulin - Current Meds Current Meds: Current Medications Generic Name Dose Route Start Last Admin Trade Name Freq PRN Reason Stop Dose Admin Acetaminophen 650 mg 04/20/21 12:11 05/13/21 02:48 Acetaminophen 325 Mg Tablet PO 650 mg Q4HR PRN Administration Pain or Fever > 38C (100.4F) Amlodipine Besylate 10 mg 04/20/21 13:00 05/12/21 11:36 Amlodipine 5 Mg Tablet PO 10 mg DAILY [facility] Administration Clindamycin HCl 300 mg 05/05/21 17:00 05/13/21 05:53 Clindamycin 150 Mg Capsule PO 300 mg Q8HR [facility] Administration Cyclobenzaprine HCl 10 mg 04/23/21 16:33 05/13/21 02:49 Cyclobenzaprine 10 Mg Tablet PO 10 mg TID PRN Administration Spasms Diphenhydramine HCl 25 mg 05/08/21 17:31 05/13/21 00:33 Diphenhydramine 25 Mg Capsule PO 25 mg QPM PRN Administration Insomnia Enoxaparin Sodium 40 mg 05/06/21 09:00 05/12/21 11:15 Enoxaparin 40 Mg/0.4 Ml Syringe SUBQ 40 mg DAILY [facility] Administration Ferrous Sulfate 325 mg 04/22/21 09:00 05/12/21 11:08 Ferrous Sulfate 325 Mg Tablet PO 325 mg Q48H [facility] Administration Gabapentin 300 mg 04/20/21 13:00 05/12/21 21:47 Gabapentin 300 Mg Capsule PO 300 mg BID [facility] Administration Guaifenesin 600 mg 05/12/21 13:00 05/12/21 21:48 Guaifenesin 600 Mg Tablet PO 600 mg BID [facility] Administration Hydralazine HCl 100 mg 04/20/21 14:00 05/13/21 05:52 Hydralazine 25 Mg Tablet PO 100 mg TID [facility] Administration Ibuprofen 400 mg 05/06/21 20:27 05/13/21 05:53 Ibuprofen 400 Mg Tablet PO 400 mg Q6HR PRN Administration PAIN Insulin Aspart 2 - 10 unit 05/09/21 17:00 05/13/21 08:23 Insulin Aspart 300 Unit/3 Ml Pen SUBQ Not Given 0800,1200,1700,2100 [facility] Protocol Insulin Glargine 18 unit 04/29/21 21:00 05/12/21 21:54 Insulin Glargine 300 Unit/3 Ml Pen SUBQ 18 unit QPM [facility] Administration Lisinopril 40 mg 04/20/21 13:00 05/12/21 11:06 Lisinopril 20 Mg Tablet PO 40 mg DAILY [facility] Administration Morphine Sulfate 15 mg 05/05/21 15:21 05/13/21 04:42 Morphine Er 15 Mg Tablet PO 15 mg Q4HR PRN Administration PAIN Multivitamins/Minerals 1 tab 04/21/21 08:00 05/12/21 11:08 Multivitamin W/Minerals Tablet PO 1 tab DAILYWM [facility] Administration Oxycodone HCl 15 mg 04/20/21 12:27 05/13/21 02:49 Oxycodone 5 Mg Tablet PO 15 mg Q4HR PRN Administration PAIN Pantoprazole Sodium 40 mg 04/20/21 16:00 05/13/21 05:53 Pantoprazole 40 Mg Tablet PO 40 mg BIDAC [facility] Administration Polyethylene Glycol 17 gm 04/20/21 12:19 05/12/21 01:39 Polyethylene Glycol 3350 17 Gm Packet PO 17 gm DAILY PRN Administration CONSTIPATION Saccharomyces Boulardii 500 mg 05/05/21 17:00 05/12/21 11:11 Saccharomyces Boulardii 250 Mg Capsule PO 500 mg BIDWM [facility] Administration Sodium Chloride 10 ml 05/09/21 09:00 05/13/21 00:35 Sodium Chloride Flush 0.9% 10 Ml Syringe IVP 10 ml 0100,0900,1700 [facility] Administration Tamsulosin HCl 0.4 mg 04/20/21 13:00 05/12/21 11:09 Tamsulosin 0.4 Mg Capsule PO Not Given DAILY [facility] Throat Lozenges 1 lozenge 05/12/21 22:05 05/12/21 22:51 Benzocaine/Menthol Lozenge MM 1 lozenge Q2HR PRN Administration Mouth Sore Pain Zinc Oxide 1 gm 04/21/21 23:45 05/12/21 21:49 Cod Liver Oil/Zinc Oxide 113 Gm Tube TOP Not Given BID [facility] - Lab Result Fish Bone Diagrams: 05/06/21 06:41 05/06/21 06:41 - Additional Planning My Orders: My Active Orders 05/12/21 13:00 guaiFENesin [Mucinex] 600 mg PO BID Subjective - Subjective Patient Reports: Feeling Better, Resting Comfortably Objective Vital Signs: Vital Signs - 24 hr 05/12/21 05/13/21 05/13/21 21:45 05:54 07:34 Temperature 36.6 C Heart Rate [ 67 65 66 Brachial] Respiratory 18 Rate Blood Pressure 163/58 H 165/63 H 166/70 H [Left Brachial artery] O2 Saturation 97 Oxygen O2 Source Room air I&O (Last 24 Hrs): Intake and Output Totals x24h 05/11/21 05/12/21 05/13/21 23:59 23:59 23:59 Intake Total 2690 2530 Balance 2690 2530 General: Alert, Oriented x3, Cooperative, No acute distress HEENT: Atraumatic Neck: Supple Lymphatic: no adenopathy Neuro: Alert, Non Focal, Oriented Times 3 Cardiovascular: Regular rate, Normal S1, Normal S2 Respiratory: Chest non-tender, No respiratory distress Abdomen: Normal bowel sounds, Soft Extremities: Normal pulses, Other (slight erythema at left seconed toe. surgery site of first toe is healing.) - Results Results: Laboratory Results WBC 7.6 x10^3/uL (4.8-10.8) 05/06/21 06:41 RBC 3.96 10^6/uL (4.70-6.10) L 05/06/21 06:41 Hgb 10.5 g/dL (14.0-18.0) L 05/06/21 06:41 Hct 32.8 % (42.0-52.0) L 05/06/21 06:41 MCV 82.8 fL (80.0-94.0) 05/06/21 06:41 MCH 26.5 pg (27.0-31.0) L 05/06/21 06:41 MCHC 32.0 g/dL (32.0-36.0) 05/06/21 06:41 RDW 15.4 % (12.0-15.0) H 05/06/21 06:41 Plt Count 309 10^3/uL (130-450) 05/06/21 06:41 MPV 10.1 fL (7.4-11.4) 05/06/21 06:41 Neut # (Auto) 5.4 10^3/uL (1.5-6.6) 05/06/21 06:41 Lymph # (Auto) 1.2 10^3/uL (1.5-3.5) L 05/06/21 06:41 [place] # (Auto) 0.7 10^3/uL (0.0-1.0) 05/06/21 06:41 Eos # (Auto) 0.3 10^3/uL (0.0-0.7) 05/06/21 06:41 Baso # (Auto) 0.1 10^3/uL (0.0-0.1) 05/06/21 06:41 Absolute Nucleated RBC 0.00 x10^3/uL 05/06/21 06:41 Nucleated RBC % 0.0 /100WBC 05/06/21 06:41 Sodium 134 mmol/L (135-145) L 05/06/21 06:41 Potassium 4.7 mmol/L (3.5-5.0) 05/06/21 06:41 Chloride 96 mmol/L (101-111) L 05/06/21 06:41 Carbon Dioxide 29 mmol/L (21-32) 05/06/21 06:41 Anion Gap 9.0 (6-13) 05/06/21 06:41 BUN 26 mg/dL (6-20) H 05/06/21 06:41 Creatinine 0.9 mg/dL (0.6-1.2) 05/06/21 06:41 Estimated GFR (MDRD) 83 (>89) L 05/06/21 06:41 Glucose 110 mg/dL (70-100) H 05/06/21 06:41 POC Whole Bld Glucose 89 mg/dL (70 - 100) 05/13/21 07:28 Estimat Average Glucose 177 mg/dL (70-100) H 05/06/21 06:41 Hemoglobin A1c % 7.8 % (4.27-6.07) H 05/06/21 06:41 Lactic Acid 0.8 mmol/L (0.5-2.2) 05/05/21 14:40 Calcium 9.1 mg/dL (8.5-10.3) 05/06/21 06:41 Total Bilirubin 0.5 mg/dL (0.2-1.0) 04/19/21 18:17 AST 21 IU/L (10-42) 04/19/21 18:17 ALT 23 IU/L (10-60) 04/19/21 18:17 Alkaline Phosphatase 77 IU/L (42-121) 04/19/21 18:17 Total Protein 8.3 g/dL (6.7-8.2) H 04/19/21 18:17 Albumin 4.1 g/dL (3.2-5.5) 04/19/21 18:17 Globulin 4.2 g/dL (2.1-4.2) 04/19/21 18:17 Albumin/Globulin Ratio 1.0 (1.0-2.2) 04/19/21 18:17 Lipase 25 U/L (22-51) 04/19/21 18:17 Nasal Adenovirus (PCR) NOT DETECTED 05/05/21 15:05 Nasal B. parapertussis DNA (PCR) NOT DETECTED 05/05/21 15:05 Nasal Coronavir 229E PCR NOT DETECTED 05/05/21 15:05 Nasal Coronavir HKU1 PCR NOT DETECTED 05/05/21 15:05 Nasal Coronavir NL63 PCR NOT DETECTED 05/05/21 15:05 Nasal Coronavir OC43 PCR NOT DETECTED 05/05/21 15:05 Nasal Enterovir/Rhinovir PCR DETECTED A 05/05/21 15:05 Nasal Influenza B PCR NOT DETECTED 05/05/21 15:05 Nasal Influenza A PCR NOT DETECTED 05/05/21 15:05 Nasal Parainfluen 1 PCR NOT DETECTED 05/05/21 15:05 Nasal Parainfluen 2 PCR NOT DETECTED 05/05/21 15:05 Nasal Parainfluen 3 PCR NOT DETECTED 05/05/21 15:05 Nasal Parainfluen 4 PCR NOT DETECTED 05/05/21 15:05 Nasal RSV (PCR) NOT DETECTED 05/05/21 15:05 Nasal B.pertussis DNA PCR NOT DETECTED 05/05/21 15:05 Nasal C.pneumoniae (PCR) NOT DETECTED 05/05/21 15:05 Javi Human Metapneumo PCR NOT DETECTED 05/05/21 15:05 Nasal M.pneumoniae (PCR) NOT DETECTED 05/05/21 15:05 Nasal SARS-CoV-2 (PCR) NOT DETECTED 05/05/21 15:05 Group A Strep Rapid Negative (Negative) 05/01/21 08:40 ABX Reporting Has patient been on IV antibiotics over the past 48 hours?: Yes Current Medications - Current Medications Current Medications: Active Medications Acetaminophen (Acetaminophen 325 Mg Tablet) 650 mg PO Q4HR PRN PRN Reason: Pain or Fever > 38C (100.4F) Last Admin: 05/13/21 08:39 Dose: 650 mg Documented by: Amlodipine Besylate (Amlodipine 5 Mg Tablet) 10 mg PO DAILY [facility] Last Admin: 05/13/21 08:40 Dose: 10 mg Documented by: Benzocaine (Benzocaine [place]) 1 sprays MM Q6HR PRN PRN Reason: Mouth Sore Pain Clindamycin HCl (Clindamycin 150 Mg Capsule) 300 mg PO Q8HR [facility] Last Admin: 05/13/21 05:53 Dose: 300 mg Documented by: Cyclobenzaprine HCl (Cyclobenzaprine 10 Mg Tablet) 10 mg PO TID PRN PRN Reason: Spasms Last Admin: 05/13/21 02:49 Dose: 10 mg Documented by: Diphenhydramine HCl (Diphenhydramine 25 Mg Capsule) 25 mg PO QPM PRN PRN Reason: Insomnia Last Admin: 05/13/21 00:33 Dose: 25 mg Documented by: Enoxaparin Sodium (Enoxaparin 40 Mg/0.4 Ml Syringe) 40 mg SUBQ DAILY [facility] Last Admin: 05/13/21 08:42 Dose: 40 mg Documented by: Ferrous Sulfate (Ferrous Sulfate 325 Mg Tablet) 325 mg PO Q48H [facility] Last Admin: 05/12/21 11:08 Dose: 325 mg Documented by: Gabapentin (Gabapentin 300 Mg Capsule) 300 mg PO BID [facility] Last Admin: 05/13/21 08:43 Dose: 300 mg Documented by: Guaifenesin (Guaifenesin 600 Mg Tablet) 600 mg PO BID [facility] Last Admin: 05/13/21 08:42 Dose: 600 mg Documented by: Hydralazine HCl (Hydralazine 25 Mg Tablet) 100 mg PO TID [facility] Last Admin: 05/13/21 05:52 Dose: 100 mg Documented by: Ibuprofen (Ibuprofen 400 Mg Tablet) 400 mg PO Q6HR PRN PRN Reason: PAIN Last Admin: 05/13/21 05:53 Dose: 400 mg Documented by: Insulin Aspart (Insulin Aspart 300 Unit/3 Ml Pen) 2 - 10 unit SUBQ 08 00,1200,1700,2100 [facility]; Protocol Last Admin: 05/13/21 08:23 Dose: Not Given Documented by: Insulin Glargine (Insulin Glargine 300 Unit/3 Ml Pen) 15 unit SUBQ QPM [facility] Lisinopril (Lisinopril 20 Mg Tablet) 40 mg PO DAILY [facility] Last Admin: 05/13/21 08:41 Dose: 40 mg Documented by: Morphine Sulfate (Morphine Er 15 Mg Tablet) 15 mg PO Q4HR PRN PRN Reason: PAIN Last Admin: 05/13/21 04:42 Dose: 15 mg Documented by: Multivitamins/Minerals (Multivitamin W/Minerals Tablet) 1 tab PO DAILYWM [facility] Last Admin: 05/13/21 08:42 Dose: 1 tab Documented by: Ondansetron HCl (Ondansetron 4 Mg/2 Ml Vial) 4 mg IVP Q6HR PRN PRN Reason: Nausea / Vomiting Oxycodone HCl (Oxycodone 5 Mg Tablet) 15 mg PO Q4HR PRN PRN Reason: PAIN Last Admin: 05/13/21 08:39 Dose: 15 mg Documented by: Pantoprazole Sodium (Pantoprazole 40 Mg Tablet) 40 mg PO BIDAC [facility] Last Admin: 05/13/21 05:53 Dose: 40 mg Documented by: Polyethylene Glycol (Polyethylene Glycol 3350 17 Gm Packet) 17 gm PO DAILY PRN PRN Reason: CONSTIPATION Last Admin: 05/12/21 01:39 Dose: 17 gm Documented by: Saccharomyces Boulardii (Saccharomyces Boulardii 250 Mg Capsule) 500 mg PO BIDWM [facility] Last Admin: 05/13/21 08:38 Dose: 500 mg Documented by: Sodium Chloride (Sodium Chloride Flush 0.9% 10 Ml Syringe) 10 ml IVP 0100,09 00,1700 [facility] Last Admin: 05/13/21 08:43 Dose: 10 ml Documented by: Sodium Chloride (Sodium Chloride Flush 0.9% 10 Ml Syringe) 10 ml IVP PRN PRN PRN Reason: Per Line Care protocol Tamsulosin HCl (Tamsulosin 0.4 Mg Capsule) 0.4 mg PO DAILY [facility] Last Admin: 05/13/21 08:42 Dose: 0.4 mg Documented by: Throat Lozenges (Benzocaine/Menthol Lozenge) 1 lozenge MM Q2HR PRN PRN Reason: Mouth Sore Pain Last Admin: 05/12/21 22:51 Dose: 1 lozenge Documented by: Zinc Oxide (Cod Liver Oil/Zinc Oxide 113 Gm Tube) 1 gm TOP BID [facility] Last Admin: 05/12/21 21:49 Dose: Not Given Documented by: Acetaminophen [Tylenol] 650 mg PO Q4HR PRN 04/19/21 Amlodipine Besylate [Norvasc] 10 mg PO DAILY 04/19/21 Carisoprodol [Soma] 350 mg PO DAILY PRN 04/19/21 Ferrous Sulfate 325 mg PO DAILY 04/19/21 Gabapentin [Neurontin] 300 mg PO BID 04/19/21 Hydralazine HCl 100 mg PO TID 04/19/21 Insulin Glargine [Lantus Solostar] 15 unit SQ HS 04/19/21 Lisinopril [Zestril] 40 mg PO DAILY 04/19/21 Melatonin 3 mg PO HS 04/19/21 Morphine ER [Morphine Sulfate ER] 15 mg PO Q4HR PRN 04/19/21 Multivit with Iron,Minerals [Complete Senior] 1 each PO DAILY 04/19/21 Naloxone HCl [Narcan] 4 mg NS PRN PRN 04/19/21 Oxycodone HCl [Roxicodone] 15 mg PO Q4HR PRN 04/19/21 Pantoprazole [Protonix] 40 mg PO DAILY 04/19/21 Tamsulosin [Flomax] 0.4 mg PO DAILY 04/19/21 polyethylene glycoL 3350 [Miralax] 17 gm PO DAILY PRN 04/19/21
[2021-05-13] MEDS: lisinopriL 20 MG TABLET PO SCH (08:41)
[2021-05-13] MEDS: ENOXAPARIN 40 MG/0.4 ML SYRINGE SUBQ SCH (08:42)
[2021-05-13] MEDS: guaiFENesin 600 MG TABLET PO SCH ×2 (08:42→21:44)
[2021-05-13] MEDS: TAMSULOSIN 0.4 MG CAPSULE PO SCH (08:42)
[2021-05-13] MEDS: MULTIVITAMIN W/MINERALS TABLET PO SCH (08:42)
[2021-05-13] MEDS: GABAPENTIN 300 MG CAPSULE PO SCH ×2 (08:43→21:44)
[2021-05-13] MEDS: COD LIVER OIL/ZINC OXIDE 113 GM TUBE TOP SCH ×2 (08:44→21:42)
[2021-05-13] MEDS: polyethylene glycoL 3350 17 GM PACKET PO PRN (11:56)
[2021-05-13] MEDS: INSULIN GLARGINE 300 UNIT/3 ML PEN SUBQ SCH (21:45)
[2021-05-14] MEDS: ACETAMINOPHEN 325 MG TABLET PO PRN ×5 (01:02→21:16)
[2021-05-14] MEDS: oxyCODONE 5 MG TABLET PO PRN ×5 (01:02→21:16)
[2021-05-14] MEDS: SODIUM CHLORIDE FLUSH 0.9% 10 ML SYRINGE IVP SCH ×3 (01:05→16:33)
[2021-05-14] MEDS: hydrALAZINE 25 MG TABLET PO SCH ×3 (05:32→21:16)
[2021-05-14] MEDS: MORPHINE ER 15 MG TABLET PO PRN ×3 (05:32→18:48)
[2021-05-14] MEDS: CYCLOBENZAPRINE 10 MG TABLET PO PRN (05:32)
[2021-05-14] MEDS: PANTOPRAZOLE 40 MG TABLET PO SCH ×2 (05:32→16:34)
[2021-05-14] MEDS: CLINDAMYCIN 150 MG CAPSULE PO SCH ×3 (05:32→21:16)
--- NOTE | 2021-05-14 07:17 | PROVIDER PROGRESS NOTE ---
Assessment/Plan - Problem List (1) Cellulitis Qualifiers: Site of cellulitis: extremity Site of cellulitis of extremity: toe Laterality: left Qualified Code(s): L03.032 - Cellulitis of left toe Assessment/Plan: Wound site healing well. On clindamycin 300 mg p.o. every 8 hours. Patient is able to do his own wound dressing. Awaiting placement. (2) Chronic pain Assessment/Plan: On gabapentin, morphine, oxycodone and ibuprofen p.o. as needed (3) DMII (diabetes mellitus, type 2) Qualifiers: Diabetes mellitus director of tax services insulin use: with shelter use Diabetes mellitus complication status: with skin complications Diabetes mellitus complication detail: with other skin complication Qualified Code(s): E11.628 - Type 2 diabetes mellitus with other skin complications; Z79.4 - wheel lacer and truer (current) use of insulin Assessment/Plan: Lantus 18 units subcu every afternoon. Sliding scale insulin. Accu-Cheks before every meal and at bedtime. (4) HTN (hypertension) Assessment/Plan: Low the pain and hydralazine p.o. - Current Meds Current Meds: Current Medications Generic Name Dose Route Start Last Admin Trade Name Freq PRN Reason Stop Dose Admin Acetaminophen 650 mg 04/20/21 12:11 05/14/21 06:52 Acetaminophen 325 Mg Tablet PO 650 mg Q4HR PRN Administration Pain or Fever > 38C (100.4F) Amlodipine Besylate 10 mg 04/20/21 13:00 05/13/21 08:40 Amlodipine 5 Mg Tablet PO 10 mg DAILY MANJEET Administration Clindamycin HCl 300 mg 05/05/21 17:00 05/14/21 05:32 Clindamycin 150 Mg Capsule PO 300 mg Q8HR MANJEET Administration Cyclobenzaprine HCl 10 mg 04/23/21 16:33 05/14/21 05:32 Cyclobenzaprine 10 Mg Tablet PO 10 mg TID PRN Administration Spasms Diphenhydramine HCl 25 mg 05/08/21 17:31 05/13/21 00:33 Diphenhydramine 25 Mg Capsule PO 25 mg QPM PRN Administration Insomnia Enoxaparin Sodium 40 mg 05/06/21 09:00 05/13/21 08:42 Enoxaparin 40 Mg/0.4 Ml Syringe SUBQ 40 mg DAILY MANJEET Administration Ferrous Sulfate 325 mg 04/22/21 09:00 05/12/21 11:08 Ferrous Sulfate 325 Mg Tablet PO 325 mg Q48H MANJEET Administration Gabapentin 300 mg 04/20/21 13:00 05/13/21 21:44 Gabapentin 300 Mg Capsule PO 300 mg BID MANJEET Administration Guaifenesin 600 mg 05/12/21 13:00 05/13/21 21:44 Guaifenesin 600 Mg Tablet PO 600 mg BID MANJEET Administration Hydralazine HCl 100 mg 04/20/21 14:00 05/14/21 05:32 Hydralazine 25 Mg Tablet PO 100 mg TID MANJEET Administration Ibuprofen 400 mg 05/06/21 20:27 05/13/21 21:43 Ibuprofen 400 Mg Tablet PO 400 mg Q6HR PRN Administration PAIN Insulin Aspart 2 - 10 unit 05/09/21 17:00 05/13/21 21:45 Insulin Aspart 300 Unit/3 Ml Pen SUBQ 2 unit 0800,1200,1700,2100 MANJEET Administration Protocol Insulin Glargine 15 unit 05/13/21 21:00 05/13/21 21:45 Insulin Glargine 300 Unit/3 Ml Pen SUBQ 15 unit QPM MANJEET Administration Lisinopril 40 mg 04/20/21 13:00 05/13/21 08:41 Lisinopril 20 Mg Tablet PO 40 mg DAILY MANJEET Administration Morphine Sulfate 15 mg 05/05/21 15:21 05/14/21 05:32 Morphine Er 15 Mg Tablet PO 15 mg Q4HR PRN Administration PAIN Multivitamins/Minerals 1 tab 04/21/21 08:00 05/13/21 08:42 Multivitamin W/Minerals Tablet PO 1 tab DAILYWM MANJEET Administration Oxycodone HCl 15 mg 04/20/21 12:27 05/14/21 06:52 Oxycodone 5 Mg Tablet PO 15 mg Q4HR PRN Administration PAIN Pantoprazole Sodium 40 mg 04/20/21 16:00 05/14/21 05:32 Pantoprazole 40 Mg Tablet PO 40 mg BIDAC MANJEET Administration Polyethylene Glycol 17 gm 04/20/21 12:19 05/13/21 11:56 Polyethylene Glycol 3350 17 Gm Packet PO 17 gm DAILY PRN Administration CONSTIPATION Saccharomyces Boulardii 500 mg 05/05/21 17:00 05/13/21 16:28 Saccharomyces Boulardii 250 Mg Capsule PO 500 mg BIDWM MANJEET Administration Sodium Chloride 10 ml 05/09/21 09:00 05/14/21 01:05 Sodium Chloride Flush 0.9% 10 Ml Syringe IVP 10 ml 0100,0900,1700 MANJEET Administration Tamsulosin HCl 0.4 mg 04/20/21 13:00 05/13/21 08:42 Tamsulosin 0.4 Mg Capsule PO 0.4 mg DAILY MANJEET Administration Throat Lozenges 1 lozenge 05/12/21 22:05 05/12/21 22:51 Benzocaine/Menthol Lozenge MM 1 lozenge Q2HR PRN Administration Mouth Sore Pain Zinc Oxide 1 gm 04/21/21 23:45 05/13/21 21:42 Cod Liver Oil/Zinc Oxide 113 Gm Tube TOP 1 applic BID MANJEET Administration - Lab Result Fish Bone Diagrams: 05/06/21 06:41 05/06/21 06:41 Subjective - Subjective Patient Reports: Other (Patient was in his wheelchair at the time of exam. Reports generalized chronic pain. Reports nonproductive cough.) Objective Vital Signs: Vital Signs - 24 hr 05/13/21 05/13/21 05/13/21 07:34 13:25 21:42 Temperature 36.6 C Heart Rate [ 66 71 66 Brachial] Respiratory 18 Rate Blood Pressure 166/70 H 163/64 H 168/57 H [Left Brachial artery] O2 Saturation 97 05/14/21 05:34 Temperature Heart Rate [ 72 Brachial] Respiratory Rate Blood Pressure 155/96 H [Left Brachial artery] O2 Saturation Oxygen O2 Source Room air I&O (Last 24 Hrs): Intake and Output Totals x24h 05/12/21 05/13/21 05/14/21 23:59 23:59 23:59 Intake Total 2530 1570 Balance 2530 1570 Comments/Notes: General: Alert, Oriented x3, Mild distress HEENT: PERRLA, EOMI Neck: Supple, No JVD Neuro: Alert, Non Focal, Oriented Times 3 Cardiovascular: Regular rate Respiratory: Chest non-tender, No respiratory distress, Breath sounds nml Abdomen: Normal bowel sounds, Soft, No tenderness, No masses Extremities: No clubbing, No edema Skin: No rashes Comments/Notes: Wound site on left great toe and second toe appears to be healing well. There is no drainage from site. Minimal redness. - Results Results: Laboratory Results WBC 7.6 x10^3/uL (4.8-10.8) 05/06/21 06:41 RBC 3.96 10^6/uL (4.70-6.10) L 05/06/21 06:41 Hgb 10.5 g/dL (14.0-18.0) L 05/06/21 06:41 Hct 32.8 % (42.0-52.0) L 05/06/21 06:41 MCV 82.8 fL (80.0-94.0) 05/06/21 06:41 MCH 26.5 pg (27.0-31.0) L 05/06/21 06:41 MCHC 32.0 g/dL (32.0-36.0) 05/06/21 06:41 RDW 15.4 % (12.0-15.0) H 05/06/21 06:41 Plt Count 309 10^3/uL (130-450) 05/06/21 06:41 MPV 10.1 fL (7.4-11.4) 05/06/21 06:41 Neut # (Auto) 5.4 10^3/uL (1.5-6.6) 05/06/21 06:41 Lymph # (Auto) 1.2 10^3/uL (1.5-3.5) L 05/06/21 06:41 [place] # (Auto) 0.7 10^3/uL (0.0-1.0) 05/06/21 06:41 Eos # (Auto) 0.3 10^3/uL (0.0-0.7) 05/06/21 06:41 Baso # (Auto) 0.1 10^3/uL (0.0-0.1) 05/06/21 06:41 Absolute Nucleated RBC 0.00 x10^3/uL 05/06/21 06:41 Nucleated RBC % 0.0 /100WBC 05/06/21 06:41 Sodium 134 mmol/L (135-145) L 05/06/21 06:41 Potassium 4.7 mmol/L (3.5-5.0) 05/06/21 06:41 Chloride 96 mmol/L (101-111) L 05/06/21 06:41 Carbon Dioxide 29 mmol/L (21-32) 05/06/21 06:41 Anion Gap 9.0 (6-13) 05/06/21 06:41 BUN 26 mg/dL (6-20) H 05/06/21 06:41 Creatinine 0.9 mg/dL (0.6-1.2) 05/06/21 06:41 Estimated GFR (MDRD) 83 (>89) L 05/06/21 06:41 Glucose 110 mg/dL (70-100) H 05/06/21 06:41 POC Whole Bld Glucose 163 mg/dL (70 - 100) H 05/13/21 20:39 Estimat Average Glucose 177 mg/dL (70-100) H 05/06/21 06:41 Hemoglobin A1c % 7.8 % (4.27-6.07) H 05/06/21 06:41 Lactic Acid 0.8 mmol/L (0.5-2.2) 05/05/21 14:40 Calcium 9.1 mg/dL (8.5-10.3) 05/06/21 06:41 Total Bilirubin 0.5 mg/dL (0.2-1.0) 04/19/21 18:17 AST 21 IU/L (10-42) 04/19/21 18:17 ALT 23 IU/L (10-60) 04/19/21 18:17 Alkaline Phosphatase 77 IU/L (42-121) 04/19/21 18:17 Total Protein 8.3 g/dL (6.7-8.2) H 04/19/21 18:17 Albumin 4.1 g/dL (3.2-5.5) 04/19/21 18:17 Globulin 4.2 g/dL (2.1-4.2) 04/19/21 18:17 Albumin/Globulin Ratio 1.0 (1.0-2.2) 04/19/21 18:17 Lipase 25 U/L (22-51) 04/19/21 18:17 Nasal Adenovirus (PCR) NOT DETECTED 05/05/21 15:05 Nasal B. parapertussis DNA (PCR) NOT DETECTED 05/05/21 15:05 Nasal Coronavir 229E PCR NOT DETECTED 05/05/21 15:05 Nasal Coronavir HKU1 PCR NOT DETECTED 05/05/21 15:05 Nasal Coronavir NL63 PCR NOT DETECTED 05/05/21 15:05 Nasal Coronavir OC43 PCR NOT DETECTED 05/05/21 15:05 Nasal Enterovir/Rhinovir PCR DETECTED A 05/05/21 15:05 Nasal Influenza B PCR NOT DETECTED 05/05/21 15:05 Nasal Influenza A PCR NOT DETECTED 05/05/21 15:05 Nasal Parainfluen 1 PCR NOT DETECTED 05/05/21 15:05 Nasal Parainfluen 2 PCR NOT DETECTED 05/05/21 15:05 Nasal Parainfluen 3 PCR NOT DETECTED 05/05/21 15:05 Nasal Parainfluen 4 PCR NOT DETECTED 05/05/21 15:05 Nasal RSV (PCR) NOT DETECTED 05/05/21 15:05 Nasal B.pertussis DNA PCR NOT DETECTED 05/05/21 15:05 Nasal C.pneumoniae (PCR) NOT DETECTED 05/05/21 15:05 Javi Human Metapneumo PCR NOT DETECTED 05/05/21 15:05 Nasal M.pneumoniae (PCR) NOT DETECTED 05/05/21 15:05 Nasal SARS-CoV-2 (PCR) NOT DETECTED 05/05/21 15:05 Group A Strep Rapid Negative (Negative) 05/01/21 08:40 ABX Reporting Has patient been on IV antibiotics over the past 48 hours?: No
[2021-05-14] MEDS: INSULIN ASPART 300 UNIT/3 ML PEN SUBQ SCH ×4 (07:32→21:20)
[2021-05-14] MEDS: amLODIPine 5 MG TABLET PO SCH (08:07)
[2021-05-14] MEDS: lisinopriL 20 MG TABLET PO SCH (08:07)
[2021-05-14] MEDS: GABAPENTIN 300 MG CAPSULE PO SCH ×2 (08:09→21:17)
[2021-05-14] MEDS: ENOXAPARIN 40 MG/0.4 ML SYRINGE SUBQ SCH (08:09)
[2021-05-14] MEDS: TAMSULOSIN 0.4 MG CAPSULE PO SCH (08:09)
[2021-05-14] MEDS: MULTIVITAMIN W/MINERALS TABLET PO SCH (08:09)
[2021-05-14] MEDS: SACCHAROMYCES BOULARDII 250 MG CAPSULE PO SCH ×2 (08:09→16:34)
[2021-05-14] MEDS: IBUPROFEN 400 MG TABLET PO PRN ×2 (08:09→18:48)
[2021-05-14] MEDS: guaiFENesin 600 MG TABLET PO SCH ×2 (08:09→21:17)
[2021-05-14] MEDS: FERROUS SULFATE 325 MG TABLET PO SCH (08:12)
[2021-05-14] MEDS: COD LIVER OIL/ZINC OXIDE 113 GM TUBE TOP SCH ×2 (08:15→21:14)
[2021-05-14] MEDS: polyethylene glycoL 3350 17 GM PACKET PO PRN (21:15)
[2021-05-14] MEDS: INSULIN GLARGINE 300 UNIT/3 ML PEN SUBQ SCH (21:20)
[2021-05-15] MEDS: IBUPROFEN 400 MG TABLET PO PRN ×4 (00:52→22:03)
[2021-05-15] MEDS: MORPHINE ER 15 MG TABLET PO PRN ×6 (00:52→22:03)
[2021-05-15] MEDS: SODIUM CHLORIDE FLUSH 0.9% 10 ML SYRINGE IVP SCH ×3 (01:05→16:53)
[2021-05-15] MEDS: oxyCODONE 5 MG TABLET PO PRN ×5 (02:02→21:02)
[2021-05-15] MEDS: ACETAMINOPHEN 325 MG TABLET PO PRN ×5 (02:02→21:02)
[2021-05-15] MEDS: CLINDAMYCIN 150 MG CAPSULE PO SCH ×3 (06:14→21:01)
[2021-05-15] MEDS: hydrALAZINE 25 MG TABLET PO SCH ×3 (06:15→21:02)
[2021-05-15] MEDS: PANTOPRAZOLE 40 MG TABLET PO SCH ×2 (06:15→16:53)
--- NOTE | 2021-05-15 07:51 | PROVIDER PROGRESS NOTE ---
Assessment/Plan - Problem List (1) Cellulitis Qualifiers: Site of cellulitis: extremity Site of cellulitis of extremity: toe Laterality: left Qualified Code(s): L03.032 - Cellulitis of left toe Assessment/Plan: Wound site healing well. On clindamycin 300 mg p.o. every 8 hours. Patient is able to do his own wound dressing. Awaiting placement. Likely discharge on 05/16/21 (2) Chronic pain Assessment/Plan: On gabapentin, morphine, oxycodone and ibuprofen p.o. 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 Sliding scale insulin. Accu-Cheks before every meal and at bedtime. (4) HTN (hypertension) Assessment/Plan: Low the pain and hydralazine p.o. (3) DMII (diabetes mellitus, type 2) Qualifiers: Diabetes mellitus manager intermediate insulin use: with shelter use Diabetes mellitus complication status: with skin complications Diabetes mellitus complication detail: with other skin complication Qualified Code(s): E11.628 - Type 2 diabetes mellitus with other skin complications; Z79.4 - jail (current) use of insulin - Current Meds Current Meds: Current Medications Generic Name Dose Route Start Last Admin Trade Name Freq PRN Reason Stop Dose Admin Acetaminophen 650 mg 04/20/21 12:11 05/15/21 06:14 Acetaminophen 325 Mg Tablet PO 650 mg Q4HR PRN Administration Pain or Fever > 38C (100.4F) Amlodipine Besylate 10 mg 04/20/21 13:00 05/14/21 08:07 Amlodipine 5 Mg Tablet PO 10 mg DAILY MANJEET Administration Clindamycin HCl 300 mg 05/05/21 17:00 05/15/21 06:14 Clindamycin 150 Mg Capsule PO 300 mg Q8HR MANJEET Administration Cyclobenzaprine HCl 10 mg 04/23/21 16:33 05/14/21 05:32 Cyclobenzaprine 10 Mg Tablet PO 10 mg TID PRN Administration Spasms Diphenhydramine HCl 25 mg 05/08/21 17:31 05/13/21 00:33 Diphenhydramine 25 Mg Capsule PO 25 mg QPM PRN Administration Insomnia Enoxaparin Sodium 40 mg 05/06/21 09:00 05/14/21 08:09 Enoxaparin 40 Mg/0.4 Ml Syringe SUBQ 40 mg DAILY MANJEET Administration Ferrous Sulfate 325 mg 04/22/21 09:00 05/14/21 08:12 Ferrous Sulfate 325 Mg Tablet PO 325 mg Q48H MANJEET Administration Gabapentin 300 mg 04/20/21 13:00 05/14/21 21:17 Gabapentin 300 Mg Capsule PO 300 mg BID MANJEET Administration Guaifenesin 600 mg 05/12/21 13:00 05/14/21 21:17 Guaifenesin 600 Mg Tablet PO 600 mg BID MANJEET Administration Hydralazine HCl 100 mg 04/20/21 14:00 05/15/21 06:15 Hydralazine 25 Mg Tablet PO 100 mg TID MANJEET Administration Ibuprofen 400 mg 05/06/21 20:27 05/15/21 06:57 Ibuprofen 400 Mg Tablet PO 400 mg Q6HR PRN Administration PAIN Insulin Aspart 2 - 10 unit 05/09/21 17:00 05/14/21 21:20 Insulin Aspart 300 Unit/3 Ml Pen SUBQ 2 unit 0800,1200,1700,2100 MANJEET Administration Protocol Insulin Glargine 15 unit 05/13/21 21:00 05/14/21 21:20 Insulin Glargine 300 Unit/3 Ml Pen SUBQ 15 unit QPM MANJEET Administration Lisinopril 40 mg 04/20/21 13:00 05/14/21 08:07 Lisinopril 20 Mg Tablet PO 40 mg DAILY MANJEET Administration Morphine Sulfate 15 mg 05/05/21 15:21 05/15/21 04:56 Morphine Er 15 Mg Tablet PO 15 mg Q4HR PRN Administration PAIN Multivitamins/Minerals 1 tab 04/21/21 08:00 05/14/21 08:09 Multivitamin W/Minerals Tablet PO 1 tab DAILYWM MANJEET Administration Oxycodone HCl 15 mg 04/20/21 12:27 05/15/21 06:16 Oxycodone 5 Mg Tablet PO 15 mg Q4HR PRN Administration PAIN Pantoprazole Sodium 40 mg 04/20/21 16:00 05/15/21 06:15 Pantoprazole 40 Mg Tablet PO 40 mg BIDAC MANJEET Administration Polyethylene Glycol 17 gm 04/20/21 12:19 05/14/21 21:15 Polyethylene Glycol 3350 17 Gm Packet PO 17 gm DAILY PRN Administration CONSTIPATION Saccharomyces Boulardii 500 mg 05/05/21 17:00 05/14/21 16:34 Saccharomyces Boulardii 250 Mg Capsule PO 500 mg BIDWM MANJEET Administration Sodium Chloride 10 ml 05/09/21 09:00 05/15/21 01:05 Sodium Chloride Flush 0.9% 10 Ml Syringe IVP 10 ml 0100,0900,1700 MANJEET Administration Tamsulosin HCl 0.4 mg 04/20/21 13:00 05/14/21 08:09 Tamsulosin 0.4 Mg Capsule PO 0.4 mg DAILY MANJEET Administration Throat Lozenges 1 lozenge 05/12/21 22:05 05/12/21 22:51 Benzocaine/Menthol Lozenge MM 1 lozenge Q2HR PRN Administration Mouth Sore Pain Zinc Oxide 1 gm 04/21/21 23:45 05/14/21 21:14 Cod Liver Oil/Zinc Oxide 113 Gm Tube TOP 1 applic BID MANJEET Administration - Lab Result Fish Bone Diagrams: 05/06/21 06:41 05/06/21 06:41 Subjective - Subjective Patient Reports: Other (Patient resting comfortably in bed. Denied any complaints.) Objective Vital Signs: Vital Signs - 24 hr 05/14/21 05/14/21 05/15/21 13:13 21:17 06:19 Temperature Heart Rate [ 70 67 70 Brachial] Respiratory Rate Blood Pressure 149/64 H 139/58 H 142/54 H [Left Brachial artery] O2 Saturation 05/15/21 07:37 Temperature 36.6 C Heart Rate [ 69 Brachial] Respiratory 18 Rate Blood Pressure 156/59 H [Left Brachial artery] O2 Saturation 99 Oxygen O2 Source Room air I&O (Last 24 Hrs): Intake and Output Totals x24h 05/13/21 05/14/21 05/15/21 23:59 23:59 23:59 Intake Total 1570 2720 390 Balance 1570 2720 390 Comments/Notes: General: Alert, Oriented x3, Mild distress HEENT: PERRLA, EOMI Neck: Supple, No JVD Neuro: Alert, Non Focal, Oriented Times 3 Cardiovascular: Regular rate Respiratory: Chest non-tender, No respiratory distress, Breath sounds nml Abdomen: Normal bowel sounds, Soft, No tenderness, No masses Extremities: No clubbing, No edema Skin: No rashes Comments/Notes: Wound site on left great toe and second toe appears to be healing well. There is no drainage from site. Minimal redness. - Results Results: Laboratory Results WBC 7.6 x10^3/uL (4.8-10.8) 05/06/21 06:41 RBC 3.96 10^6/uL (4.70-6.10) L 05/06/21 06:41 Hgb 10.5 g/dL (14.0-18.0) L 05/06/21 06:41 Hct 32.8 % (42.0-52.0) L 05/06/21 06:41 MCV 82.8 fL (80.0-94.0) 05/06/21 06:41 MCH 26.5 pg (27.0-31.0) L 05/06/21 06:41 MCHC 32.0 g/dL (32.0-36.0) 05/06/21 06:41 RDW 15.4 % (12.0-15.0) H 05/06/21 06:41 Plt Count 309 10^3/uL (130-450) 05/06/21 06:41 MPV 10.1 fL (7.4-11.4) 05/06/21 06:41 Neut # (Auto) 5.4 10^3/uL (1.5-6.6) 05/06/21 06:41 Lymph # (Auto) 1.2 10^3/uL (1.5-3.5) L 05/06/21 06:41 [place] # (Auto) 0.7 10^3/uL (0.0-1.0) 05/06/21 06:41 Eos # (Auto) 0.3 10^3/uL (0.0-0.7) 05/06/21 06:41 Baso # (Auto) 0.1 10^3/uL (0.0-0.1) 05/06/21 06:41 Absolute Nucleated RBC 0.00 x10^3/uL 05/06/21 06:41 Nucleated RBC % 0.0 /100WBC 05/06/21 06:41 Sodium 134 mmol/L (135-145) L 05/06/21 06:41 Potassium 4.7 mmol/L (3.5-5.0) 05/06/21 06:41 Chloride 96 mmol/L (101-111) L 05/06/21 06:41 Carbon Dioxide 29 mmol/L (21-32) 05/06/21 06:41 Anion Gap 9.0 (6-13) 05/06/21 06:41 BUN 26 mg/dL (6-20) H 05/06/21 06:41 Creatinine 0.9 mg/dL (0.6-1.2) 05/06/21 06:41 Estimated GFR (MDRD) 83 (>89) L 05/06/21 06:41 Glucose 110 mg/dL (70-100) H 05/06/21 06:41 POC Whole Bld Glucose 108 mg/dL (70 - 100) H 05/15/21 07:32 Estimat Average Glucose 177 mg/dL (70-100) H 05/06/21 06:41 Hemoglobin A1c % 7.8 % (4.27-6.07) H 05/06/21 06:41 Lactic Acid 0.8 mmol/L (0.5-2.2) 05/05/21 14:40 Calcium 9.1 mg/dL (8.5-10.3) 05/06/21 06:41 Total Bilirubin 0.5 mg/dL (0.2-1.0) 04/19/21 18:17 AST 21 IU/L (10-42) 04/19/21 18:17 ALT 23 IU/L (10-60) 04/19/21 18:17 Alkaline Phosphatase 77 IU/L (42-121) 04/19/21 18:17 Total Protein 8.3 g/dL (6.7-8.2) H 04/19/21 18:17 Albumin 4.1 g/dL (3.2-5.5) 04/19/21 18:17 Globulin 4.2 g/dL (2.1-4.2) 04/19/21 18:17 Albumin/Globulin Ratio 1.0 (1.0-2.2) 04/19/21 18:17 Lipase 25 U/L (22-51) 04/19/21 18:17 Nasal Adenovirus (PCR) NOT DETECTED 05/05/21 15:05 Nasal B. parapertussis DNA (PCR) NOT DETECTED 05/05/21 15:05 Nasal Coronavir 229E PCR NOT DETECTED 05/05/21 15:05 Nasal Coronavir HKU1 PCR NOT DETECTED 05/05/21 15:05 Nasal Coronavir NL63 PCR NOT DETECTED 05/05/21 15:05 Nasal Coronavir OC43 PCR NOT DETECTED 05/05/21 15:05 Nasal Enterovir/Rhinovir PCR DETECTED A 05/05/21 15:05 Nasal Influenza B PCR NOT DETECTED 05/05/21 15:05 Nasal Influenza A PCR NOT DETECTED 05/05/21 15:05 Nasal Parainfluen 1 PCR NOT DETECTED 05/05/21 15:05 Nasal Parainfluen 2 PCR NOT DETECTED 05/05/21 15:05 Nasal Parainfluen 3 PCR NOT DETECTED 05/05/21 15:05 Nasal Parainfluen 4 PCR NOT DETECTED 05/05/21 15:05 Nasal RSV (PCR) NOT DETECTED 05/05/21 15:05 Nasal B.pertussis DNA PCR NOT DETECTED 05/05/21 15:05 Nasal C.pneumoniae (PCR) NOT DETECTED 05/05/21 15:05 Javi Human Metapneumo PCR NOT DETECTED 05/05/21 15:05 Nasal M.pneumoniae (PCR) NOT DETECTED 05/05/21 15:05 Nasal SARS-CoV-2 (PCR) NOT DETECTED 05/05/21 15:05 Group A Strep Rapid Negative (Negative) 05/01/21 08:40 ABX Reporting Has patient been on IV antibiotics over the past 48 hours?: No
[2021-05-15] MEDS: INSULIN ASPART 300 UNIT/3 ML PEN SUBQ SCH ×4 (08:14→21:03)
[2021-05-15] MEDS: CYCLOBENZAPRINE 10 MG TABLET PO PRN ×2 (09:26→16:53)
[2021-05-15] MEDS: amLODIPine 5 MG TABLET PO SCH (09:31)
[2021-05-15] MEDS: MULTIVITAMIN W/MINERALS TABLET PO SCH (09:31)
[2021-05-15] MEDS: SACCHAROMYCES BOULARDII 250 MG CAPSULE PO SCH ×2 (09:32→16:53)
[2021-05-15] MEDS: guaiFENesin 600 MG TABLET PO SCH ×2 (09:33→21:03)
[2021-05-15] MEDS: TAMSULOSIN 0.4 MG CAPSULE PO SCH (10:03)
[2021-05-15] MEDS: GABAPENTIN 300 MG CAPSULE PO SCH ×2 (10:04→21:02)
[2021-05-15] MEDS: lisinopriL 20 MG TABLET PO SCH (10:07)
[2021-05-15] MEDS: ENOXAPARIN 40 MG/0.4 ML SYRINGE SUBQ SCH (10:12)
[2021-05-15] MEDS: COD LIVER OIL/ZINC OXIDE 113 GM TUBE TOP SCH ×2 (10:13→21:01)
[2021-05-15] MEDS: polyethylene glycoL 3350 17 GM PACKET PO PRN (10:49)
[2021-05-15 19:04] LABS: CORONAVIRUS 229E-RESP PCR NOT DETECTED; CORONAVIRUS HKU1-RESP PCR NOT DETECTED; CORONAVIRUS NL63-RESP PCR NOT DETECTED; CORONAVIRUS OC43-RESP PCR NOT DETECTED; SARS-CoV-2 -RESP PCR PANEL NOT DETECTED
[2021-05-15 19:05] LABS: B. PARAPERTUSSIS- RESP PCR PAN NOT DETECTED; B. PERTUSSIS- RESP PCR PANEL NOT DETECTED; C. PNEUMONIAE- RESP PCR PANEL NOT DETECTED; HUMAN METAPNEUMOVIRUS NOT DETECTED; INFLUENZA A- RESP PCR PANEL NOT DETECTED; INFLUENZA B - RESP PCR PANEL NOT DETECTED; M. PNEUMONIAE- RESP PCR PANEL NOT DETECTED; PARAINFLUENZA VIRUS 1 NOT DETECTED; PARAINFLUENZA VIRUS 2 NOT DETECTED; PARAINFLUENZA VIRUS 3 NOT DETECTED; PARAINFLUENZA VIRUS 4 NOT DETECTED; RHINOVIRUS/ENTEROVIRUS DETECTED; RSV- RESP PCR PANEL NOT DETECTED
[2021-05-15] MEDS: INSULIN GLARGINE 300 UNIT/3 ML PEN SUBQ SCH (21:04)
[2021-05-16] MEDS: oxyCODONE 5 MG TABLET PO PRN ×4 (01:07→17:25)
[2021-05-16] MEDS: ACETAMINOPHEN 325 MG TABLET PO PRN ×4 (01:08→17:24)
[2021-05-16] MEDS: SODIUM CHLORIDE FLUSH 0.9% 10 ML SYRINGE IVP SCH ×3 (01:08→17:00)
[2021-05-16] MEDS: ONDANSETRON 4 MG/2 ML VIAL IVP PRN ×3 (02:23→14:04)
[2021-05-16] MEDS: MORPHINE ER 15 MG TABLET PO PRN ×3 (02:23→20:47)
[2021-05-16] MEDS: CYCLOBENZAPRINE 10 MG TABLET PO PRN (03:46)
[2021-05-16] MEDS: diphenhydrAMINE 25 MG CAPSULE PO PRN (03:46)
[2021-05-16] MEDS: IBUPROFEN 400 MG TABLET PO PRN ×3 (04:13→20:47)
[2021-05-16] MEDS: CLINDAMYCIN 150 MG CAPSULE PO SCH ×3 (05:28→20:47)
[2021-05-16] MEDS: hydrALAZINE 25 MG TABLET PO SCH ×3 (05:29→21:02)
[2021-05-16] MEDS: PANTOPRAZOLE 40 MG TABLET PO SCH ×2 (05:29→17:00)
[2021-05-16] MEDS: INSULIN ASPART 300 UNIT/3 ML PEN SUBQ SCH ×4 (07:30→21:01)
[2021-05-16] MEDS: BENZOCAINE/MENTHOL LOZENGE MM PRN (08:17)
[2021-05-16] MEDS: MULTIVITAMIN W/MINERALS TABLET PO SCH (08:19)
[2021-05-16] MEDS: SACCHAROMYCES BOULARDII 250 MG CAPSULE PO SCH ×2 (08:19→17:00)
[2021-05-16] MEDS: amLODIPine 5 MG TABLET PO SCH (08:52)
[2021-05-16] MEDS: FERROUS SULFATE 325 MG TABLET PO SCH (08:54)
[2021-05-16] MEDS: ENOXAPARIN 40 MG/0.4 ML SYRINGE SUBQ SCH (08:54)
[2021-05-16] MEDS: GABAPENTIN 300 MG CAPSULE PO SCH ×2 (08:55→20:47)
[2021-05-16] MEDS: guaiFENesin 600 MG TABLET PO SCH ×2 (08:57→20:47)
[2021-05-16] MEDS: TAMSULOSIN 0.4 MG CAPSULE PO SCH ×2 (08:57→09:05)
[2021-05-16] MEDS: COD LIVER OIL/ZINC OXIDE 113 GM TUBE TOP SCH ×2 (09:04→21:00)
[2021-05-16] MEDS: lisinopriL 20 MG TABLET PO SCH (09:10)
--- NOTE | 2021-05-16 12:03 | PROVIDER PROGRESS NOTE ---
Assessment/Plan - Problem List (1) Nausea and vomiting Assessment/Plan: 05/16 pt Report he had nausea and vomiting. He denies abdominal pain or diarrhea. pt consistently on time ask nurse give pt's pain meds for his chronic pain. It it is likely virus gastritis. we will order lab test monitor if pt's Electrolytes and dehydration status, continue Antiemesis as needed (2) Cellulitis 05/16 improved. Patient has history of diabetic feet infection and had amputation. Continue finish 14 days oral antibiotics And probiotics, x-ray of left feet does not show bone lesion or osteomyelitis. 05/13, pt report he feel good, mucinex did help his mild cough, his chronic headache is better, no other complaint. pt is pending for replacement. 05/12 continue improved. pt is happy with the progress of his left second toe cellulitis. Xray of his left foot which showed no osseous erosion is identified. we will finish 14 days PO antibiotics clindamycin with probiotics. consult with bilingual social worker for replacement. 05/11 stable, pt is comfortable sleeping at the bed, no complaints per nurse. pt has hx of chronic pain, he ask his pain meds on time per nurse report. 05/10 stable. pt had Xray of his left foot which showed no osseous erosion is identified, no suspicious bony lesion. pt is happy about the image study result. continue finish antibiotics treatment course. since pt had hx of uncontrolled diabetes foot infection and amputation from infection, expected pt had two weeks antibiotics treatment to control his infection, and continue probiotics as well. 05/09 improved, swelling is significantly reduced, erythema also reduced. continue antibiotics and probiotics. continue wound care for first toe. pt had amputation on left first toe recently. the surgery site appear no infection but need dressing change. pt's left second toe appear mild erythema, and mild swelling. pt has no fever, and Hemodynamically stable. MRI of left foot on 03/28/21 at [facility] did not reveal osteomyelitis or significant concern on his left second toe. Since pt's left second toe just appear mild erythema and mild swelling, if clinically pt still does not improve after treatment, then we may consider further image study. pt has hx of many medications allergies. we will order Clindamycin and Probiotics, lab monitor, check lactic acid, and blood culture, order CBC/BMP lab monitor. (3) DMII (diabetes mellitus, type 2) Conclusion/Plan: 05/16 glucose is good control. Continue insulin and sliding scale. 05/13 glucose is controlled, continue home insulin regimen and slide scale 05/11 controlled glucose level, continue slide scale, glucose check and Hypoglycemia protocol 05/10 good control glucose level, continue current slide scale, continue glucose check and Hypoglycemia protocol 05/09, glucose is slight elevated, will increase slide scale, continue glucose check and Hypoglycemia protocol pt had hx of uncontrolled diabetes and diabetes complication leading to amputation. resume home Lantus, ER already reconcile home lantus, add slide scale, hypoglycemia protocol, check A1C, check glucose ACHS, and carb control diet. (4) Mobility impaired Conclusion/Plan: 05/09, We will continue consult with social work for discharge planning. 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 pt may continue followup with surgeon as out-pt, we will continue dressing change, wound care, continue consult with bilingual social worker for Disposition planning. (5) HTN (hypertension) Conclusion/Plan: we will resume home BP medications, and vital sign monitor (6) Chronic pain Conclusion/Plan: we will resume his home pain control regimen, pt may followup with his PCP to continue his pain management as out-pt. - Current Meds Current Meds: Current Medications Generic Name Dose Route Start Last Admin Trade Name Freq PRN Reason Stop Dose Admin Acetaminophen 650 mg 04/20/21 12:11 05/16/21 09:03 Acetaminophen 325 Mg Tablet PO 650 mg Q4HR PRN Administration Pain or Fever > 38C (100.4F) Amlodipine Besylate 10 mg 04/20/21 13:00 05/16/21 08:52 Amlodipine 5 Mg Tablet PO 10 mg DAILY MANJEET Administration Clindamycin HCl 300 mg 05/05/21 17:00 05/16/21 05:28 Clindamycin 150 Mg Capsule PO 05/19/21 16:59 300 mg Q8HR MANJEET Administration Cyclobenzaprine HCl 10 mg 04/23/21 16:33 05/16/21 03:46 Cyclobenzaprine 10 Mg Tablet PO 10 mg TID PRN Administration Spasms Diphenhydramine HCl 25 mg 05/08/21 17:31 05/16/21 03:46 Diphenhydramine 25 Mg Capsule PO 25 mg QPM PRN Administration Insomnia Enoxaparin Sodium 40 mg 05/06/21 09:00 05/16/21 08:54 Enoxaparin 40 Mg/0.4 Ml Syringe SUBQ 40 mg DAILY MANJEET Administration Ferrous Sulfate 325 mg 04/22/21 09:00 05/16/21 08:54 Ferrous Sulfate 325 Mg Tablet PO 325 mg Q48H MANJEET Administration Gabapentin 300 mg 04/20/21 13:00 05/16/21 08:55 Gabapentin 300 Mg Capsule PO 300 mg BID MANJEET Administration Guaifenesin 600 mg 05/12/21 13:00 05/16/21 08:57 Guaifenesin 600 Mg Tablet PO 600 mg BID MANJEET Administration Hydralazine HCl 100 mg 04/20/21 14:00 05/16/21 05:29 Hydralazine 25 Mg Tablet PO 100 mg TID MANJEET Administration Ibuprofen 400 mg 05/06/21 20:27 05/16/21 10:23 Ibuprofen 400 Mg Tablet PO 400 mg Q6HR PRN Administration PAIN Insulin Aspart 2 - 10 unit 05/09/21 17:00 05/16/21 11:45 Insulin Aspart 300 Unit/3 Ml Pen SUBQ Not Given 0800,1200,1700,2100 [facility] Protocol Insulin Glargine 15 unit 05/13/21 21:00 05/15/21 21:04 Insulin Glargine 300 Unit/3 Ml Pen SUBQ 15 unit QPM MANJEET Administration Lisinopril 40 mg 04/20/21 13:00 05/16/21 09:10 Lisinopril 20 Mg Tablet PO 40 mg DAILY MANJEET Administration Morphine Sulfate 15 mg 05/05/21 15:21 05/16/21 07:51 Morphine Er 15 Mg Tablet PO 15 mg Q4HR PRN Administration PAIN Multivitamins/Minerals 1 tab 04/21/21 08:00 05/16/21 08:19 Multivitamin W/Minerals Tablet PO 1 tab DAILYWM MANJEET Administration Ondansetron HCl 4 mg 05/05/21 17:02 05/16/21 07:48 Ondansetron 4 Mg/2 Ml Vial IVP 4 mg Q6HR PRN Administration Nausea / Vomiting Oxycodone HCl 15 mg 04/20/21 12:27 05/16/21 09:10 Oxycodone 5 Mg Tablet PO 15 mg Q4HR PRN Administration PAIN Pantoprazole Sodium 40 mg 04/20/21 16:00 05/16/21 05:29 Pantoprazole 40 Mg Tablet PO 40 mg BIDAC MANJEET Administration Polyethylene Glycol 17 gm 04/20/21 12:19 05/15/21 10:49 Polyethylene Glycol 3350 17 Gm Packet PO 17 gm DAILY PRN Administration CONSTIPATION Saccharomyces Boulardii 500 mg 05/05/21 17:00 05/16/21 08:19 Saccharomyces Boulardii 250 Mg Capsule PO 500 mg BIDWM MANJEET Administration Sodium Chloride 10 ml 05/09/21 09:00 05/16/21 08:58 Sodium Chloride Flush 0.9% 10 Ml Syringe IVP Not Given 0100,0900,1700 MANJEET Sodium Chloride 10 ml 05/09/21 02:15 05/16/21 07:51 Sodium Chloride Flush 0.9% 10 Ml Syringe IVP 10 ml PRN PRN Administration Per Line Care protocol Throat Lozenges 1 lozenge 05/12/21 22:05 05/16/21 08:17 Benzocaine/Menthol Lozenge MM 1 lozenge Q2HR PRN Administration Mouth Sore Pain Zinc Oxide 1 gm 04/21/21 23:45 05/16/21 09:04 Cod Liver Oil/Zinc Oxide 113 Gm Tube TOP 1 applic BID MANJEET Administration - Lab Result Fish Bone Diagrams: 05/06/21 06:41 05/06/21 06:41 - Additional Planning My Orders: My Active Orders 05/16/21 11:52 BMP - BASIC METABOLIC PANEL [CHEM] Urgent CBC - COMP BLD CT W/AUTO DIFF [HEME] Urgent 05/17/21 05:00 BMP - BASIC METABOLIC PANEL [CHEM] DAILYLAB CBC - COMP BLD CT W/AUTO DIFF [HEME] DAILYLAB 05/18/21 05:00 BMP - BASIC METABOLIC PANEL [CHEM] DAILYLAB CBC - COMP BLD CT W/AUTO DIFF [HEME] DAILYLAB Subjective - Subjective Patient Reports: Resting Comfortably Objective Vital Signs: Vital Signs - 24 hr 05/16/21 05/16/21 05:40 07:18 Temperature 36.6 C Heart Rate [ 69 Brachial] Respiratory 19 Rate Blood Pressure 164/58 H 157/71 H [Left Brachial artery] O2 Saturation 97 Oxygen O2 Source Room air I&O (Last 24 Hrs): Intake and Output Totals x24h 05/14/21 05/15/21 05/16/21 23:59 23:59 23:59 Intake Total 2720 3040 480 Balance 2720 3040 480 General: Alert, Oriented x3, No acute distress HEENT: Atraumatic Neck: Supple Lymphatic: no adenopathy Neuro: Alert, Non Focal, Oriented Times 3 Cardiovascular: Regular rate, Normal S1, Normal S2 Respiratory: Chest non-tender, No respiratory distress Abdomen: Normal bowel sounds, Soft Extremities: Normal pulses - Results Results: Laboratory Results WBC 7.6 x10^3/uL (4.8-10.8) 05/06/21 06:41 RBC 3.96 10^6/uL (4.70-6.10) L 05/06/21 06:41 Hgb 10.5 g/dL (14.0-18.0) L 05/06/21 06:41 Hct 32.8 % (42.0-52.0) L 05/06/21 06:41 MCV 82.8 fL (80.0-94.0) 05/06/21 06:41 MCH 26.5 pg (27.0-31.0) L 05/06/21 06:41 MCHC 32.0 g/dL (32.0-36.0) 05/06/21 06:41 RDW 15.4 % (12.0-15.0) H 05/06/21 06:41 Plt Count 309 10^3/uL (130-450) 05/06/21 06:41 MPV 10.1 fL (7.4-11.4) 05/06/21 06:41 Neut # (Auto) 5.4 10^3/uL (1.5-6.6) 05/06/21 06:41 Lymph # (Auto) 1.2 10^3/uL (1.5-3.5) L 05/06/21 06:41 [place] # (Auto) 0.7 10^3/uL (0.0-1.0) 05/06/21 06:41 Eos # (Auto) 0.3 10^3/uL (0.0-0.7) 05/06/21 06:41 Baso # (Auto) 0.1 10^3/uL (0.0-0.1) 05/06/21 06:41 Absolute Nucleated RBC 0.00 x10^3/uL 05/06/21 06:41 Nucleated RBC % 0.0 /100WBC 05/06/21 06:41 Sodium 134 mmol/L (135-145) L 05/06/21 06:41 Potassium 4.7 mmol/L (3.5-5.0) 05/06/21 06:41 Chloride 96 mmol/L (101-111) L 05/06/21 06:41 Carbon Dioxide 29 mmol/L (21-32) 05/06/21 06:41 Anion Gap 9.0 (6-13) 05/06/21 06:41 BUN 26 mg/dL (6-20) H 05/06/21 06:41 Creatinine 0.9 mg/dL (0.6-1.2) 05/06/21 06:41 Estimated GFR (MDRD) 83 (>89) L 05/06/21 06:41 Glucose 110 mg/dL (70-100) H 05/06/21 06:41 POC Whole Bld Glucose 131 mg/dL (70 - 100) H 05/16/21 11:12 Estimat Average Glucose 177 mg/dL (70-100) H 05/06/21 06:41 Hemoglobin A1c % 7.8 % (4.27-6.07) H 05/06/21 06:41 Lactic Acid 0.8 mmol/L (0.5-2.2) 05/05/21 14:40 Calcium 9.1 mg/dL (8.5-10.3) 05/06/21 06:41 Total Bilirubin 0.5 mg/dL (0.2-1.0) 04/19/21 18:17 AST 21 IU/L (10-42) 04/19/21 18:17 ALT 23 IU/L (10-60) 04/19/21 18:17 Alkaline Phosphatase 77 IU/L (42-121) 04/19/21 18:17 Total Protein 8.3 g/dL (6.7-8.2) H 04/19/21 18:17 Albumin 4.1 g/dL (3.2-5.5) 04/19/21 18:17 Globulin 4.2 g/dL (2.1-4.2) 04/19/21 18:17 Albumin/Globulin Ratio 1.0 (1.0-2.2) 04/19/21 18:17 Lipase 25 U/L (22-51) 04/19/21 18:17 Nasal Adenovirus (PCR) NOT DETECTED 05/15/21 18:00 Nasal B. parapertussis DNA (PCR) NOT DETECTED 05/15/21 18:00 Nasal Coronavir 229E PCR NOT DETECTED 05/15/21 18:00 Nasal Coronavir HKU1 PCR NOT DETECTED 05/15/21 18:00 Nasal Coronavir NL63 PCR NOT DETECTED 05/15/21 18:00 Nasal Coronavir OC43 PCR NOT DETECTED 05/15/21 18:00 Nasal Enterovir/Rhinovir PCR DETECTED A 05/15/21 18:00 Nasal Influenza B PCR NOT DETECTED 05/15/21 18:00 Nasal Influenza A PCR NOT DETECTED 05/15/21 18:00 Nasal Parainfluen 1 PCR NOT DETECTED 05/15/21 18:00 Nasal Parainfluen 2 PCR NOT DETECTED 05/15/21 18:00 Nasal Parainfluen 3 PCR NOT DETECTED 05/15/21 18:00 Nasal Parainfluen 4 PCR NOT DETECTED 05/15/21 18:00 Nasal RSV (PCR) NOT DETECTED 05/15/21 18:00 Nasal B.pertussis DNA PCR NOT DETECTED 05/15/21 18:00 Nasal C.pneumoniae (PCR) NOT DETECTED 05/15/21 18:00 Javi Human Metapneumo PCR NOT DETECTED 05/15/21 18:00 Nasal M.pneumoniae (PCR) NOT DETECTED 05/15/21 18:00 Nasal SARS-CoV-2 (PCR) NOT DETECTED 05/15/21 18:00 Group A Strep Rapid Negative (Negative) 05/01/21 08:40 ABX Reporting Has patient been on IV antibiotics over the past 48 hours?: Yes Current Medications - Current Medications Current Medications: Active Medications Acetaminophen (Acetaminophen 325 Mg Tablet) 650 mg PO Q4HR PRN PRN Reason: Pain or Fever > 38C (100.4F) Last Admin: 05/16/21 09:03 Dose: 650 mg Documented by: Amlodipine Besylate (Amlodipine 5 Mg Tablet) 10 mg PO DAILY [facility] Last Admin: 05/16/21 08:52 Dose: 10 mg Documented by: Benzocaine (Benzocaine [place]) 1 sprays MM Q6HR PRN PRN Reason: Mouth Sore Pain Clindamycin HCl (Clindamycin 150 Mg Capsule) 300 mg PO Q8HR [facility] Stop: 05/19/21 16:59 Last Admin: 05/16/21 05:28 Dose: 300 mg Documented by: Cyclobenzaprine HCl (Cyclobenzaprine 10 Mg Tablet) 10 mg PO TID PRN PRN Reason: Spasms Last Admin: 05/16/21 03:46 Dose: 10 mg Documented by: Diphenhydramine HCl (Diphenhydramine 25 Mg Capsule) 25 mg PO QPM PRN PRN Reason: Insomnia Last Admin: 05/16/21 03:46 Dose: 25 mg Documented by: Enoxaparin Sodium (Enoxaparin 40 Mg/0.4 Ml Syringe) 40 mg SUBQ DAILY [facility] Last Admin: 05/16/21 08:54 Dose: 40 mg Documented by: Ferrous Sulfate (Ferrous Sulfate 325 Mg Tablet) 325 mg PO Q48H [facility] Last Admin: 05/16/21 08:54 Dose: 325 mg Documented by: Gabapentin (Gabapentin 300 Mg Capsule) 300 mg PO BID [facility] Last Admin: 05/16/21 08:55 Dose: 300 mg Documented by: Guaifenesin (Guaifenesin 600 Mg Tablet) 600 mg PO BID [facility] Last Admin: 05/16/21 08:57 Dose: 600 mg Documented by: Hydralazine HCl (Hydralazine 25 Mg Tablet) 100 mg PO TID [facility] Last Admin: 05/16/21 05:29 Dose: 100 mg Documented by: Ibuprofen (Ibuprofen 400 Mg Tablet) 400 mg PO Q6HR PRN PRN Reason: PAIN Last Admin: 05/16/21 10:23 Dose: 400 mg Documented by: Insulin Aspart (Insulin Aspart 300 Unit/3 Ml Pen) 2 - 10 unit SUBQ 0800,1200,1700,2100 [facility]; Protocol Last Admin: 05/16/21 11:45 Dose: Not Given Documented by: Insulin Glargine (Insulin Glargine 300 Unit/3 Ml Pen) 15 unit SUBQ QPM [facility] Last Admin: 05/15/21 21:04 Dose: 15 unit Documented by: Lisinopril (Lisinopril 20 Mg Tablet) 40 mg PO DAILY [facility] Last Admin: 05/16/21 09:10 Dose: 40 mg Documented by: Morphine Sulfate (Morphine Er 15 Mg Tablet) 15 mg PO Q4HR PRN PRN Reason: PAIN Last Admin: 05/16/21 07:51 Dose: 15 mg Documented by: Multivitamins/Minerals (Multivitamin W/Minerals Tablet) 1 tab PO DAILYWM [facility] Last Admin: 05/16/21 08:19 Dose: 1 tab Documented by: Ondansetron HCl (Ondansetron 4 Mg/2 Ml Vial) 4 mg IVP Q6HR PRN PRN Reason: Nausea / Vomiting Last Admin: 05/16/21 07:48 Dose: 4 mg Documented by: Oxycodone HCl (Oxycodone 5 Mg Tablet) 15 mg PO Q4HR PRN PRN Reason: PAIN Last Admin: 05/16/21 09:10 Dose: 15 mg Documented by: Pantoprazole Sodium (Pantoprazole 40 Mg Tablet) 40 mg PO BIDAC [facility] Last Admin: 05/16/21 05:29 Dose: 40 mg Documented by: Polyethylene Glycol (Polyethylene Glycol 3350 17 Gm Packet) 17 gm PO DAILY PRN PRN Reason: CONSTIPATION Last Admin: 05/15/21 10:49 Dose: 17 gm Documented by: Saccharomyces Boulardii (Saccharomyces Boulardii 250 Mg Capsule) 500 mg PO BIDWM [facility] Last Admin: 05/16/21 08:19 Dose: 500 mg Documented by: Sodium Chloride (Sodium Chloride Flush 0.9% 10 Ml Syringe) 10 ml IVP 0100,0900,1700 [facility] Last Admin: 05/16/21 08:58 Dose: Not Given Documented by: Sodium Chloride (Sodium Chloride Flush 0.9% 10 Ml Syringe) 10 ml IVP PRN PRN PRN Reason: Per Line Care protocol Last Admin: 05/16/21 07:51 Dose: 10 ml Documented by: Throat Lozenges (Benzocaine/Menthol Lozenge) 1 lozenge MM Q2HR PRN PRN Reason: Mouth Sore Pain Last Admin: 05/16/21 08:17 Dose: 1 lozenge Documented by: Zinc Oxide (Cod Liver Oil/Zinc Oxide 113 Gm Tube) 1 gm TOP BID [facility] Last Admin: 05/16/21 09:04 Dose: 1 applic Documented by: Acetaminophen [Tylenol] 650 mg PO Q4HR PRN 04/19/21 Amlodipine Besylate [Norvasc] 10 mg PO DAILY 04/19/21 Carisoprodol [Soma] 350 mg PO DAILY PRN 04/19/21 Ferrous Sulfate 325 mg PO DAILY 04/19/21 Gabapentin [Neurontin] 300 mg PO BID 04/19/21 Hydralazine HCl 100 mg PO TID 04/19/21 Insulin Glargine [Lantus Solostar] 15 unit SQ HS 04/19/21 Lisinopril [Zestril] 40 mg PO DAILY 04/19/21 Melatonin 3 mg PO HS 04/19/21 Morphine ER [Morphine Sulfate ER] 15 mg PO Q4HR PRN 04/19/21 Multivit with Iron,Minerals [Complete Senior] 1 each PO DAILY 04/19/21 Naloxone HCl Nasal [Narcan] 4 mg NS PRN PRN 04/19/21 Oxycodone HCl [Roxicodone] 15 mg PO Q4HR PRN 04/19/21 Pantoprazole [Protonix] 40 mg PO DAILY 04/19/21 Tamsulosin [Flomax] 0.4 mg PO DAILY 04/19/21 polyethylene glycoL 3350 [Miralax] 17 gm PO DAILY PRN 04/19/21
[2021-05-16 13:06] LABS: BASOPHILS # (AUTO) 0.1 10^3/uL (0.0-0.1); BASOPHILS % (AUTO) 0.8 %; EOSINOPHILS # (AUTO) 0.3 10^3/uL (0.0-0.7); EOSINOPHILS % (AUTO) 2.5 %; HCT - HEMATOCRIT 34.4 % (42.0-52.0); HGB - HEMOGLOBIN 11.5 g/dL (14.0-18.0); LYMPHOCYTES # (AUTO) 1.2 10^3/uL (1.5-3.5); LYMPHOCYTES % (AUTO) 11.1 %; MEAN CORPUSCULAR HGB CONC 33.4 g/dL (32.0-36.0); MEAN CORPUSCULAR VOLUME 80.8 fL (80.0-94.0); MEAN PLATELET VOLUME 8.9 fL (7.4-11.4); MONOCYTES # (AUTO) 0.8 10^3/uL (0.0-1.0); MONOCYTES % (AUTO) 7.8 %; NEUTROPHILS # (AUTO) 8.1 10^3/uL (1.5-6.6); NEUTROPHILS % (AUTO) 77.5 %; PLT - PLATELET COUNT 379 10^3/uL (130-450); RED BLOOD COUNT 4.26 10^6/uL (4.70-6.10); RED CELL DISTRIBUTION WIDTH 15.6 % (12.0-15.0); WHITE BLOOD COUNT 10.4 x10^3/uL (4.8-10.8)
[2021-05-16 13:13] LABS: CALCIUM 9.4 mg/dL (8.5-10.3); CREATININE 1.1 mg/dL (0.6-1.2); POTASSIUM 5.1 mmol/L (3.5-5.0)
[2021-05-16] MEDS ORDERED: SODIUM CHLORIDE 0.9% 1,000 ML IV SCH (14:00)
[2021-05-16] MEDS ORDERED: PROCHLORPERAZINE 10 MG/2 ML VIAL IVP PRN (14:42)
--- NOTE | 2021-05-16 15:30 | XRAY Report ---
PROCEDURE: Abdomen 1 View X-Ray INDICATIONS: continue N/V, obstruction? TECHNIQUE: 1 view of the abdomen were acquired. 2 images. COMPARISON: None. FINDINGS: Surgical changes and devices: None. Bowel: No pneumoperitoneum. There are mildly prominent loops of small bowel in the left paramedian a bdomen. Soft tissues: No suspicious abdominal calcifications. Bones: No suspicious bony abnormalities. IMPRESSION: Mildly prominent loops of small bowel in the left abdomen. This could be seen in the setting of small bowel obstruction or ileus. This can be further evaluated with CT abdomen pelvis with IV contrast. Reviewed by: Santos Salcedo MD on 05/16/2021 3:29 PM PST Approved by: Santos Salcedo MD on 05/16/2021 3:29 PM PST Station ID: [id number]
[2021-05-16] MEDS ORDERED: IOPAMIDOL-300 100 ML VIAL ONE (16:57)
[2021-05-16] MEDS: DEXTROSE 5%-0.9% NACL 1,000 ML IV SCH (17:00)
--- NOTE | 2021-05-16 19:22 | CT Report ---
PROCEDURE: Abdomen/Pelvis W INDICATIONS: nausea, vomiting, small bowel obstruction? CONTRAST: IV CONTRAST: Isovue 300 ml: 100 PO CONTRAST: *NO PO CONTRAST TECHNIQUE: After the administration of intravenous contrast, 5 mm thick sections acquired from the diaphragms to the symphysis. 5 mm thick coronal and sagittal reformats were acquired. For radiation dose reducti on, the following was used: automated exposure control, adjustment of mA and/or kV according to rafael ent size. COMPARISON: None. FINDINGS: Image quality: Excellent. ABDOMEN: Lung bases: There is minimal dependent atelectasis. Heart size is normal. Solid organs: Evaluation of the liver demonstrates no focal hepatic lesions. Gallbladder is distended without calcified gallstones or wall thickening. Biliary system is non dilated. The spleen is donato l in size. Pancreas enhances normally without peripancreatic fat stranding or fluid collections. No adrenal nodules. Kidneys demonstrate no hydronephrosis. Peritoneum and bowel: Small bowel loops demonstrate normal wall thickness and caliber. The appendix i s normal in appearance. There is marked stool distention throughout the ascending, transverse, and de scending colon with nondistention of the sigmoid colon. No discrete obstructing mass identified. Find ings are suggestive of constipation or obstipation. No free fluid or air. Nodes and vessels: No retroperitoneal or mesenteric adenopathy by size criteria. Aorta and inferior vena cava are normal in size. Miscellaneous: No ventral hernias. PELVIS: Genitourinary: Bladder wall thickness is normal. There is marked distention of the urinary bladder. Miscellaneous: No inguinal hernias or adenopathy. Bones: No suspicious bony lesions. No vertebral body compression fractures. There is multilevel deg enerative disc disease including moderate to severe degeneration at L3-L4 L4-L5, and L5-S1. There is grade 1 anterolisthesis at L4-5. IMPRESSION: 1. No evidence of small bowel obstruction as clinically queried. 2. Marked stool distention of the colon extending to the sigmoid colon suggestive of constipation or obstipation. No obstructing mass lesion identified. 3. Marked distention of the urinary bladder may reflect bladder outlet obstruction or urinary retenti on. Reviewed by: Lorenzo Rush MD on 05/16/2021 7:21 PM PST Approved by: Lorenzo Rush MD on 05/16/2021 7:21 PM PST Station ID: [id number]
[2021-05-16] MEDS ORDERED: IOPAMIDOL-300 100 ML VIAL IVP ONE (20:30)
[2021-05-16] MEDS: INSULIN GLARGINE 300 UNIT/3 ML PEN SUBQ SCH (21:03)
[2021-05-17] MEDS: SODIUM CHLORIDE FLUSH 0.9% 10 ML SYRINGE IVP SCH ×2 (00:30→09:01)
[2021-05-17] MEDS: CYCLOBENZAPRINE 10 MG TABLET PO PRN (03:00)
[2021-05-17] MEDS: oxyCODONE 5 MG TABLET PO PRN (03:00)
[2021-05-17] MEDS: DEXTROSE 5%-0.9% NACL 1,000 ML IV SCH (03:01)
[2021-05-17] MEDS: diphenhydrAMINE 25 MG CAPSULE PO PRN (03:01)
[2021-05-17] MEDS: ACETAMINOPHEN 325 MG TABLET PO PRN (03:01)
[2021-05-17] MEDS: polyethylene glycoL 3350 17 GM PACKET PO PRN (03:07)
[2021-05-17] MEDS: CLINDAMYCIN 150 MG CAPSULE PO SCH (06:07)
[2021-05-17] MEDS: hydrALAZINE 25 MG TABLET PO SCH (06:07)
[2021-05-17] MEDS: PANTOPRAZOLE 40 MG TABLET PO SCH (06:08)
[2021-05-17] MEDS: INSULIN ASPART 300 UNIT/3 ML PEN SUBQ SCH (07:35)
--- NOTE | 2021-05-17 08:40 | Discharge Plan ---
"Discharge Plan for SNF / [facility] - Discharge Plan And Transition Orders Problem Reviewed?: Yes Disposition: 03 SNF DC/Xfer Condition: Stable Allergies and Adverse Reactions: Allergies Allergy/AdvReac Type Severity Reaction Status Date / Time ceftriaxone sodium * Allergy Severe burning in Verified 04/19/21 17:36 [From Rocephin] lungs prednisone Allergy Severe breathing Verified 04/19/21 17:36 problems vancomycin Allergy Severe bleeding Verified 04/19/21 17:36 from eyes and ears NSAIDS (Non-Steroidal Allergy Intermediate stomach Verified 04/19/21 17:36 Anti-Inflamma problems amoxicillin [From Augmentin] Allergy Unknown Verified 04/19/21 17:36 bee venom protein (honey bee) Allergy Anaphylaxis Verified 04/19/21 17:36 cephalexin Allergy Unknown Verified 04/19/21 17:36 ciprofloxacin Allergy abdominal Verified 04/19/21 17:36 pain ciprofloxacin HCl * Allergy abdominal Verified 04/19/21 17:36 [From Cipro] pain clavulanic acid Allergy Unknown Verified 04/19/21 17:36 [From Augmentin] piroxicam [From Feldene] Allergy Unknown Verified 04/19/21 17:36 pravastatin [From Pravachol] Allergy Unknown Verified 04/19/21 17:36 reserpine Allergy Unknown Verified 04/19/21 17:36 rosiglitazone [From Avandia] Allergy Unknown Verified 04/19/21 17:36 Health Concerns: cellulitis, hyponatremia Plan of Treatment: pt is prescribed antibiotics for the treatment course for left second toe cellulitis. Xray show no osseous erosion identified. pt may followup bill of materials clerk as out-pt and nurse dress change. Pt tolerated diet without nausea or vomiting now. his sodium was 125. pt may have BMP check in 1-3 days. Care Goals: Stabilization and improvement of patient's medical conditions Assessment: Discussed the care plan with the patient, answered patient's questions, patient understood - SNF / NURSING HOME Transition Orders Admit to (Facility): [facility] Under the care of (Name): medical provider of [facility] Discharge Diagnosis: Cellulitis, Nausea and vomiting, diabetes, mobility impaired with With right BKA and left partial greater toe amputation, Hypertension, chronic pain. Medicare Certification Statement: I certify that [facility] care is medically necessary on a continuing basis for any of the conditions for which she/he is receiving care during hospitalization. Notify PCP of admission and forward orders to primary provider for signature. Weight on admission and: Weekly Call PCP immediately if weight increases by: 2 kg Other Notification Orders: Call PCP immediately if patient develops dyspnea, chest pain/tightness or edema. House Bowel Program: Yes Additional Bowel Program Orders: If no BM after 2 days, nurse may give M.O.M. 30ml PO PRN and/or ducolax Supp 1 NV and/or SIMI 250mg P.O., and/or senna 1-2 tabs PO. On day 3 nurse may give repeat above order until residents constipation is resolved. Annual Influenza Vaccine (between Jan 25 and August 24): Yes Two-step PPD per [facility] [phone] or approved exception documents: Yes Treatments & Other Orders: pt is prescribed antibiotics for the treatment course for left second toe cellulitis. Xray show no osseous erosion identified. pt may followup bill of materials clerk as out-pt and nurse dress change. Pt tolerated diet without nausea or vomiting now. his sodium was 125. pt may have BMP check in 1-3 days. Medication Orders: PLEASE REFER TO THE DISCHARGE MEDICATION LIST. Insulin Orders?: No - Medications New Prescriptions: Clindamycin [Cleocin] 300 mg PO Q8HR #18 cap Saccharomyces Boulardii [Florastor] 500 mg PO BIDWM #12 cap - Diet Type: Geriatric Texture: Regular Liquids: Thin May have monthly special meal: Yes - Therapies | Activity Rehabilitation Potential: Maximize functional status Activity: Activity as Tolerated"
[2021-05-17] MEDS: MULTIVITAMIN W/MINERALS TABLET PO SCH (08:57)
[2021-05-17] MEDS: ENOXAPARIN 40 MG/0.4 ML SYRINGE SUBQ SCH (08:57)
[2021-05-17] MEDS: SACCHAROMYCES BOULARDII 250 MG CAPSULE PO SCH (08:58)
[2021-05-17] MEDS: amLODIPine 5 MG TABLET PO SCH (08:58)
[2021-05-17] MEDS: COD LIVER OIL/ZINC OXIDE 113 GM TUBE TOP SCH (08:59)
[2021-05-17] MEDS: GABAPENTIN 300 MG CAPSULE PO SCH (09:00)
[2021-05-17] MEDS: guaiFENesin 600 MG TABLET PO SCH (09:00)
[2021-05-17] MEDS: lisinopriL 20 MG TABLET PO SCH (09:00)
--- NOTE | 2021-05-17 09:00 | DISCHARGE SUMMARY ---
Discharge Summary Admit Date: 05/05/21 Discharge Date: 05/17/21 Discharging Provider: Randy De La Torre Primary Care Provider: Cherie Villarreal Condition at Discharge: Stable Discharge Disposition: SNF DC/Xfer Discharge Facility Name: [facility] - DIAGNOSES Discharge Diagnoses with Status of Each Condition: (1) Nausea and vomiting resolved. pt tolerated regular without nausea, vomiting or abdominal pain. it is likely caused by virus gastritis. pt's sodium became 131. continue keep hydration. (2) Cellulitis significantly improved. left second toe show very mild erythema. 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 x-ray of left feet reveal no osseous erosion is identified. pt is prescribed antibiotics and probiotics for treatment course. pt may followup with his PCP, and his alarm installer to continue care as out-pt. (3) DMII (diabetes mellitus, type 2) A1C is 7.8, resume home insulin (4) Mobility impaired pt had amputation on left first toe and right BKA. d/c nurse home for continuing care. pt may followup with his PCP, and his alarm installer to continue care as out- pt. (5) HTN (hypertension) stable, resume home meds (6) Chronic pain resume home meds. pt may followup with his PCP to continue his pain management as out-pt. - HPI History of Present Illness: This is a 75 years old male with a past medical history Significant for hypertension, chronic pain syndrome, uncontrolled diabetes, who recently had right below the knee amputation and left partial great toe amputation. pt report Dr. Hina Alcaraz Senior Oracle Database Developer did surgery for him at [facility]. pt was discharged to the [facility] in [place]. But The [facility] do not feel that they can adequately meet pt's care needs Per ER's note, then pt has been already boarding to our ER for 14 days. our professor of social work was consulted for replacement for pt. Today medical team was consulted for medical management for pt and Dr. Maria asked me consult for medical management for pt at ER. The only complaint pt has on today is that he just find his left second toe has mild erythema and mild swelling, comparing when he was discharged from [facility] two weeks ago. He denies fever, chill, pain, shortness of breath, chest pain. he report he has good energy and good appetite as well. - ALLERGIES Allergies/Adverse Reactions: Allergies Allergy/AdvReac Type Severity Reaction Status Date / Time ceftriaxone sodium * Allergy Severe burning in Verified 04/19/21 17:36 [From Rocephin] lungs prednisone Allergy Severe breathing Verified 04/19/21 17:36 problems vancomycin Allergy Severe bleeding Verified 04/19/21 17:36 from eyes and ears NSAIDS (Non-Steroidal Allergy Intermediate stomach Verified 04/19/21 17:36 Anti-Inflamma problems amoxicillin [From Augmentin] Allergy Unknown Verified 04/19/21 17:36 bee venom protein (honey bee) Allergy Anaphylaxis Verified 04/19/21 17:36 cephalexin Allergy Unknown Verified 04/19/21 17:36 ciprofloxacin Allergy abdominal Verified 04/19/21 17:36 pain ciprofloxacin HCl * Allergy abdominal Verified 04/19/21 17:36 [From Cipro] pain clavulanic acid Allergy Unknown Verified 04/19/21 17:36 [From Augmentin] piroxicam [From Feldene] Allergy Unknown Verified 04/19/21 17:36 pravastatin [From Pravachol] Allergy Unknown Verified 04/19/21 17:36 reserpine Allergy Unknown Verified 04/19/21 17:36 rosiglitazone [From Avandia] Allergy Unknown Verified 04/19/21 17:36 - MEDICATIONS Home Medications: Ambulatory Orders Medication Instructions Recorded Confirmed Acetaminophen [Tylenol] 650 mg PO Q4HR PRN 04/19/21 04/19/21 Amlodipine Besylate [Norvasc] 10 mg PO DAILY 04/19/21 04/19/21 Carisoprodol [Soma] 350 mg PO DAILY PRN 04/19/21 04/19/21 Ferrous Sulfate 325 mg PO DAILY 04/19/21 04/19/21 Gabapentin [Neurontin] 300 mg PO BID 04/19/21 04/19/21 Hydralazine HCl 100 mg PO TID 04/19/21 04/19/21 Insulin Glargine [Lantus Solostar] 15 unit SQ HS 04/19/21 04/19/21 Lisinopril [Zestril] 40 mg PO DAILY 04/19/21 04/19/21 Melatonin 3 mg PO HS 04/19/21 04/19/21 Morphine ER [Morphine Sulfate ER] 15 mg PO Q4HR PRN 04/19/21 04/19/21 Multivit with Iron,Minerals 1 each PO DAILY 04/19/21 04/19/21 [Complete Senior] Naloxone HCl Nasal [Narcan Nasal] 4 mg NS PRN PRN 04/19/21 04/19/21 Oxycodone HCl [Roxicodone] 15 mg PO Q4HR PRN 04/19/21 04/19/21 Pantoprazole [Protonix] 40 mg PO DAILY 04/19/21 04/19/21 Tamsulosin [Flomax] 0.4 mg PO DAILY 04/19/21 04/19/21 polyethylene glycoL 3350 [Miralax] 17 gm PO DAILY PRN 04/19/21 04/19/21 Clindamycin [Cleocin] 300 mg PO Q8HR #18 cap 05/17/21 Saccharomyces Boulardii [Florastor] 500 mg PO BIDWM #12 cap 05/17/21 - PHYSICAL EXAM AT DISCHARGE General Appearance: positive: No acute distress, Alert. negative: Lethargic Eyes Bilateral: positive: Normal inspection, No lid inflammation ENT: positive: ENT inspection nml, No signs of dehydration. negative: Purulent nasal drainage Neck: positive: Nml inspection, Trachea midline. negative: Thyromegaly, Tracheal deviation Respiratory: positive: Chest non-tender, No respiratory distress, Breath sounds nml. negative: Wheezes Cardiovascular: positive: Regular rate & rhythm, No murmur. negative: Tachycardia, Bradycardia, Systolic murmur Peripheral Pulses: positive: 2+ Abdomen: positive: Non-tender, Nml bowel sounds, No distention. negative: Tenderness Back: positive: Nml inspection Skin: positive: Color nml, Warm, Dry. negative: Cyanosis Extremities: positive: Non-tender, Other (right BKA surgery site is already healed. left big toe surgery site is healing, no infection indicated. left second toe show mild erythema. ) Neurologic/Psychiatric: positive: Oriented x3, Sensation nml, Mood/affect nml. negative: Weakness, Sensory loss, Facial droop, Slurred/abnml speech, Depressed mood/affect - LABS Result Diagrams: 05/17/21 08:56 05/17/21 08:56 - FOLLOW UP Follow Up: pt is prescribed antibiotics for the treatment course for left second toe cellulitis. Xray show no osseous erosion identified. pt may followup alarm installer as out-pt and nurse dress change. Pt tolerated diet without nausea or vomiting or abdominal pain. his nausea and vomiting symptoms are resolved. pt may keep hydration at nurse home. - TIME SPENT Time Spent in Discharge (Minutes): 30
[2021-05-17 09:03] LABS: BASOPHILS # (AUTO) 0.1 10^3/uL (0.0-0.1); EOSINOPHILS # (AUTO) 0.2 10^3/uL (0.0-0.7); EOSINOPHILS % (AUTO) 2.9 %; HCT - HEMATOCRIT 33.6 % (42.0-52.0); HGB - HEMOGLOBIN 11.2 g/dL (14.0-18.0); LYMPHOCYTES % (AUTO) 13.8 %; MEAN CORPUSCULAR HEMOGLOBIN 26.9 pg (27.0-31.0); MEAN CORPUSCULAR HGB CONC 33.3 g/dL (32.0-36.0); MEAN CORPUSCULAR VOLUME 80.8 fL (80.0-94.0); MEAN PLATELET VOLUME 8.8 fL (7.4-11.4); MONOCYTES # (AUTO) 0.6 10^3/uL (0.0-1.0); MONOCYTES % (AUTO) 7.8 %; NEUTROPHILS # (AUTO) 5.4 10^3/uL (1.5-6.6); NEUTROPHILS % (AUTO) 74.4 %; PLT - PLATELET COUNT 380 10^3/uL (130-450); RED BLOOD COUNT 4.16 10^6/uL (4.70-6.10); RED CELL DISTRIBUTION WIDTH 15.8 % (12.0-15.0); WHITE BLOOD COUNT 7.3 x10^3/uL (4.8-10.8)
[2021-05-17 09:13] LABS: CALCIUM 8.8 mg/dL (8.5-10.3); CREATININE 0.9 mg/dL (0.6-1.2); POTASSIUM 4.5 mmol/L (3.5-5.0)
[2021-05-17 09:17] VITALS: BP 181/54
== END 2021-05-17 11:38 ==
LOC: EDBD → EDUNIT# → ED 17:07 → UNDOADMOB 04-20 08:00 → MS2 04-20 08:00
PROVIDERS: ADMIT Nurse Practitioner Gerontology; ATTEND Nurse Practitioner Gerontology
DX: L03.032 Cellulitis of left toe (principal); E11.628 Type 2 diabetes mellitus with other skin complications; R11.2 Nausea with vomiting, unspecified; Z79.899 Other long term (current) drug therapy; Z74.09 Other reduced mobility; I10 Essential (primary) hypertension; Z89.511 Acquired absence of right leg below knee; Z89.412 Acquired absence of left great toe; G89.4 Chronic pain syndrome; F11.20 Opioid dependence, uncomplicated; Z79.4 Long term (current) use of insulin; Z99.3 Dependence on wheelchair; R33.9 Retention of urine, unspecified; R05.9 Cough, unspecified; R51.9 Headache, unspecified; Z20.822 Contact with and (suspected) exposure to COVID-19
CPT/HCPCS: 36415; 71045; 73620; 74018; 74177; 80048; 80053; 83036; 83605; 83690; 85025; 87040; 87070; 87430; 87631; 96372; 96374; 96376; 99284; A9270; J1650; J1815; Q9967; 0202U